=== PATIENT | female | born 1950 | race African-American/Black ===

== ENCOUNTER 2016-04-05 17:34 | Emergency (ER) | payer OTHER ==
[~2016-04-05] VITALS: Wt 48.0 kg
[~2016-04-05 17:34] MED LIST: AMLO-145 PO; CLOP75TA27 PO; LEVE-5 PO; LISI20TA11 PO; SIMV20TA6 PO
[2016-04-05] MEDS ORDERED: FAMOTIDINE 20 MG INJ IV STA (19:03)
[2016-04-05] MEDS ORDERED: SOD CHLORIDE 0.9% 1,000 ML IV STA (19:03)
[2016-04-05] MEDS ORDERED: ONDANSETRON 4 MG INJ IV STA (19:03)
[2016-04-05 19:47] LABS: BASOPHILS % 0.5 % (0.0-2.0); HEMATOCRIT 35.1 % (37.0-47.0); HEMOGLOBIN 11.7 g/dl (12.0-16.0); LYMPHOCYTES # 1.7 10^3/ul (0.8-2.9); LYMPHOCYTES % 34.2 % (15.0-51.0); MEAN CORPUSCULAR HGB CONC 33.5 g/dl (32.0-37.0); MEAN CORPUSCULAR VOLUME 86.7 fl (82.0-101.0); MEAN PLATELET VOLUME 9.3 fl (7.4-10.4); MONOCYTE # 0.4 10^3/ul (0.3-0.9); MONOCYTES % 7.9 % (0.0-11.0); NEUTROPHIL # 2.8 10^3/ul (1.6-7.5); NEUTROPHILS % 56.4 % (39.0-77.0); PLATELET COUNT 167 10^3/UL (140-440); RED BLOOD COUNT 4.05 10^6/ul (4.20-5.40); RED CELL DISTRIBUTION WIDTH 14.5 % (11.5-14.5); WHITE BLOOD COUNT 4.9 10^3/ul (4.8-10.8)
[2016-04-05 19:50] LABS: CONDITION 1; LH ANALYZER COMMENTS 1; SUSPECT 1; UNCORRECTED WBC 5.4 10^3/ul (4.8-10.8)
--- NOTE | 2016-04-05 19:54 | RADRPT ---
PROCEDURE: XR Chest. CLINICAL INDICATION: Abdominal pain. TECHNIQUE: Single frontal view of the chest was obtained COMPARISON: 02/28/2016. FINDINGS: Cardiomegaly. Atherosclerotic calcifications in the thoracic aorta. Hyperinflation suggests a degr ee of COPD. Likely changes of centrolobular emphysema. Lungs otherwise clear. There is no pleural effusion or pneumothorax. IMPRESSION: 1. Cardiomegaly and atherosclerotic calcifications in the thoracic aorta. 2. Otherwise, no evident acute cardiopulmonary disease. RPTAT: [facility] Physician Caryn Date Time Electronically viewed and signed by Jameson Dao Physician on 04/05/2016 19:53 RS/
[2016-04-05 20:06] LABS: ADD UMIC YES; URINE BILIRUBIN (Dip) 1+ (NEGATIVE); URINE BLOOD (Dip) TRACE (NEGATIVE); URINE COLOR LT. YELLOW (YELLOW); URINE GLUCOSE (Dip) NEGATIVE (NEGATIVE); URINE KETONES (Dip) 15 (NEGATIVE); URINE LEUKOCYTE ESTERASE (Dip) 2+ (NEGATIVE); URINE NITRITE (Dip) NEGATIVE (NEGATIVE); URINE TOTAL PROTEIN (Dip) TRACE (NEGATIVE); URINE UROBILINOGEN (Dip) 2.0 E.U./dL (0.1-1.0)
[2016-04-05 20:13] LABS: ALBUMIN 4.4 g/dl (3.3-4.9)
[2016-04-05 20:14] LABS: POTASSIUM 3.8 mmol/L (3.5-5.1)
[2016-04-05 20:16] LABS: ALBUMIN/GLOBULIN RATIO 1.33; BILIRUBIN,INDIRECT 0.5 mg/dl (0-1.1); BILIRUBIN,TOTAL 0.5 mg/dl (0.2-1.3); CREATININE 0.75 mg/dl (0.44-1.00); TOTAL PROTEIN 7.7 g/dl (6.1-8.1)
[2016-04-05 20:17] LABS: CALCIUM 10.7 mg/dl (8.4-10.2)
[2016-04-05 20:52] LABS: BACTERIA,URINE MODERATE; ICTOTEST NEGATIVE (NEGATIVE); SQUAMOUS EPITHELIAL CELL,UR MODERATE; URINE RBCS 0-2 /HPF (0)
[2016-04-05] MEDS ORDERED: CEFTRIAXONE 1 GM/50 ML (PMX) 50 ML IVPB ONE (21:00)
[2016-04-05] MEDS ORDERED: DEXTROSE 5%-0.45% NACL 1,000 ML IV ONE (21:04)
[2016-04-05] MEDS ORDERED: DEXTROSE 5%-0.45% NACL 1,000 ML IV SCH (21:04)
[2016-04-05] MEDS ORDERED: BACTDS PO (21:35)
[2016-04-05] MEDS ORDERED: ONDA4TAB8 PO (21:35)
--- NOTE | 2016-04-05 21:35 | ERD ---
ER Documentation Chief Complaint Date/Time DATE: 04/05/16 TIME: 21:32 Chief Complaint WEAKNESS, DIZZINESS, NOT EATING, NO MAHER HPI This is a 64-year-old female who presents to the emergency room for evaluation of weakness, and decreased appetite for the past 2 days. According to the patient and the patient's son she has not a food in the past 2 days, has been generally feeling weak. The patient denies any chest pain or palpitations associated with this and came to the ER today for evaluation. Patient's denies any fevers associated with this as well ROS All systems reviewed and are negative except as per history of present illness. Medications Home Meds Reported Medications Levetiracetam* (Keppra*) 500 Mg Tablet, 500 MG PO BID, TAB 02/24/16 Clopidogrel Bisulfate (Clopidogrel) 75 Mg Tablet, 75 MG PO DAILY, #30 TAB 02/24/16 Amlodipine Besylate* (Amlodipine Besylate*) 5 Mg Tablet, 5 MG PO DAILY, #30 02/24/16 Simvastatin (Simvastatin) 20 Mg Tablet, 20 MG PO QHS, #30 02/24/16 Lisinopril* (Lisinopril*) 20 Mg Tablet, 20 MG PO DAILY, #30 TAB 02/24/16 Allergies Allergies: Coded Allergies: codeine (Verified Allergy, Severe, 02/28/16) PMhx/Soc History of Surgery: No Anesthesia Reaction: No Hx Neurological Disorder: Yes (stroke 12/2015) Hx Respiratory Disorders: No Hx Cardiac Disorders: Yes (Hypertension) Hx Psychiatric Problems: No Hx Miscellaneous Medical Probl: Yes (CVAx2, seizure, HTN, dsylipidemia) Hx Alcohol Use: No Hx Substance Use: No Hx Tobacco Use: Yes (Former smoker) Smoking Status: Former smoker Physical Exam Vitals Vital Signs Date Time Temp Pulse Resp B/P Pulse Ox O2 Delivery O2 Flow Rate FiO2 04/05/16 20:43 60 16 150/119 100 Room Air 04/05/16 17:53 98.1 74 18 154/87 100 Physical Exam INITIAL VITAL SIGNS: Reviewed by me GENERAL: The patient is well developed and appropriate for usual state of health in no apparent distress HEENT: Dry mucous membranes, pupils equal, round, and reactive to light. EOMI. There is no scleral icterus. NECK: C-spine is soft and supple, there is no meningismus. There is no cervical lymphadenopathy. LUNGS: Clear to auscultation bilaterally. There are no rales, wheezes or rhonchi. HEART: Regular rate and rhythm, no murmurs, clicks, rubs or gallops. ABDOMEN: Soft, non-tender, non-distended. There are bowel sounds in all four quadrants. No rebound or guarding. EXTREMITIES: There is no peripheral cyanosis or edema. No focal swelling or erythema. NEUROLOGICAL: The patient moves all four extremities with 5/5 strength. Cranial nerves II - XII are intact. Normal gait. Alert and oriented SKIN: There is no apparent rash or petechiae. HEME/LYMPHATIC: There is no evidence of excessive bruising or lymphedema. PSYCHIATRIC: The patient does not appear anxious or depressed. Result Diagram: 04/05/16192904/05/161929 Results 24 hrs Laboratory Tests Test 04/05/16 19:30 04/05/16 19:45 Alanine Aminotransferase (ALT/SGPT) 30IU/L Albumin 4.4g/dl Albumin/Globulin Ratio 1.33 Alkaline Phosphatase 66IU/L Anion Gap 16 Aspartate Amino Transf (AST/SGOT) 27IU/L Basophils # 0.010^3/ul Basophils % 0.5% Blood Morphology Comment Blood Urea Nitrogen 11mg/dl Calcium Level 10.7mg/dl Carbon Dioxide Level 28mmol/L Chloride Level 107mmol/L Creatinine 0.75mg/dl Direct Bilirubin 0.00mg/dl Eosinophils # 0.010^3/ul Eosinophils % 1.0% Globulin 3.30g/dl Glucose Level 77mg/dl Hematocrit 35.1% Hemoglobin 11.7g/dl Indirect Bilirubin 0.5mg/dl Lipase 116U/L Lymphocytes # 1.710^3/ul Lymphocytes % 34.2% Mean Corpuscular Hemoglobin 29.0pg Mean Corpuscular Hemoglobin Concent 33.5g/dl Mean Corpuscular Volume 86.7fl Mean Platelet Volume 9.3fl Monocytes # 0.410^3/ul Monocytes % 7.9% Neutrophils # 2.810^3/ul Neutrophils % 56.4% Nucleated Red Blood Cells # 0.010^3/ul Nucleated Red Blood Cells % 0.0/100WBC Platelet Count 41359^3/UL Potassium Level 3.8mmol/L Red Blood Count 4.0510^6/ul Red Cell Distribution Width 14.5% Sodium Level 147mmol/L Total Bilirubin 0.5mg/dl Total Protein 7.7g/dl White Blood Count 4.910^3/ul Urine Bacteria MODERATE Urine Bilirubin 1+ Urine Calcium Oxalate Crystals MODERATE Urine Clarity CLOUDY Urine Color LT. YELLOW Urine Glucose NEGATIVE% Urine Hemoglobin TRACE Urine Ictotest NEGATIVE Urine Ketones 15 Urine Leukocyte Esterase 2+ Urine Microscopic RBC 0-2/HPF Urine Microscopic WBC 5-10/HPF Urine Nitrite NEGATIVE Urine Specific [place] >=1.030 Urine Squamous Epithelial Cells MODERATE Urine Total Protein TRACE Urine Urobilinogen 2.0 E.U./dL Urine pH 6.0 Current Medications Medications (Trade) Dose Ordered Sig/Angie Route PRN Reason Start Time Stop Time Status Last Admin Dose Admin Sodium Chloride (NS) 1,000 ml @ 1,000 mls/hr Q1H STAT IV 04/05/16 19:03 04/05/16 20:02 DC 04/05/16 19:28 Ondansetron HCl (Zofran Inj) 4 mg ONCE STAT IV 04/05/16 19:03 04/05/16 19:04 DC Famotidine 20 mg 20 mg ONCE STAT IV 04/05/16 19:03 04/05/16 19:04 DC 04/05/16 19:28 Ceftriaxone Sodium 50 ml @ 100 mls/hr ONCE ONCE IVPB 04/05/16 21:00 04/05/16 21:29 DC 04/05/16 20:54 Dextrose/Sodium Chloride 1,000 ml @ 500 mls/hr Q2H ONCE IV 04/05/16 21:04 04/05/16 23:03 04/05/16 21:24 Dextrose/Sodium Chloride (D5-1/2ns) 1,000 ml @ 0 mls/hr Q0M IV 04/05/16 21:04 04/05/16 21:06 DC Procedures/MDM This is a 65-year-old female who presents to the emergency room for evaluation of decreased appetite, generalized weakness. When I evaluated this patient she did have dry mucous membranes on my examination. Lab work was obtained including a urinalysis which does show an acute urinary tract infection and mild dehydration. This patient was given 1 L of normal saline, and 1 L of D5 half-normal saline. The patient was also given 1 g Rocephin for her acute urinary tract infection. She is tolerating p.o. challenge at this time, she is hemodynamically stable and appears to be in no acute distress at this time. She will be discharged home with a prescription for Bactrim, and Zofran for nausea. Departure Diagnosis: Primary Impression: Acute cystitis Additional Impressions: Mild dehydration Normocytic anemia Condition: Stable ASHLEE YUEN DO Apr 05, 2016 21:35
[2016-04-05 23:40] VITALS: BP 145/109; PULSE 82; RESP 16; TEMP 98.1
== END 2016-04-05 22:00 | disposition home or self-care (01) ==
LOC: E/R 17:34
DX: N30.00 Acute cystitis without hematuria (principal); E86.0 Dehydration; D64.9 Anemia, unspecified; I10 Essential (primary) hypertension; R40.2142 Coma scale, eyes open, spontaneous, at arrival to emergency department; R40.2252 Coma scale, best verbal response, oriented, at arrival to emergency department; R40.2362 Coma scale, best motor response, obeys commands, at arrival to emergency department; Z87.891 Personal history of nicotine dependence
CPT/HCPCS: 36415; 71010; 80053; 81001; 83690; 85025; 96374; 96375; 99284; J0696; J2405; J7030; 81003

== ENCOUNTER 2016-05-03 21:14 | Emergency (ER) | payer SELFPAY ==
[~2016-05-03] VITALS: Ht 157.5 cm; Wt 54.5 kg
[~2016-05-03 21:14] MED LIST changes: +BACTDS PO; +ONDA4TAB8 PO
[2016-05-03 21:21] VITALS: Ht 157.5 cm; Wt 54.5 kg
[2016-05-03] MEDS ORDERED: LORAZEPAM 2 MG INJ ONE (21:26)
[2016-05-03] MEDS ORDERED: LORAZEPAM 2 MG INJ IV ONE ×2 (22:00)
[2016-05-03] MEDS ORDERED: SOD CHLORIDE 0.9% 500 ML IV ONE (23:00)
[2016-05-03] MEDS ORDERED: LEVETIRACETAM IV 1,000 MG in DEXTROSE 5% 100 ML IVPB ONE (23:00)
[2016-05-03 23:28] LABS: ALBUMIN 4.2 g/dl (3.3-4.9)
[2016-05-03 23:29] LABS: POTASSIUM 4.5 mmol/L (3.5-5.1)
[2016-05-03 23:31] LABS: ALBUMIN/GLOBULIN RATIO 1.61; BILIRUBIN,INDIRECT 0.4 mg/dl (0-1.1); BILIRUBIN,TOTAL 0.4 mg/dl (0.2-1.3); CREATININE 0.69 mg/dl (0.44-1.00); TOTAL PROTEIN 6.8 g/dl (6.1-8.1)
[2016-05-03 23:32] LABS: MAGNESIUM 2.1 mg/dl (1.7-2.5)
[2016-05-03 23:35] LABS: BASOPHILS % 0.4 % (0.0-2.0); EOSINOPHILS % 0.5 % (0.0-7.0); HEMATOCRIT 31.7 % (37.0-47.0); HEMOGLOBIN 10.7 g/dl (12.0-16.0); LYMPHOCYTES % 21.8 % (15.0-51.0); MEAN CORPUSCULAR HEMOGLOBIN 29.9 pg (29.0-33.0); MEAN CORPUSCULAR HGB CONC 33.7 g/dl (32.0-37.0); MEAN CORPUSCULAR VOLUME 88.7 fl (82.0-101.0); MEAN PLATELET VOLUME 8.7 fl (7.4-10.4); MONOCYTE # 0.4 10^3/ul (0.3-0.9); MONOCYTES % 9.3 % (0.0-11.0); NEUTROPHIL # 3.2 10^3/ul (1.6-7.5); PLATELET COUNT 297 10^3/UL (140-440); RED BLOOD COUNT 3.57 10^6/ul (4.20-5.40); UNCORRECTED WBC 4.7 10^3/ul (4.8-10.8); WHITE BLOOD COUNT 4.7 10^3/ul (4.8-10.8)
[2016-05-03 23:42] LABS: CONDITION 1; LH ANALYZER COMMENTS 1
--- NOTE | 2016-05-04 02:52 | ERD ---
ER Documentation Chief Complaint Date/Time DATE: 05/04/16 TIME: 02:50 Chief Complaint c/o bilat leg cramps, h/o same fqtly. appears spastic, h/o sz's HPI This 62 year female comes in with complaints of bilateral leg has been she said she feels short any focal partial seizures. She denies being complaint with her Keppra. No fevers no chills. No tongue biting no incontinence. ROS All systems reviewed and are negative except as per history of present illness. Medications Home Meds Active Scripts Ondansetron Hcl* (Zofran*) 4 Mg Tablet, 4 MG PO Q8H Y for NAUSEA AND/OR VOMITING , #12 TAB Prov:ASHLEE YUEN DO 04/05/16 Sulfamethoxazole-Trimethoprim* (Bactrim* DS) 800-160 Mg Tab, 1 TAB PO BID for 10 Days, TAB Prov:ASHLEE YUEN DO 04/05/16 Reported Medications Levetiracetam* (Keppra*) 500 Mg Tablet, 500 MG PO BID, TAB 02/24/16 Clopidogrel Bisulfate (Clopidogrel) 75 Mg Tablet, 75 MG PO DAILY, #30 TAB 02/24/16 Amlodipine Besylate* (Amlodipine Besylate*) 5 Mg Tablet, 5 MG PO DAILY, #30 02/24/16 Simvastatin (Simvastatin) 20 Mg Tablet, 20 MG PO QHS, #30 02/24/16 Lisinopril* (Lisinopril*) 20 Mg Tablet, 20 MG PO DAILY, #30 TAB 02/24/16 Allergies Allergies: Coded Allergies: codeine (Verified Allergy, Severe, 02/28/16) PMhx/Soc History of Surgery: No Anesthesia Reaction: No Hx Neurological Disorder: Yes (stroke 12/2015) Hx Respiratory Disorders: No Hx Cardiac Disorders: Yes (Hypertension) Hx Psychiatric Problems: No Hx Miscellaneous Medical Probl: Yes (CVAx2, seizure, HTN, dsylipidemia) Hx Alcohol Use: No Hx Substance Use: No Hx Tobacco Use: Yes (Former smoker) Smoking Status: Current every day smoker Physical Exam Vitals Vital Signs Date Time Temp Pulse Resp B/P Pulse Ox O2 Delivery O2 Flow Rate FiO2 05/04/16 02:46 60 18 144/68 100 Room Air 05/04/16 01:00 64 18 139/69 100 Room Air 05/03/16 23:11 89 22 121/63 95 Room Air 05/03/16 21:21 98.4 83 20 142/74 97 Physical Exam Const: [] Head: Atraumatic Eyes: Normal Conjunctiva ENT: Normal External Ears, Nose and Mouth. Neck: Full range of motion..~ No meningismus. Resp: Clear to auscultation bilaterally Cardio: Regular rate and rhythm, no murmurs Abd: Soft, non tender, non distended. Normal bowel sounds Skin: No petechiae or rashes Back: No midline or flank tenderness Ext: No cyanosis, or edema Neur: Awake and alert Psych: Normal Mood and Affect Result Diagram: 05/03/16223405/03/162234 Results 24 hrs Laboratory Tests Test 05/03/16 22:35 Alanine Aminotransferase (ALT/SGPT) 29IU/L Albumin 4.2g/dl Albumin/Globulin Ratio 1.61 Alkaline Phosphatase 56IU/L Anion Gap 19 Aspartate Amino Transf (AST/SGOT) 24IU/L Basophils # 0.010^3/ul Basophils % 0.4% Blood Morphology Comment Blood Urea Nitrogen 10mg/dl Calcium Level 11.0mg/dl Carbon Dioxide Level 27mmol/L Chloride Level 105mmol/L Creatinine 0.69mg/dl Direct Bilirubin 0.00mg/dl Eosinophils # 0.010^3/ul Eosinophils % 0.5% Globulin 2.60g/dl Glucose Level 93mg/dl Hematocrit 31.7% Hemoglobin 10.7g/dl Indirect Bilirubin 0.4mg/dl Lymphocytes # 1.010^3/ul Lymphocytes % 21.8% Magnesium Level 2.1mg/dl Mean Corpuscular Hemoglobin 29.9pg Mean Corpuscular Hemoglobin Concent 33.7g/dl Mean Corpuscular Volume 88.7fl Mean Platelet Volume 8.7fl Monocytes # 0.410^3/ul Monocytes % 9.3% Neutrophils # 3.210^3/ul Neutrophils % 68.0% Nucleated Red Blood Cells # 0.010^3/ul Nucleated Red Blood Cells % 0.0/100WBC Platelet Count 18148^3/UL Potassium Level 4.5mmol/L Red Blood Count 3.5710^6/ul Red Cell Distribution Width 15.0% Sodium Level 146mmol/L Total Bilirubin 0.4mg/dl Total Protein 6.8g/dl White Blood Count 4.710^3/ul Current Medications Medications (Trade) Dose Ordered Sig/Angie Route PRN Reason Start Time Stop Time Status Last Admin Dose Admin Lorazepam (Ativan) 1 mg ONCE ONCE IV 05/03/16 22:00 05/03/16 22:01 DC 05/03/16 21:50 Lorazepam 1 mg 1 mg ONCE ONCE IV 05/03/16 22:00 05/03/16 22:02 DC 05/03/16 22:20 Levetiracetam 1000 mg/Dextrose 110 ml @ 440 mls/hr ONCE ONCE IVPB 05/03/16 23:00 05/03/16 23:14 DC 05/03/16 23:00 Sodium Chloride (NS) 500 ml @ 500 mls/hr Q1H ONCE IV 05/03/16 23:00 05/03/16 23:59 DC 05/03/16 22:53 Procedures/MDM Medical decision-making: This very pleasant patient comes in essentially for possible seizures. At this point she said no further seizure-like activity. She' s been discharged home. Patient is loaded with Keppra here. Told to follow-up with her primary care physician and to be compliant with her Keppra medication. No evidence of seizures. Departure Diagnosis: Primary Impression: Muscle spasm Condition: Stable Patient Instructions: Seizure, Recurrent [Adult] DAISY GOMEZ May 04, 2016 02:52
[2016-05-04 03:02] VITALS: BP 141/73; PULSE 81; RESP 20
[2016-05-04] MEDS ORDERED: DONE5TAB46 PO (14:20)
== END 2016-05-04 03:02 | disposition home or self-care (01) ==
LOC: E/R 21:14
DX: R25.2 Cramp and spasm (principal); I10 Essential (primary) hypertension; F17.210 Nicotine dependence, cigarettes, uncomplicated; R40.2142 Coma scale, eyes open, spontaneous, at arrival to emergency department; R40.2252 Coma scale, best verbal response, oriented, at arrival to emergency department; R40.2362 Coma scale, best motor response, obeys commands, at arrival to emergency department
CPT/HCPCS: 80053; 83735; 85025; 96374; 96375; 96376; 99284; J1953; J2060; J7040

== ENCOUNTER 2016-05-04 11:06 | Inpatient (IN) | payer MEDICAID ==
[~2016-05-04] VITALS: Ht 157.5 cm; Wt 50.0 kg
[2016-05-04] MEDS ORDERED: ASPIRIN 325 MG TAB PO STA (11:47)
[2016-05-04] MEDS ORDERED: SOD CHLORIDE 0.9% 500 ML IV STA (11:47)
[2016-05-04 12:33] LABS: BASOPHILS % 0.6 % (0.0-2.0); EOSINOPHILS % 0.5 % (0.0-7.0); HEMATOCRIT 37.9 % (37.0-47.0); HEMOGLOBIN 12.5 g/dl (12.0-16.0); LYMPHOCYTES # 1.2 10^3/ul (0.8-2.9); LYMPHOCYTES % 24.8 % (15.0-51.0); MEAN CORPUSCULAR HEMOGLOBIN 29.5 pg (29.0-33.0); MEAN CORPUSCULAR HGB CONC 33.1 g/dl (32.0-37.0); MEAN PLATELET VOLUME 8.8 fl (7.4-10.4); MONOCYTE # 0.5 10^3/ul (0.3-0.9); MONOCYTES % 10.3 % (0.0-11.0); NEUTROPHIL # 3.1 10^3/ul (1.6-7.5); NEUTROPHILS % 63.8 % (39.0-77.0); PLATELET COUNT 311 10^3/UL (140-440); RED BLOOD COUNT 4.25 10^6/ul (4.20-5.40); RED CELL DISTRIBUTION WIDTH 15.5 % (11.5-14.5); UNCORRECTED WBC 4.9 10^3/ul (4.8-10.8); WHITE BLOOD COUNT 4.9 10^3/ul (4.8-10.8)
--- NOTE | 2016-05-04 12:36 | RADRPT ---
PROCEDURE: CT head without Contrast CLINICAL INDICATION: Possible stroke TECHNIQUE: Transaxial images were made through the head on a multi-slice scanner without intraveno us contrast. Coronal and sagittal images were subsequently reformatted. One or more of the following dose reduction techniques were used: - Automated exposure control. - Adjustment of the mA and/or kV according to patient size. - Use of iterative reconstruction technique. Radiation dose: CTDIvol = 44.58 mGy; DLP = 630.20 mGy-cm. COMPARISON: 02/24/2016 FINDINGS: The calvarium appears intact. The mastoid air cells and paranasal sinuses are well-aerated.. The lateral and third ventricles are mildly prominent but proportionate to the slightly prominent fi ssures and sulci compatible with mild diffuse cortical loss. The fourth ventricle is normal in size and there is no significant midline shift. Since the previous study, there has been an increasing a dougie of low attenuation in the distribution of the right middle cerebral artery involving right tempo ral, frontal and parietal lobes. There is no significant mass effect. Patchy hypodensities in the deep periventricular white matter tracts compatible with chronic small v essel ischemic change. No intracranial bleed, mass, or extra-axial fluid collection is identified. IMPRESSION: 1. Since the previous CT of 02/24/2016, there has been an interval increase to the area of low atte nuation in the distribution of the right middle cerebral artery involving the right frontal, parieta l and to a lesser extent temporal lobes compatible with acute ischemic infarction superimposed on ch ronic changes of encephalomalacia. 2. Mild underlying diffuse cortical atrophy with chronic small vessel ischemic changes seen in the deep periventricular white matter tracts. 3. No intracranial bleed, mass, or extra-axial fluid collection is evident. Findings of acute ischemic infarct in distribution right middle cerebral artery were telephoned by Jameson Avendano MD to Dr. Barclay on 05/04/2016 at 1231 hours. Physician Lennie Date Time Electronically viewed and signed by Physician Lennie on 05/04/2016 12:36 /
[2016-05-04 12:39] LABS: CONDITION 1; LH ANALYZER COMMENTS 1
[2016-05-04 12:43] LABS: ALBUMIN 4.9 g/dl (3.3-4.9); CHLORIDE 105 mmol/L (97-110); INR 1.05; POTASSIUM 3.8 mmol/L (3.5-5.1); PROTIME 13.7 Sec (12.2-14.2); PT RATIO 1.1; SODIUM 147 mmol/L (135-144)
[2016-05-04 12:44] LABS: PARTIAL THROMBOPLASTIN TIME 28.8 Sec (25.0-35.0)
[2016-05-04 12:45] LABS: CREATININE 0.73 mg/dl (0.44-1.00)
[2016-05-04 12:46] LABS: ALANINE AMINOTRANSFERASE 27 IU/L (13-69); ALBUMIN/GLOBULIN RATIO 1.36; ALKALINE PHOSPHATASE 71 IU/L (42-121); ANION GAP 19 (8-16); ASPARTATE AMINO TRANSFERASE 34 IU/L (15-46); BILIRUBIN,INDIRECT 0.7 mg/dl (0-1.1); BILIRUBIN,TOTAL 0.7 mg/dl (0.2-1.3); BLOOD UREA NITROGEN 7 mg/dl (7-20); CARBON DIOXIDE 27 mmol/L (21-31); GLUCOSE 81 mg/dl (70-220); TOTAL PROTEIN 8.5 g/dl (6.1-8.1)
[2016-05-04 12:47] LABS: CALCIUM 11.3 mg/dl (8.4-10.2)
[2016-05-04 12:58] LABS: TROPONIN-I < 0.012 ng/ml (0.00-0.12)
--- NOTE | 2016-05-04 13:09 | RADRPT ---
PROCEDURE: XR Chest. CLINICAL INDICATION: Possible stroke. TECHNIQUE: Single frontal view of the chest was obtained COMPARISON: Chest x-ray 04/05/2016 07:35 p.m.. FINDINGS: There are atherosclerotic calcifications in the aortic arch. There are degenerative osteophytes in the thoracic spine. The soft tissues are generous. The heart, pulmonary vasculature, lung murrell an d pleural spaces are normal. There has been no change when compared to the prior study. IMPRESSION: 1. Atherosclerosis of the aortic arch. 2. Stable chest x-ray with no evidence of active cardiopulmonary disease. RPTAT:AAJJ Physician Cherri Date Time Electronically viewed and signed by Andriy Bach Physician on 05/04/2016 13:08 JUANITA/
[2016-05-04] MEDS ORDERED: DONE5TAB46 PO (14:20)
--- NOTE | 2016-05-04 14:39 | ERA ---
ER Documentation Chief Complaint Date/Time DATE: 05/04/16 TIME: 14:33 Chief Complaint BROUGHT IN VIA EMS DUE TO WEAKNESS AND CONSISTENT TREMORS HPI This is 65-year-old female with a history of stroke with mild left upper and lower extremity residual weakness. The patient states she was seen here last night because she thought she was having seizures. She says she was having twitching and shaking of her left arm. She says that she was sent home without any labs or CT brain. Patient says today she is worse. She says that she is having some weakness to her left arm and left leg that started stroke with mild left upper and lower extremity residual weakness. The patient states she was seen here last night because she thought she was having seizures. She says she was having uncontrolled jerking of her left arm. She says after she was discharged she went home and her left arm and left leg became very heavy all of a sudden. She says today the left jerking is worse in her arm and leg are not better. She has no speech change or visual change. She says her left arm and leg are much worse than usual as far as strength goes. ROS All systems reviewed and are negative except as per history of present illness. Medications Home Meds Active Scripts Ondansetron Hcl* (Zofran*) 4 Mg Tablet, 4 MG PO Q8H Y for NAUSEA AND/OR VOMITING , #12 TAB Prov:ASHLEE YUEN DO 04/05/16 Reported Medications Donepezil* (Aricept*) 5 Mg Tablet, 5 MG PO DAILY, TAB 05/04/16 Levetiracetam* (Keppra*) 500 Mg Tablet, 500 MG PO BID, TAB 02/24/16 Clopidogrel Bisulfate (Clopidogrel) 75 Mg Tablet, 75 MG PO DAILY, #30 TAB 02/24/16 Amlodipine Besylate* (Amlodipine Besylate*) 5 Mg Tablet, 5 MG PO DAILY, #30 02/24/16 Simvastatin (Simvastatin) 20 Mg Tablet, 20 MG PO QHS, #30 02/24/16 Lisinopril* (Lisinopril*) 20 Mg Tablet, 20 MG PO DAILY, #30 TAB 02/24/16 Discontinued Scripts Sulfamethoxazole-Trimethoprim* (Bactrim* DS) 800-160 Mg Tab, 1 TAB PO BID for 10 Days, TAB Prov:ASHLEE YUEN DO 04/05/16 Allergies Allergies: Coded Allergies: codeine (Verified Allergy, Severe, 02/28/16) PMhx/Soc History of Surgery: No Anesthesia Reaction: No Hx Neurological Disorder: Yes (STROKE X2, SEIZURE ) Hx Respiratory Disorders: No Hx Cardiac Disorders: Yes (HTN, HDL) Hx Psychiatric Problems: No Hx Miscellaneous Medical Probl: No Hx Alcohol Use: No Hx Substance Use: No Hx Tobacco Use: Yes (QUIT 23 YEARS AGO) Smoking Status: Former smoker FmHx Family History: No coronary disease Physical Exam Vitals Vital Signs Date Time Temp Pulse Resp B/P Pulse Ox O2 Delivery O2 Flow Rate FiO2 05/04/16 11:10 98.5 80 20 146/88 99 Physical Exam Const: Well-developed, well-nourished Head: Atraumatic, normocephalic Eyes: Normal Conjunctiva, PERRLA, EOMI, normal sclera, no nystagmus ENT: Normal External Ears, Nose and Mouth, moist mucus membranes. Neck: Full range of motion. No meningismus, no lymphadenopathy. Resp: Clear to auscultation bilaterally, no wheezing, rhonchi, rales Cardio: Regular rate and rhythm, no murmurs, S1 S2 present Abd: Soft, non tender x 4, non distended. Normal bowel sounds, no guarding or rebound, no pulsitile abdominal masses or bruits Skin: No petechiae or rashes, no ecchymosis , no maculopapular rash Back: No midline or flank tenderness Ext: No cyanosis, or edema, FROM x 4, normal inspection, neurovascularly intact x 4 Neur: Awake and alert, STR 5/5 x 2, left arm and leg strength 3 out of 5 with left upper extremity inconsistent jerking worse with movement attempts, sensation intact x 4, no focal findings, cerebellum intact Psych: Normal Mood and Affect Result Diagram: 05/04/16 1205 05/04/16 1205 Results 24 hrs Laboratory Tests Test 05/04/16 12:05 Activated Partial Thromboplast Time 28.8Sec Alanine Aminotransferase (ALT/SGPT) 27IU/L Albumin 4.9g/dl Albumin/Globulin Ratio 1.36 Alkaline Phosphatase 71IU/L Anion Gap 19 Aspartate Amino Transf (AST/SGOT) 34IU/L Basophils # 0.010^3/ul Basophils % 0.6% Blood Morphology Comment Blood Urea Nitrogen 7mg/dl Calcium Level 11.3mg/dl Carbon Dioxide Level 27mmol/L Chloride Level 105mmol/L Creatinine 0.73mg/dl Direct Bilirubin 0.00mg/dl Eosinophils # 0.010^3/ul Eosinophils % 0.5% Globulin 3.60g/dl Glucose Level 81mg/dl Hematocrit 37.9% Hemoglobin 12.5g/dl INR International Normalized Ratio 1.05 Indirect Bilirubin 0.7mg/dl Lymphocytes # 1.210^3/ul Lymphocytes % 24.8% Mean Corpuscular Hemoglobin 29.5pg Mean Corpuscular Hemoglobin Concent 33.1g/dl Mean Corpuscular Volume 89.0fl Mean Platelet Volume 8.8fl Monocytes # 0.510^3/ul Monocytes % 10.3% Neutrophils # 3.110^3/ul Neutrophils % 63.8% Nucleated Red Blood Cells # 0.010^3/ul Nucleated Red Blood Cells % 0.0/100WBC Platelet Count 71458^3/UL Potassium Level 3.8mmol/L Prothrombin Time 13.7Sec Prothrombin Time Ratio 1.1 Red Blood Count 4.2510^6/ul Red Cell Distribution Width 15.5% Sodium Level 147mmol/L Total Bilirubin 0.7mg/dl Total Protein 8.5g/dl Troponin I < 0.012ng/ml White Blood Count 4.910^3/ul Current Medications Medications (Trade) Dose Ordered Sig/Angie Route PRN Reason Start Time Stop Time Status Last Admin Dose Admin Sodium Chloride (NS) 500 ml @ 500 mls/hr Q1H STAT IV 05/04/16 11:47 05/04/16 12:46 DC 05/04/16 12:03 Aspirin (Aspirin) 325 mg ONCE STAT PO 05/04/16 11:47 05/04/16 11:52 DC 05/04/16 13:34 Procedures/MDM PROCEDURE: XR Chest. CLINICAL INDICATION: Possible stroke. TECHNIQUE: Single frontal view of the chest was obtained COMPARISON: Chest x-ray 04/05/2016 07:35 p.m.. FINDINGS: There are atherosclerotic calcifications in the aortic arch. There are degenerative osteophytes in the thoracic spine. The soft tissues are generous. The heart, pulmonary vasculature, lung murrell and pleural spaces are normal. There has been no change when compared to the prior study. IMPRESSION: 1. Atherosclerosis of the aortic arch. 2. Stable chest x-ray with no evidence of active cardiopulmonary disease. RPTAT:AAJJ Andriy Bach Physician Date Time Electronically viewed and signed by Andriy Bach Physician on 05/04/2016 13:08 JM/ CC: TAZ GIRARD DO PROCEDURE: CT head without Contrast CLINICAL INDICATION: Possible stroke TECHNIQUE: Transaxial images were made through the head on a multi-slice scanner without intravenous contrast. Coronal and sagittal images were subsequently reformatted. One or more of the following dose reduction techniques were used: - Automated exposure control. - Adjustment of the mA and/or kV according to patient size. - Use of iterative reconstruction technique. Radiation dose: CTDIvol = 44.58 mGy; DLP = 630.20 mGy-cm. COMPARISON: 02/24/2016 FINDINGS: The calvarium appears intact. The mastoid air cells and paranasal sinuses are well-aerated.. The lateral and third ventricles are mildly prominent but proportionate to the slightly prominent fissures and sulci compatible with mild diffuse cortical loss. The fourth ventricle is normal in size and there is no significant midline shift. Since the previous study, there has been an increasing area of low attenuation in the distribution of the right middle cerebral artery involving right temporal, frontal and parietal lobes. There is no significant mass effect. Patchy hypodensities in the deep periventricular white matter tracts compatible with chronic small vessel ischemic change. No intracranial bleed, mass, or extra -axial fluid collection is identified. IMPRESSION: 1. Since the previous CT of 02/24/2016, there has been an interval increase to the area of low attenuation in the distribution of the right middle cerebral artery involving the right frontal, parietal and to a lesser extent temporal lobes compatible with acute ischemic infarction superimposed on chronic changes of encephalomalacia. 2. Mild underlying diffuse cortical atrophy with chronic small vessel ischemic changes seen in the deep periventricular white matter tracts. 3. No intracranial bleed, mass, or extra-axial fluid collection is evident. Findings of acute ischemic infarct in distribution right middle cerebral artery were telephoned by Rito Avendano MD to Dr. Girard on 05/04/2016 at 1231 hours. Physician Lennie Date Time Electronically viewed and signed by Jameson Avendano Physician on 05/04/2016 12:36 RH/ CC: TAZ GIRARD DO Patient has subsequently undergone an acute infarct likely after she got discharged from here last night. She is not a TPA candidate due to CT evidence of infarct as well as the time duration since onset of symptoms. She is having some uncontrollable jerking which could be partial seizures. She will need to be admitted to the hospital for MRI and further workup Departure Diagnosis: Primary Impression: CVA (cerebral vascular accident) Qualified Code: I63.511 - Cerebrovascular accident (CVA) due to occlusion of right middle cerebral artery Condition: Fair TAZ GIRARD DO May 04, 2016 14:39
[2016-05-04] MEDS ORDERED: SOD CHLORIDE 0.9% 1,000 ML IV SCH (14:41)
[2016-05-04 14:51] VITALS: TEMP 98.1
[2016-05-04] MEDS ORDERED: ONDANSETRON 4 MG INJ IV PRN ×2 (15:00→17:30)
[2016-05-04] MEDS ORDERED: ACETAMINOPHEN 325 MG TAB PO PRN (15:00)
[2016-05-04] MEDS ORDERED: ONDANSETRON 4 MG TAB PO PRN (17:30)
[2016-05-04] MEDS ORDERED: DOCUSATE SODIUM 100 MG CAP PO PRN (17:30)
[2016-05-04] MEDS ORDERED: NITROGLYCERIN (SL) 0.4 MG TAB SL PRN (17:30)
[2016-05-04] MEDS ORDERED: NACL 0.9% 3 ML SYG IV SCH (17:30)
--- NOTE | 2016-05-04 18:32 | HP ---
DATE OF ADMISSION: 05/04/2016 CONSULTANTS: Neurology. CHIEF COMPLAINT: Left upper extremity tremor, seizure activity. HISTORY OF PRESENT ILLNESS: This is a 65-year-old female who is known to me from her prior hospital ization with past medical history of hypertension, seizure, dyslipidemia, CVA, debility, who was rec ently discharged on 03/11/2016 from [facility] was supposed to follow up with neur ology as outpatient, although she missed her appointment and has not made an appointment. She prese nted to [facility] Emergency 05/04/2016 having left upper extremity weakness. CT of the b rain did not show any acute finding and was discharged home. She presents back to [facility] emergency room on the following day, today on 05/04/2016 with increased severity of her tremor an d seizure activity and left upper and lower extremity weakness. The CT of the brain which was obtai chaka and did not show any acute finding. There has been interval increase in the area of low attenua tion within her right middle lobe, cerebral artery involving the right frontoparietal and to a lesse r extent temporal lobe compatible with acute ischemia/infarction superimposed on chronic changes of the encephalomalacia, moderate underlying diffuse cortical atrophy with chronic small vessel ischemi c changes seen with deep periventricular white matter tract, no intracranial bleed, mass or intracra nial fluid collection. The patient states that she has not been compliant with some of her medicati ons such as the Plavix, aspirin and her seizure medication. The patient's vitals were found to be s table. At this time, the patient continues to have tremor in her left upper extremity. She denies having any fever, chills, weight gain, weight loss, anorexia. No chest pain, palpitations, edema, o rthopnea. No change in visual acuity, diplopia, photophobia. No headache, dizziness, lightheadedne ss. No loss of consciousness. Positive for left upper extremity tremors, otherwise the 12 review o f systems has been found to be negative. PAST MEDICAL AND SURGICAL HISTORY: As above per HPI. MEDICATIONS: 1. Amlodipine 5 mg. 2. Plavix 75 mg 3. Donepezil 5 mg 4. Keppra 500 mg. 5. Lasix 20 mg 6. Zofran 4 mg. 7. Simvastatin 10 mg. ALLERGIES: CODEINE. SOCIAL HISTORY: She lives at home with her family. Positive being former smoker. Positive for his tory of alcohol, no illicit drugs. REVIEW OF SYSTEMS: As above per HPI. Otherwise, the 12 review of systems was found to be negative. PHYSICAL EXAMINATION: VITAL SIGNS: Temperature 98.1, pulse 68, blood pressure 132/99, oxygen 98% in room air. GENERAL APPEARANCE: Patient is very cachectic and underweight. EYES AND ENT: Conjunctivae and lids are normal. Pupils are normal. Extraocular normal. Hearing g rossly normal S1, S2 normal. Oral mucosa mildly dry. NECK: Supple. Trachea is midline. No lymphadenopathy. RESPIRATORY: Effort is normal. Clear to auscultate bilaterally. CARDIOVASCULAR: Normal S1, S2. Regular rhythm and rate. No murmur, no bruits, no edema. Peripher al pulses, radial pulses palpable. Cap refill is normal. CHEST: Normal expansion of thorax during inspiration. GASTROINTESTINAL: Abdomen is soft, nontender, not distended. Bowel sounds present. No guarding, n o rebound. GENITOURINARY: Deferred. MUSCULOSKELETAL: Upper and lower extremities within normal limits. Full range of motion, strength 5/5. MUSCULOSKELETAL: Upper extremities within normal limits. Strength is 3/5 both left upper and lower extremity, although this is chronic. Patient does have a history of left upper and lower extremity weakness. NEUROLOGIC: Cranial II through XII seem grossly intact. PSYCHIATRIC: She is awake, alert, oriented. LABORATORY WORK AND IMAGING: WBC 4.9, hemoglobin 12.5, hematocrit 37.9, platelets 311. Sodium 147, potassium 3.8, chloride 105, bicarbonate 27, BUN 7, creatinine 0.73, glucose 81, calcium 11.3. LFT s all within normal limits. ASSESSMENT AND PLAN: 1. Left upper and lower extremity weakness. 2. Acute on chronic cerebrovascular accident. Will obtain MRI of the brain. We will restart patie nt's aspirin, Plavix and statin. Neurology has been consulted. We will follow their recommendation . 3. Seizure activity is likely secondary to noncompliance with medication. Patient was started on K eppra. 4. Dyslipidemia. Continue statin. 5. Essential hypertension, well controlled on medical management. 6. History of noncompliance with medication. Education was provided regarding the importance of be ing compliant with medication and not being compliant with medication may lead to worsening of her c ondition and cerebrovascular accident and myocardial infarction. 7. Debility. PT, OT evaluate and treat. 8. Dementia. Continue Aricept. 9. For deep venous thrombosis prophylaxis, on Lovenox. 10. For gastrointestinal prophylaxis, on Pepcid. 11. We will continue to monitor patient closely. Further recommendations, management and treatment as per clinical course. Total time spent for this patient on evaluation and workup 45 minutes. Dictated By: DIONTE KIRK/NTS Conf#: [id number] DID#: [id number]
[2016-05-04] MEDS: LEVETIRACETAM IV 500 MG in SOD CHLORIDE 0.9% 100 ML IVPB SCH (20:24)
[2016-05-04] MEDS: FAMOTIDINE 20 MG TAB PO SCH (20:24)
[2016-05-04] MEDS ORDERED: ATORVASTATIN 10 MG TAB PO SCH (21:00)
[2016-05-04] MEDS ORDERED: NON-FORMULARY/PATIENT OWN MED (Simvastatin 20 MG) PO SCH (21:00)
[2016-05-04 22:45] VITALS: PULSE 60
[2016-05-04 23:00] VITALS: BP 119/90; PULSE 66; RESP 20; Ht 157.5 cm; Wt 50.0 kg
[2016-05-05] VITALS (12 sets, daily range): BP systolic 115–145; BP diastolic 60–90; PULSE 56–110; RESP 18–20
[2016-05-05 07:26] LABS: BASOPHILS % 0.5 % (0.0-2.0); HEMATOCRIT 31.2 % (37.0-47.0); HEMOGLOBIN 10.5 g/dl (12.0-16.0); LYMPHOCYTES # 1.3 10^3/ul (0.8-2.9); LYMPHOCYTES % 31.1 % (15.0-51.0); MEAN CORPUSCULAR HEMOGLOBIN 30.2 pg (29.0-33.0); MEAN CORPUSCULAR HGB CONC 33.6 g/dl (32.0-37.0); MEAN CORPUSCULAR VOLUME 89.8 fl (82.0-101.0); MEAN PLATELET VOLUME 8.6 fl (7.4-10.4); MONOCYTE # 0.4 10^3/ul (0.3-0.9); NEUTROPHIL # 2.5 10^3/ul (1.6-7.5); NEUTROPHILS % 58.4 % (39.0-77.0); PLATELET COUNT 242 10^3/UL (140-440); RED BLOOD COUNT 3.47 10^6/ul (4.20-5.40); RED CELL DISTRIBUTION WIDTH 15.3 % (11.5-14.5); UNCORRECTED WBC 4.3 10^3/ul (4.8-10.8); WHITE BLOOD COUNT 4.3 10^3/ul (4.8-10.8)
[2016-05-05 07:41] LABS: CONDITION 1; LH ANALYZER COMMENTS 1
[2016-05-05 07:50] LABS: POTASSIUM 3.6 mmol/L (3.5-5.1)
[2016-05-05 07:53] LABS: CREATININE 0.76 mg/dl (0.44-1.00)
[2016-05-05 07:54] LABS: CALCIUM 10.2 mg/dl (8.4-10.2); MAGNESIUM 2.1 mg/dl (1.7-2.5)
[2016-05-05 08:48] LABS: CHOL/HDL RATIO 3.6 RATIO
[2016-05-05] MEDS: LEVETIRACETAM IV 500 MG in SOD CHLORIDE 0.9% 100 ML IVPB SCH ×2 (09:00→11:35)
[2016-05-05] MEDS: ACETAMINOPHEN 325 MG TAB PO PRN (09:34)
[2016-05-05] MEDS: DONEPEZIL 5 MG TAB PO SCH (09:35)
[2016-05-05] MEDS: ASPIRIN 81 MG TAB PO SCH (09:35)
[2016-05-05] MEDS: CLOPIDOGREL 75 MG TAB PO SCH (09:36)
[2016-05-05] MEDS: LISINOPRIL 20 MG TAB PO SCH (09:39)
[2016-05-05] MEDS: FAMOTIDINE 20 MG TAB PO SCH ×2 (09:39→20:57)
[2016-05-05] MEDS: AMLODIPINE 5 MG TAB PO SCH (09:39)
[2016-05-05] MEDS: ENOXAPARIN 40 MG/0.4 ML SYG SC SCH (09:46)
--- NOTE | 2016-05-05 11:52 | CONS ---
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 -suspect hemiballismus, unclear if she ever had seizure work up -Routine EEG ordered, if potential for seizures then will initiate Keppra for now discontinued -MRI Brain w/o contrast, MRA Head/Neck without contrast recurrent infarction in the same vascular territory is suggestive of a potential underlying issue with Right MCA -continue ASA 81 mg and Plavix 75 mg -check HBA1C -FLP- LDL: 125 will increase Lipitor to 40 mg qhs -repeat ECHO with a bubble study -tele monitoring for afib -DVT ppx -PT/OT/Speech -will follow Problems: Consultation Date/Type/Reason Admit Date/Time May 04, 2016 at 22:32 Date of Consultation: May 05, 2016 Type of Consultation: Neurology Reason for Consultation Right MCA stroke, r/o seizure Referring Provider: DIONTE GONSALEZ MD Hx of Present Illness 65 year old female with hx of HTN, HLD, cryptogenic large Right MCA encephalomalacia from CVA in 2016, prior history of smoking presented on 05/04/16 with increasing left UE weakness. She initially presented to ER with weakness , an initial Head CT showed no acute changes and she was dc home. She returned the following day with increased tremor in her LUE with possible seizure activity. Per previous documentation from neurologist, movement disorder and hemiballismus was suspected as she previously had left arm choreiform movements , however she was continued on Keppra 500 mg q12h. At some point she was taken off by her PCP she reported previous stomach upset with Keppra and decreased appetite. Repeat Head CT shows Right MCA right frontal, parietal and temporal infarction acute on chronic strokes with encephalomalacia. left arm weakness Past Medical History CVA HTN HLD Social History Smoking Status: Former smoker Exam/Review of Systems Vital Signs Vitals Vital Signs Date Time Temp Pulse Resp B/P Pulse Ox O2 Delivery O2 Flow Rate FiO2 05/05/16 11:34 98.3 84 18 131/80 96 05/05/16 04:00 Room Air 05/04/16 14:51 2.0 Exam awake and alert oriented x3 paucity in speech following all command no neglect CN: GUCCI, blinks to threat appropriately, left NLF flattening palate upgoing uvula midline scm/trap intact tongue midline Motor: shrugs shoulders equally, right arm and leg 5/5 left arm anti-gravity 3/5 with drift, left leg lifts briefly anti-gravity wavering to bed Tremor in left arm consistent with choreiform movements Sensory decreased to left arm and leg Coordination Left arm tremor and ataxia in proportion to weakness Results Result Diagram: 05/05/1635 05/05/16 0635 Results 24 hrs Laboratory Tests Test 05/04/16 12:05 05/05/16 06:35 Activated Partial Thromboplast Time 28.8 Alanine Aminotransferase (ALT/SGPT) 27 Albumin 4.9 Albumin/Globulin Ratio 1.36 Alkaline Phosphatase 71 Anion Gap 19 H 15 Aspartate Amino Transf (AST/SGOT) 34 Basophils # 0.0 0.0 Basophils % 0.6 0.5 Blood Morphology Comment Blood Urea Nitrogen 7 8 Calcium Level 11.3 H 10.2 Carbon Dioxide Level 27 25 Chloride Level 105 108 Creatinine 0.73 0.76 Direct Bilirubin 0.00 Eosinophils # 0.0 0.0 Eosinophils % 0.5 1.0 Globulin 3.60 H Glucose Level 81 59 #L Hematocrit 37.9 31.2 L Hemoglobin 12.5 10.5 L INR International Normalized Ratio 1.05 Indirect Bilirubin 0.7 Lymphocytes # 1.2 1.3 Lymphocytes % 24.8 31.1 Mean Corpuscular Hemoglobin 29.5 30.2 Mean Corpuscular Hemoglobin Concent 33.1 33.6 Mean Corpuscular Volume 89.0 89.8 Mean Platelet Volume 8.8 8.6 Monocytes # 0.5 0.4 Monocytes % 10.3 9.0 Neutrophils # 3.1 2.5 Neutrophils % 63.8 58.4 Nucleated Red Blood Cells # 0.0 0.0 Nucleated Red Blood Cells % 0.0 0.0 Platelet Count 311 242 # Potassium Level 3.8 3.6 Prothrombin Time 13.7 Prothrombin Time Ratio 1.1 Red Blood Count 4.25 3.47 L Red Cell Distribution Width 15.5 H 15.3 H Sodium Level 147 H 144 Total Bilirubin 0.7 Total Protein 8.5 H Troponin I < 0.012 White Blood Count 4.9 4.3 L Cholesterol Level 195 Cholesterol/HDL Ratio 3.6 HDL Cholesterol 53 LDL Cholesterol, Calculated 125 Magnesium Level 2.1 Triglycerides Level 85 Medications Medications Current Medications Lorazepam (Ativan) 0.5 mg Q6H PRN IV ANXIETY; Start 05/04/16 at 17:30 Ondansetron HCl (Zofran Inj) 4 mg Q6H PRN IV NAUSEA AND/OR VOMITING; Start 05/04 at 17:30 Aspirin (Aspirin) 81 mg DAILY PO Last administered on 05/05/16 09:35; Admin Dose 81 MG; Start 05/05/16 at 09:00 Nitroglycerin (Nitroglycerin (Sl Tab) 0.4 Mg) 1 tab Q5M PRN SL CHEST PAIN; Start 05/04/16 at 17:30 Acetaminophen (Tylenol Tab) 650 mg Q6H PRN PO PAIN LEVEL 1-3 OR FEVER Last administered on 05/05/16 09:34; Admin Dose 650 MG; Start 05/04/16 at 17:30 Docusate Sodium (Colace) 100 mg Q12H PRN PO CONSTIPATION; Start 05/04/16 at 17: 30 Famotidine (Pepcid) 20 mg Q12 PO Last administered on 05/05/16 09:39; Admin Dose 20 MG; Start 05/04/16 at 21:00 Enoxaparin Sodium (Lovenox) 40 mg DAILY SC Last administered on 05/05/16 09:46 ; Admin Dose 40 MG; Start 05/05/16 at 09:00 Amlodipine Besylate (Norvasc) 5 mg DAILY PO Last administered on 05/05/16 09:39 ; Admin Dose 5 MG; Start 05/05/16 at 09:00 Clopidogrel Bisulfate (plaVIX) 75 mg DAILY PO Last administered on 05/05/16 09: 36; Admin Dose 75 MG; Start 05/05/16 at 09:00 Donepezil HCl (Aricept) 5 mg DAILY PO Last administered on 05/05/16 09:35; Admin Dose 5 MG; Start 05/05/16 at 09:00 Lisinopril (Zestril) 20 mg DAILY PO Last administered on 05/05/16 09:39; Admin Dose 20 MG; Start 05/05/16 at 09:00 Ondansetron HCl 4 mg 4 mg Q8H PRN PO NAUSEA AND/OR VOMITING; Start 05/04/16 at 17:30 Levetiracetam/ Sodium Chloride (Keppra Iv/NS) 105 ml @ 420 mls/hr Q12 IVPB Last administered on 05/05/16 11:35; Admin Dose 420 MLS/HR; Start 05/04/16 at 21: 00 Atorvastatin Calcium (Lipitor) 10 mg DAILY@21 PO Last administered on 05/04/16 20:24; Admin Dose 10 MG; Start 05/04/16 at 21:00 RASHAD COLE MD May 05, 2016 11:49
--- NOTE | 2016-05-05 15:08 | PN ---
Date/Time of Note Date/Time of Note DATE: 05/05/16 TIME: 15:05 Assessment/Plan VTE Prophylaxis VTE Prophylaxis Intervention: LMWH Lines/Catheters Urinary Cath still in place: No Assessment/Plan Chief Complaint/Hosp Course ASSESSMENT AND PLAN: 1. Acute on chronic cerebrovascular accident. Will obtain MRI of the brain. Continue aspirin, Plavix and statin. Neurology has been consulted. We will follow their recommendation. Obtain 2D echocardiogram with bubble study 2. Seizure activity is likely secondary to noncompliance with medication. Continue Keppra. Neurology has been consulted, follow EEG 4. Dyslipidemia. Continue statin. 5. Essential hypertension, well controlled on medical management. 6. History of noncompliance with medication. Education was provided regarding the importance of being compliant with medication and not being compliant with medication may lead to worsening of her condition and cerebrovascular accident and myocardial infarction. 7. Debility. PT, OT evaluate and treat. 8. Dementia. Continue Aricept. 9. For deep venous thrombosis prophylaxis, on Lovenox. 10. For gastrointestinal prophylaxis, on Pepcid. We will continue to monitor patient closely. Further recommendations, management and treatment as per clinical course. Problems: Subjective 24 Hr Interval Summary Free Text/Dictation Patient denies any headache or dizziness Improvement in left upper extremity weakness No nausea vomiting diarrhea Tolerating oral intake Exam/Review of Systems Vital Signs Vitals Vital Signs Date Time Temp Pulse Resp B/P Pulse Ox O2 Delivery O2 Flow Rate FiO2 05/05/16 12:25 89 05/05/16 11:34 98.3 18 131/80 96 05/05/16 04:00 Room Air 05/04/16 14:51 2.0 Exam General: The patient is well-developed, Not in acute distress. HEENT: Atraumatic, normocephalic. The pupils are equal and round . Neck: Supple with full range of motion. Chest: Normal expansion of the thorax during inspiration Lungs: Clear to auscultation bilaterally Heart: Normal S1-S2, Regular rhythm and rate. Abdomen: Soft , nontender, nondistended , bowel sounds are present. Extremities: 4/5 strength left upper and lower extremity, no edema no cyanosis Neurologic: Normal mental status,The patient is awake, alert and oriented . Results Result Diagram: 05/05/16 0635 05/05/16 0635 Results 24 hrs Laboratory Tests Test 05/05/16 06:35 Anion Gap 15 Basophils # 0.0 Basophils % 0.5 Blood Morphology Comment Blood Urea Nitrogen 8 Calcium Level 10.2 Carbon Dioxide Level 25 Chloride Level 108 Cholesterol Level 195 Cholesterol/HDL Ratio 3.6 Creatinine 0.76 Eosinophils # 0.0 Eosinophils % 1.0 Glucose Level 59 #L HDL Cholesterol 53 Hematocrit 31.2 L Hemoglobin 10.5 L LDL Cholesterol, Calculated 125 Lymphocytes # 1.3 Lymphocytes % 31.1 Magnesium Level 2.1 Mean Corpuscular Hemoglobin 30.2 Mean Corpuscular Hemoglobin Concent 33.6 Mean Corpuscular Volume 89.8 Mean Platelet Volume 8.6 Monocytes # 0.4 Monocytes % 9.0 Neutrophils # 2.5 Neutrophils % 58.4 Nucleated Red Blood Cells # 0.0 Nucleated Red Blood Cells % 0.0 Platelet Count 242 # Potassium Level 3.6 Red Blood Count 3.47 L Red Cell Distribution Width 15.3 H Sodium Level 144 Triglycerides Level 85 White Blood Count 4.3 L Medications Medications Current Medications Lorazepam (Ativan) 0.5 mg Q6H PRN IV ANXIETY; Start 05/04/16 at 17:30 Ondansetron HCl (Zofran Inj) 4 mg Q6H PRN IV NAUSEA AND/OR VOMITING; Start 05/04 at 17:30 Aspirin (Aspirin) 81 mg DAILY PO Last administered on 05/05/16 09:35; Admin Dose 81 MG; Start 05/05/16 at 09:00 Nitroglycerin (Nitroglycerin (Sl Tab) 0.4 Mg) 1 tab Q5M PRN SL CHEST PAIN; Start 05/04/16 at 17:30 Acetaminophen (Tylenol Tab) 650 mg Q6H PRN PO PAIN LEVEL 1-3 OR FEVER Last administered on 05/05/16 09:34; Admin Dose 650 MG; Start 05/04/16 at 17:30 Docusate Sodium (Colace) 100 mg Q12H PRN PO CONSTIPATION; Start 05/04/16 at 17: 30 Famotidine (Pepcid) 20 mg Q12 PO Last administered on 05/05/16 09:39; Admin Dose 20 MG; Start 05/04/16 at 21:00 Enoxaparin Sodium (Lovenox) 40 mg DAILY SC Last administered on 05/05/16 09:46 ; Admin Dose 40 MG; Start 05/05/16 at 09:00 Amlodipine Besylate (Norvasc) 5 mg DAILY PO Last administered on 05/05/16 09:39 ; Admin Dose 5 MG; Start 05/05/16 at 09:00 Clopidogrel Bisulfate (plaVIX) 75 mg DAILY PO Last administered on 05/05/16 09: 36; Admin Dose 75 MG; Start 05/05/16 at 09:00 Donepezil HCl (Aricept) 5 mg DAILY PO Last administered on 05/05/16 09:35; Admin Dose 5 MG; Start 05/05/16 at 09:00 Lisinopril (Zestril) 20 mg DAILY PO Last administered on 05/05/16 09:39; Admin Dose 20 MG; Start 05/05/16 at 09:00 Ondansetron HCl (Zofran Tab) 4 mg Q8H PRN PO NAUSEA AND/OR VOMITING; Start 05/04 at 17:30 Atorvastatin Calcium (Lipitor) 40 mg DAILY@21 PO ; Start 05/05/16 at 21:00 DIONTE GONSALEZ MD May 05, 2016 15:08
[2016-05-05] MEDS: ATORVASTATIN 40 MG TAB PO SCH (20:57)
[2016-05-05] MEDS: LEVETIRACETAM 500 MG TAB PO SCH (20:57)
[2016-05-06] VITALS (13 sets, daily range): BP systolic 119–139; BP diastolic 67–85; PULSE 50–72; RESP 18–20
--- NOTE | 2016-05-06 00:57 | RADRPT ---
PROCEDURE: MRI Brain without contrast. CLINICAL INDICATION: Neurologic deficit. Acute upon chronic middle cerebral artery distribution in farct. TECHNIQUE: MRI of the brain was performed with the following sequences obtained: Sagittal, coronal and axial T1-weighted, axial T2-weighted, axial FLAIR, axial diffusion weighted (with ADC map), and coronal GRE. COMPARISON: CT head 05/04/2016 FINDINGS: Subtle punctate area of restricted diffusion with associated hyperintense FLAIR signal is seen withi n the right periatrial white matter of the posterior temporal lobe consistent with a subacute ischem ic lacunar type infarct of 4 mm. No additional areas of acute ischemic infarct are identified. A l arge area of encephalomalacia and gliosis involving the right frontal and parietal lobe is consisten t with an old right middle cerebral artery distribution infarct. Extensive hyperintense FLAIR signa l involving the right greater than left subcortical and periventricular white matter is likely relat ed to chronic small vessel ischemia. Areas of scattered chronic lacunar infarcts in the centrum alexus i of bowel are seen bilaterally. There are small chronic appearing lacunar infarcts within the lent iform and thalamic nuclei bilaterally greater on the right. There are some areas of low signal inte nsity on the gradient echo sequence within the cortex of the right parietal lobe consistent with hemosiderin staining. There is some hemosiderin in the body of the right lateral ventricle. No acu te hemorrhage, mass effect or mass lesion is present. The extraaxial spaces are clear of collection s. Prominence of the ventricular system and sulci is consistent with generalized atrophy advance fo r the patient's provided age of 65 years. Hyperintense T2 signal within the rené is nonspecific likely chronic small vessel ischemic disease. There is no acute posterior fossa infarct or mass effect the fourth ventricle is midline. The cere bellum is unremarkable. The craniocervical junction lesion is intact. The area of the sella is nor mal. The bony calvarium and skull base are intact. The visualized paranasal sinuses and mastoid air cell s are clear. Physiologic flow voids within the internal carotid and vertebral arteries are maintain ed. RPTAT:HJJR IMPRESSION: 1. Subtle punctate area of restricted diffusion and FLAIR signal within the right periatrial white m atter consistent with a subacute lacunar type ischemic infarct superimposed upon a large area of enc ephalomalacia and gliosis from an old right middle cerebral artery distribution infarct. No evidence of hemorrhage, mass lesion or mass effect. 2. Multiple areas of chronic lacunar infarct in the basal ganglia and centrum semiovale with subtle cortical hemosiderin deposition of the right parietal lobe and along the surface of the right later al ventricle. 3. Generalized advanced atrophy for the patient's age with extensive chronic small vessel ischemic cerebral and pontine white matter disease. Jcarlos Morales Physician Date Time Electronically viewed and signed by Jcarlos Morales Physician on 05/06/2016 00:56 JR/
--- NOTE | 2016-05-06 00:59 | RADRPT ---
PROCEDURE: MRA Neck without contrast. CLINICAL INDICATION: Symptoms of stroke. Right middle cerebral artery infarct TECHNIQUE: An MRA of the major cervical arteries was performed on the 1.5 keanu scanner utilizing axial 2D time of flight technique. Source and MIP images were reviewed. COMPARISON: Ultrasound 02/24/2016 FINDINGS: The visualized great vessels arising off of the aortic arch appear patent and normal in caliber. Th e common carotid arteries are patent and normal in caliber bilaterally. The carotid bifurcations ar e patent and the internal carotid arteries are patent and normal in caliber bilaterally. The verteb ral arteries are patent and normal in caliber bilaterally. No evidence for dissection is seen. RPTAT:HJJR IMPRESSION: Unremarkable noncontrast MRA of the neck, findings in accordance with the ultrasound dated 6. Physician Chase Date Time Electronically viewed and signed by Physician Chase on 05/06/2016 00:59 /
--- NOTE | 2016-05-06 01:03 | RADRPT ---
PROCEDURE: MRA brain without contrast CLINICAL INDICATION: Ischemic stroke TECHNIQUE: 3-D [id number] intracranial MRA without contrast was performed on a GE [employer] Excite 3.0T scanner. Rotational MIP images were reformatted. The source images were also reviewed. COMPARISON: MRI brain 05/05/2016 and 02/25/2016 FINDINGS: Concentric areas of signal dropout are identified as the internal carotid arteries into the skull ba se bilaterally consistent with 70% degree stenosis. There is moderate atheromatous disease involvin g the trocar arteries without occlusion or significant stenosis. There is asymmetric attenuation of the more distal left middle cerebral artery branches corresponding to the chronic left middle cereb ral artery distribution infarct. There is normal signal within the M1 segment bilaterally. The rig ht nostril artery and both anterior cerebral artery branches are normal. The posterior circulation is unremarkable. There is no evidence of aneurysm or vascular malformation. RPTAT:HJJR IMPRESSION: 1. Asymmetric attenuation of the distal left middle cerebral artery branches correspond to the left middle cerebral artery infarct on the MRI of brain, the M1 segment of the middle cerebral artery how ever is normal. 2. Significant stenoses of the internal carotid arteries at the skull base. Physician Chase Date Time Electronically viewed and signed by Physician Chase on 05/06/2016 01:03 /
[2016-05-06] MEDS: FAMOTIDINE 20 MG TAB PO SCH ×2 (09:03→20:41)
[2016-05-06] MEDS: LEVETIRACETAM 500 MG TAB PO SCH ×2 (09:04→20:41)
[2016-05-06] MEDS: CLOPIDOGREL 75 MG TAB PO SCH (09:04)
[2016-05-06] MEDS: ASPIRIN 81 MG TAB PO SCH (09:04)
[2016-05-06] MEDS: DONEPEZIL 5 MG TAB PO SCH (09:04)
[2016-05-06] MEDS: AMLODIPINE 5 MG TAB PO SCH (09:05)
[2016-05-06] MEDS: LISINOPRIL 20 MG TAB PO SCH (09:05)
[2016-05-06] MEDS: ENOXAPARIN 40 MG/0.4 ML SYG SC SCH (09:07)
[2016-05-06 09:51] LABS: BASOPHILS % 0.4 % (0.0-2.0); EOSINOPHILS % 0.9 % (0.0-7.0); HEMATOCRIT 32.9 % (37.0-47.0); LYMPHOCYTES # 1.1 10^3/ul (0.8-2.9); MEAN CORPUSCULAR HEMOGLOBIN 29.9 pg (29.0-33.0); MEAN CORPUSCULAR HGB CONC 33.5 g/dl (32.0-37.0); MEAN CORPUSCULAR VOLUME 89.3 fl (82.0-101.0); MEAN PLATELET VOLUME 8.3 fl (7.4-10.4); MONOCYTE # 0.4 10^3/ul (0.3-0.9); MONOCYTES % 9.9 % (0.0-11.0); NEUTROPHIL # 2.2 10^3/ul (1.6-7.5); NEUTROPHILS % 58.8 % (39.0-77.0); PLATELET COUNT 253 10^3/UL (140-440); RED BLOOD COUNT 3.68 10^6/ul (4.20-5.40); RED CELL DISTRIBUTION WIDTH 15.2 % (11.5-14.5); UNCORRECTED WBC 3.8 10^3/ul (4.8-10.8); WHITE BLOOD COUNT 3.8 10^3/ul (4.8-10.8)
[2016-05-06 09:55] LABS: POTASSIUM 3.9 mmol/L (3.5-5.1)
[2016-05-06 09:58] LABS: CREATININE 0.78 mg/dl (0.44-1.00)
[2016-05-06 09:59] LABS: CALCIUM 10.6 mg/dl (8.4-10.2); CONDITION 1; LH ANALYZER COMMENTS 1
--- NOTE | 2016-05-06 12:11 | CONS ---
Date/Time of Note Date/Time of Note DATE: 05/06/16 TIME: 11:53 Consult Date/Type/Reason Admit Date/Time May 04, 2016 at 22:32 Initial Consult Date 05/05/16 Type of Consultation: Neurology Reason for Consultation eval for seizures, new Right MCA strokes Ordering Provider: DIONTE GONSALEZ MD Subjective left arm weakness and leg weakness significantly improved back to baseline strength per patient no seizures, has persistent choreiform movements left arm Objective Vital Signs Date Time Temp Pulse Resp B/P Pulse Ox O2 Delivery O2 Flow Rate FiO2 05/06/16 11:47 98.1 57 18 136/77 100 05/05/16 04:00 Room Air 05/04/16 14:51 2.0 Intake and Output 05/05/16 05/05/16 05/06/16 14:59 22:59 06:59 Intake Total 105 ml 700 ml 200 ml Balance 105 ml 700 ml 200 ml awake and alert oriented x3 paucity in speech following all command no neglect CN: GUCCI, blinks to threat appropriately, left NLF flattening palate upgoing uvula midline scm/trap intact tongue midline Motor: shrugs shoulders equally, right arm and leg 5/5 left arm and leg now 5/5 strength significantly improved from previous exam Tremor in left arm consistent with choreiform movements Sensory decreased to left arm and leg Coordination Left arm tremor and ataxia with choreiform movements Results/Medications Result Diagram: 05/06/1620 05/06/16 0920 Results 24 hrs Laboratory Tests Test 05/06/16 09:20 Anion Gap 14 Basophils # 0.0 Basophils % 0.4 Blood Morphology Comment Blood Urea Nitrogen 8 Calcium Level 10.6 H Carbon Dioxide Level 29 Chloride Level 106 Creatinine 0.78 Eosinophils # 0.0 Eosinophils % 0.9 Glucose Level 97 Hematocrit 32.9 L Hemoglobin 11.0 L Lymphocytes # 1.1 Lymphocytes % 30.0 Mean Corpuscular Hemoglobin 29.9 Mean Corpuscular Hemoglobin Concent 33.5 Mean Corpuscular Volume 89.3 Mean Platelet Volume 8.3 Monocytes # 0.4 Monocytes % 9.9 Neutrophils # 2.2 Neutrophils % 58.8 Nucleated Red Blood Cells # 0.0 Nucleated Red Blood Cells % 0.0 Platelet Count 253 Potassium Level 3.9 Red Blood Count 3.68 L Red Cell Distribution Width 15.2 H Sodium Level 145 H White Blood Count 3.8 L Medications Current Medications Lorazepam (Ativan) 0.5 mg Q6H PRN IV ANXIETY; Start 05/04/16 at 17:30 Ondansetron HCl (Zofran Inj) 4 mg Q6H PRN IV NAUSEA AND/OR VOMITING; Start 05/04 at 17:30 Aspirin (Aspirin) 81 mg DAILY PO Last administered on 05/06/16 09:04; Admin Dose 81 MG; Start 05/05/16 at 09:00 Nitroglycerin (Nitroglycerin (Sl Tab) 0.4 Mg) 1 tab Q5M PRN SL CHEST PAIN; Start 05/04/16 at 17:30 Acetaminophen (Tylenol Tab) 650 mg Q6H PRN PO PAIN LEVEL 1-3 OR FEVER Last administered on 05/05/16 09:34; Admin Dose 650 MG; Start 05/04/16 at 17:30 Docusate Sodium (Colace) 100 mg Q12H PRN PO CONSTIPATION; Start 05/04/16 at 17: 30 Famotidine (Pepcid) 20 mg Q12 PO Last administered on 05/06/16 09:03; Admin Dose 20 MG; Start 05/04/16 at 21:00 Enoxaparin Sodium (Lovenox) 40 mg DAILY SC Last administered on 05/06/16 09:07 ; Admin Dose 40 MG; Start 05/05/16 at 09:00 Amlodipine Besylate (Norvasc) 5 mg DAILY PO Last administered on 05/06/16 09:05 ; Admin Dose 5 MG; Start 05/05/16 at 09:00 Clopidogrel Bisulfate (plaVIX) 75 mg DAILY PO Last administered on 05/06/16 09: 04; Admin Dose 75 MG; Start 05/05/16 at 09:00 Donepezil HCl (Aricept) 5 mg DAILY PO Last administered on 05/06/16 09:04; Admin Dose 5 MG; Start 05/05/16 at 09:00 Lisinopril (Zestril) 20 mg DAILY PO Last administered on 05/06/16 09:05; Admin Dose 20 MG; Start 05/05/16 at 09:00 Ondansetron HCl (Zofran Tab) 4 mg Q8H PRN PO NAUSEA AND/OR VOMITING; Start 05/04 at 17:30 Atorvastatin Calcium (Lipitor) 40 mg DAILY@21 PO Last administered on 05/05/16 20:57; Admin Dose 40 MG; Start 05/05/16 at 21:00 Levetiracetam (Keppra) 500 mg BID PO Last administered on 05/06/16 09:04; Admin Dose 500 MG; Start 05/05/16 at 21:00 Assessment/Plan Chief Complaint/Hosp Course 65 year old female with previous cryptogenic Right MCA distribution stroke now with extension acute on chronic infarcts, 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 MRI Brain shows small area of restricted diffusion right periatrial white matter , subacute lacunar infarct, encephalomalacia Right MCA territory from previous infarct, no hemorrhage. MRA Head decreased attenuation Right MCA distal branches no occlusion. Plan: -Routine EEG follow up pending official read -Keppra discontinued for now, unclear if she ever had seizures, movements in left arm consistent with hemiballismus from previous stroke -continue ASA and Plavix -increased Lipitor to 40 mg qhs -check HBA1C to optimize secondary risk factors for stroke -advised importance of medical compliance with patient -PT/OT/Speech follow up -dc planning Problems: RASHAD COLE MD May 06, 2016 12:03
--- NOTE | 2016-05-06 13:14 | PN ---
Date/Time of Note Date/Time of Note DATE: 05/06/16 TIME: 13:08 Assessment/Plan VTE Prophylaxis VTE Prophylaxis Intervention: LMWH Lines/Catheters Urinary Cath still in place: No Assessment/Plan Assessment/Plan 1. Subacute CVA 2. Acute on chronic cerebrovascular accident. MRI showed subacute CVA, neurolgoy following 3. Seizure activity is likely secondary to noncompliance with medication. Patient was started on Keppra. 4. Dyslipidemia. Continue statin. 5. Essential hypertension, well controlled on medical management. 6. History of noncompliance with medication. Education was provided regarding the importance of being compliant with medication and not being compliant with medication may lead to worsening of her condition and cerebrovascular accident and myocardial infarction. 7. Debility. PT, OT evaluate and treat. 8. Dementia. Continue Aricept. 9. For deep venous thrombosis prophylaxis, on Lovenox. 10. For gastrointestinal prophylaxis, on Pepcid. 11. We will continue to monitor patient closely. Further recommendations, management and treatment as per clinical course. Subjective 24 Hr Interval Summary Free Text/Dictation pt stable, back to normal, MRI showed subacute CVA Exam/Review of Systems Vital Signs Vitals Vital Signs Date Time Temp Pulse Resp B/P Pulse Ox O2 Delivery O2 Flow Rate FiO2 05/06/16 12:07 60 05/06/16 11:47 98.1 18 136/77 100 05/05/16 04:00 Room Air 05/04/16 14:51 2.0 Intake and Output 05/05/16 05/05/16 05/06/16 15:00 23:00 07:00 Intake Total 105 ml 700 ml 200 ml Balance 105 ml 700 ml 200 ml Exam GENERAL APPEARANCE: Patient is very cachectic and underweight. RESPIRATORY: Effort is normal. Clear to auscultate bilaterally. CARDIOVASCULAR: Normal S1, S2. Regular rhythm and rate. No murmur, no bruits , no edema. Peripheral pulses, radial pulses palpable. Cap refill is normal. CHEST: Normal expansion of thorax during inspiration. GASTROINTESTINAL: Abdomen is soft, nontender, not distended. Bowel sounds present. No guarding, no rebound. GENITOURINARY: Deferred. MUSCULOSKELETAL: Upper and lower extremities within normal limits. Full range of motion, strength 5/5. MUSCULOSKELETAL: Upper extremities within normal limits. Strength is 3/5 both left upper and lower extremity, although this is chronic. Patient does have a history of left upper and lower extremity weakness. NEUROLOGIC: Cranial II through XII seem grossly intact. Results Result Diagram: 05/06/1620 05/06/16 0920 Results 24 hrs Laboratory Tests Test 05/06/16 09:20 Anion Gap 14 Basophils # 0.0 Basophils % 0.4 Blood Morphology Comment Blood Urea Nitrogen 8 Calcium Level 10.6 H Carbon Dioxide Level 29 Chloride Level 106 Creatinine 0.78 Eosinophils # 0.0 Eosinophils % 0.9 Glucose Level 97 Hematocrit 32.9 L Hemoglobin 11.0 L Lymphocytes # 1.1 Lymphocytes % 30.0 Mean Corpuscular Hemoglobin 29.9 Mean Corpuscular Hemoglobin Concent 33.5 Mean Corpuscular Volume 89.3 Mean Platelet Volume 8.3 Monocytes # 0.4 Monocytes % 9.9 Neutrophils # 2.2 Neutrophils % 58.8 Nucleated Red Blood Cells # 0.0 Nucleated Red Blood Cells % 0.0 Platelet Count 253 Potassium Level 3.9 Red Blood Count 3.68 L Red Cell Distribution Width 15.2 H Sodium Level 145 H White Blood Count 3.8 L Medications Medications Current Medications Lorazepam (Ativan) 0.5 mg Q6H PRN IV ANXIETY; Start 05/04/16 at 17:30 Ondansetron HCl (Zofran Inj) 4 mg Q6H PRN IV NAUSEA AND/OR VOMITING; Start 05/04 at 17:30 Aspirin (Aspirin) 81 mg DAILY PO Last administered on 05/06/16 09:04; Admin Dose 81 MG; Start 05/05/16 at 09:00 Nitroglycerin (Nitroglycerin (Sl Tab) 0.4 Mg) 1 tab Q5M PRN SL CHEST PAIN; Start 05/04/16 at 17:30 Acetaminophen (Tylenol Tab) 650 mg Q6H PRN PO PAIN LEVEL 1-3 OR FEVER Last administered on 05/05/16 09:34; Admin Dose 650 MG; Start 05/04/16 at 17:30 Docusate Sodium (Colace) 100 mg Q12H PRN PO CONSTIPATION; Start 05/04/16 at 17: 30 Famotidine (Pepcid) 20 mg Q12 PO Last administered on 05/06/16 09:03; Admin Dose 20 MG; Start 05/04/16 at 21:00 Enoxaparin Sodium (Lovenox) 40 mg DAILY SC Last administered on 05/06/16 09:07 ; Admin Dose 40 MG; Start 05/05/16 at 09:00 Amlodipine Besylate (Norvasc) 5 mg DAILY PO Last administered on 05/06/16 09:05 ; Admin Dose 5 MG; Start 05/05/16 at 09:00 Clopidogrel Bisulfate (plaVIX) 75 mg DAILY PO Last administered on 05/06/16 09: 04; Admin Dose 75 MG; Start 05/05/16 at 09:00 Donepezil HCl (Aricept) 5 mg DAILY PO Last administered on 05/06/16 09:04; Admin Dose 5 MG; Start 05/05/16 at 09:00 Lisinopril (Zestril) 20 mg DAILY PO Last administered on 05/06/16 09:05; Admin Dose 20 MG; Start 05/05/16 at 09:00 Ondansetron HCl (Zofran Tab) 4 mg Q8H PRN PO NAUSEA AND/OR VOMITING; Start 05/04 at 17:30 Atorvastatin Calcium (Lipitor) 40 mg DAILY@21 PO Last administered on 05/05/16 20:57; Admin Dose 40 MG; Start 05/05/16 at 21:00 Levetiracetam (Keppra) 500 mg BID PO Last administered on 05/06/16 09:04; Admin Dose 500 MG; Start 05/05/16 at 21:00 MEY DEL RIO MD May 06, 2016 13:14
--- NOTE | 2016-05-06 15:20 | CONS ---
DATE OF ADMISSION: 05/04/2016 DATE OF CONSULTATION: 05/06/2016 REASON FOR CONSULTATION: Recurrent cerebrovascular accident, assess for intracardiac source. REQUESTING PHYSICIAN: Dr. Mey Mead, hospitalist service HISTORY OF PRESENT ILLNESS: Ms. Li is a very pleasant 65-year-old female with a history of prior CVA, seizure disorder, and hypertension who presented with left lower extremity tremor and seizure a ctivity. The patient underwent a brain MRI that reveals subtle punctate area of restricted diffusio n to the right parietal white matter consistent with a subacute lacunar type ischemic infarct superi mposed upon a large area of encephalomalacia and gliosis from an old right middle cerebral artery di stribution infarct, and there are additionally multiple areas of chronic lacunar infarct and general ly advanced atrophy for the patient's age. The patient's labs are notable for an LDL of 125, HDL 53 , ongoing mild hypernatremia. Normal creatinine. Mild anemia with hemoglobin of 11, white blood ce ll count 3.8. At this time, the patient denies chest pain or shortness of breath. PAST MEDICAL HISTORY: As above in HPI. MEDICATIONS CURRENTLY IN HOSPITAL: 1. Lipitor 40 mg at bedtime. 2. Keppra 500 mg b.i.d. 3. Aspirin 81 mg daily. 4. Lovenox 40 mg subcu daily. 5. Norvasc 5 mg daily. 6. Plavix 75 mg daily. 7. Aricept 5 mg daily. 8. Zestril 20 mg daily. 9. Pepcid 20 mg q. 12. 10. Sublingual nitroglycerine p.r.n. 11. Colace p.r.n. 12. Zofran p.r.n. ALLERGIES: CODEINE. SOCIAL HISTORY: No tobacco, ETOH, or illicit drug use. FAMILY HISTORY: No history of sudden cardiac or early CAD. REVIEW OF SYSTEMS: As above in HPI. CONSTITUTIONAL: No fevers, chills. PULMONARY: No current shortness of breath. CARDIOVASCULAR: No current chest pain. GASTROINTESTINAL: No vomiting. GENITOURINARY: No hematuria. MUSCULOSKELETAL: Degenerative joint disease. PSYCHIATRIC: The patient denies depression. NEUROLOGIC: History of recurrent cerebrovascular accident. PHYSICAL EXAMINATION: VITAL SIGNS: Temperature 98.1, blood pressure 136/77, pulse 67, respiratory rate 18, saturating 100 %. GENERAL: The patient is alert, awake, in no acute distress. NECK: JVP approximately 8 cm water. CHEST: Fair air movement throughout. HEART: Bradycardic, regular rhythm, normal S1, S2, I/ systolic murmur. ABDOMEN: Positive bowel sounds, soft. EXTREMITIES: No pitting edema, 1+ pulses bilaterally, posterior tibial. LABORATORY DATA: As above in the HPI with most recently white count 3.8, hemoglobin 11.0, platelet count of 253. Sodium 145, potassium 3.9, creatinine of 1.78, BUN 18, LDL 125, HDL 53. INR 1.0. IMAGING STUDIES: As above in HPI with additionally the patient having a chest x-ray on admit on 08/2016 showing atherosclerotic aortic arch but no evidence of acute cardiopulmonary abnormalities. ECG: No electrocardiogram in the chart for my review at this time. Telemetry monitoring reveals si nus rhythm, sinus jocelyn with frequent PVCs. IMPRESSION: 1. Recurrent cerebrovascular accident, assess for cardiac source. 2. Hypertension under reasonable control. 3. Dyslipidemia. 4. Seizure disorder. 5. Anemia. 6. Hypernatremia. 7. Dyslipidemia. 8. Dementia. RECOMMENDATIONS: 1. At this time, we would maintain the patient on telemetry monitoring to rule out any possible rhy thm causes to the patient's recurrent CVAs 2. Continue the patient's current aspirin and Plavix at this time for prevention of further cerebro vascular events. 3. Continue the patient's current statin therapy. 4. Continue the patient's current Zestril for control of blood pressure. 5. We will additionally continue the patient's Keppra to prevent recurrent seizure activity with p. r.n. Ativan as necessary. 6. We will order a transthoracic echo with bubble study to assess for possible intracardiac sources of emboli to cause the patient's recurrent CVAs. If unrevealing, we will consider transesophageal echo. Thank you for allowing me to take part in the care of this patient. I will continue to follow along very closely with you. Further recommendations will be made as the patient progresses through her inpatient hospital clinical course. Dictated By: MARTIN JESUS/NTS Conf#: [id number] DID#: [id number] CC: MEY MEAD MD;*EndCC*
--- NOTE | 2016-05-06 15:36 | SP ---
DATE OF PROCEDURE: 05/05/2016 HISTORY: The patient is a 65-year-old woman with history of previous right hemispheric stroke with tremors of the right arm. EEG is to rule out seizure activity. CURRENT MEDICATIONS: 1. Lorazepam p.r.n. 2. Aspirin. 3. Famotidine. 4. Amlodipine. 5. Clopidogrel. 6. Donepezil. 7. Lisinopril. PROCEDURE: Utilizing a 16-channel EEG machine, cap scalp electrodes were applied in accordance with International 10/20 system. [id number] and [id number] montages were displayed. Electrical i mpedances were measured and reported. DESCRIPTION: During the resting state, a posterior dominant rhythm of about 8 to 9 Hz were seen bih emispherically. Photic stimulation or hyperventilation was not performed. Blink artifact was noted at times during the tracing. There was no focal lateralizing or epileptiform discharge identified. INTERPRETATION: This is a normal EEG. A normal EEG does not exclude seizure disorder. Please niru elate clinically. Dictated By: CASSIDY GEORGES/RIGO Conf#: [id number] DID#: [id number]
--- NOTE | 2016-05-06 15:39 | RADRPT ---
Echocardiogram Report Patient Name: LOS SIMONS Gender: Female Date: 1950 Study Date: 06-May-2016 Driller Multiple Spindle: Carole Martínez RUST Location: 55 Ref. Physician: DIONTE GONSALEZ Quality: Good Procedures: Transthoracic echocardiogram examination. Indications: Other. 2D/M Mode Doppler Measurement Value Normal Range Measurement Value Normal Range TR Peak Markell 2.1 m/sec TR Peak PG 17.5 mmHg Findings Left Ventricle: Normal left ventricular cavity size, wall thickness and systolic function. The left ventricular ejection fraction is visually estimated at 55 %. Atrial Septum: Agitated saline was injected intravenously for microbubble contrast study. Agitated saline was injected intravenously for microbubble contrast study. No right to left shunt was identified with valsalva maneuver. Mitral Valve: Normal appearance and function of the mitral valve with trace physiologic regurgitation. Tricuspid Valve: Normal appearance of the tricuspid valve. There is trivial tricuspid regurgitation. Conclusions 1.Normal left ventricular cavity size, wall thickness and systolic function. The left ventricular ejection fraction is visually estimated at 55 %. 2.Agitated saline was injected intravenously for microbubble contrast study. Agitated saline was injected intravenously for microbubble contrast study. No right to left shunt was identified with valsalva maneuver. Electronically Signed By: Beto Gutierres 06-May-2016 15:39:31 -0800 Patient Name: LOS SIMONS Study Date: 06-May-2016 [id number]
[2016-05-06] MEDS: ATORVASTATIN 40 MG TAB PO SCH (20:41)
[2016-05-06] MEDS: LORAZEPAM 2 MG INJ IV PRN (23:31)
[2016-05-07] VITALS (13 sets, daily range): BP systolic 108–159; BP diastolic 57–79; PULSE 53–75; RESP 18–20
[2016-05-07 07:41] LABS: BASOPHILS % 0.4 % (0.0-2.0); EOSINOPHILS # 0.1 10^3/ul (0.0-0.5); EOSINOPHILS % 2.7 % (0.0-7.0); HEMATOCRIT 33.2 % (37.0-47.0); HEMOGLOBIN 11.2 g/dl (12.0-16.0); LYMPHOCYTES % 32.1 % (15.0-51.0); MEAN CORPUSCULAR HEMOGLOBIN 30.3 pg (29.0-33.0); MEAN CORPUSCULAR HGB CONC 33.7 g/dl (32.0-37.0); MEAN PLATELET VOLUME 8.4 fl (7.4-10.4); MONOCYTE # 0.4 10^3/ul (0.3-0.9); MONOCYTES % 13.4 % (0.0-11.0); NEUTROPHIL # 1.6 10^3/ul (1.6-7.5); NEUTROPHILS % 51.4 % (39.0-77.0); PLATELET COUNT 235 10^3/UL (140-440); RED BLOOD COUNT 3.68 10^6/ul (4.20-5.40); RED CELL DISTRIBUTION WIDTH 15.4 % (11.5-14.5); UNCORRECTED WBC 3.2 10^3/ul (4.8-10.8); WHITE BLOOD COUNT 3.2 10^3/ul (4.8-10.8)
[2016-05-07 07:43] LABS: CONDITION 1; LH ANALYZER COMMENTS 1
[2016-05-07 07:50] LABS: PARTIAL THROMBOPLASTIN TIME 28.3 Sec (25.0-35.0)
[2016-05-07 08:05] LABS: POTASSIUM 3.8 mmol/L (3.5-5.1)
[2016-05-07 08:08] LABS: CREATININE 0.78 mg/dl (0.44-1.00)
[2016-05-07 08:09] LABS: CALCIUM 10.3 mg/dl (8.4-10.2)
[2016-05-07] MEDS: LEVETIRACETAM 500 MG TAB PO SCH ×2 (09:00→22:57)
[2016-05-07 09:45] LABS: INR 1.01; PROTIME 13.3 Sec (12.2-14.2)
[2016-05-07] MEDS: ENOXAPARIN 40 MG/0.4 ML SYG SC SCH (09:49)
[2016-05-07] MEDS: CLOPIDOGREL 75 MG TAB PO SCH (09:50)
[2016-05-07] MEDS: FAMOTIDINE 20 MG TAB PO SCH ×2 (09:50→22:57)
[2016-05-07] MEDS: DONEPEZIL 5 MG TAB PO SCH (09:50)
[2016-05-07] MEDS: ASPIRIN 81 MG TAB PO SCH (09:50)
[2016-05-07] MEDS: AMLODIPINE 5 MG TAB PO SCH (09:51)
[2016-05-07] MEDS: LISINOPRIL 20 MG TAB PO SCH (09:51)
--- NOTE | 2016-05-07 11:48 | RADRPT ---
Vent Rate: 57 bpm RR Interval: 0 msec CA Interval: 176 msec QRS Duration: 82 msec QT Interval: 418 msec QTC Interval: 406 msec P-R-T [place]: 67 - 60 - 94 degrees Sinus bradycardia with sinus arrhythmia Nonspecific T wave abnormality Abnormal ECG Electronically Signed By: Willian Champagne [id number]
--- NOTE | 2016-05-07 11:48 | RADRPT ---
Vent Rate: 72 bpm RR Interval: 0 msec CO Interval: 176 msec QRS Duration: 74 msec QT Interval: 382 msec QTC Interval: 418 msec P-R-T Anna: 66 - 50 - 102 degrees Normal sinus rhythm Normal ECG Electronically Signed By: Willian Champagne [id number]
--- NOTE | 2016-05-07 12:58 | PN ---
Date/Time of Note Date/Time of Note DATE: 05/07/16 TIME: 12:56 Assessment/Plan VTE Prophylaxis VTE Prophylaxis Intervention: LMWH Lines/Catheters IV [facility] Saline Lock Urinary Cath still in place: No Assessment/Plan Assessment/Plan 1. Subacute CVA 2. Acute on chronic cerebrovascular accident. MRI showed subacute CVA, neurolgoy following 3. Seizure activity is likely secondary to noncompliance with medication. Patient was started on Keppra. EEG negative, neurology has been following 4. Dyslipidemia. Continue statin. 5. Essential hypertension, well controlled on medical management. 6. History of noncompliance with medication. Education was provided regarding the importance of being compliant with medication and not being compliant with medication may lead to worsening of her condition and cerebrovascular accident and myocardial infarction. 7. Debility. PT, OT evaluate and treat. 8. Dementia. Continue Aricept. 9. For deep venous thrombosis prophylaxis, on Lovenox. 10. For gastrointestinal prophylaxis, on Pepcid. 11. We will continue to monitor patient closely. Further recommendations, management and treatment as per clinical course. PT/OT, Case management and industrial workers for D/c planning help Subjective 24 Hr Interval Summary Free Text/Dictation no seizures, no weakness, EEG negative, ECHO has been negative for shunt Exam/Review of Systems Vital Signs Vitals Vital Signs Date Time Temp Pulse Resp B/P Pulse Ox O2 Delivery O2 Flow Rate FiO2 05/07/16 12:53 98.4 89 19 129/77 100 05/05/16 04:00 Room Air 05/04/16 14:51 2.0 Intake and Output 05/06/16 05/06/16 05/07/16 15:00 23:00 07:00 Intake Total 750 ml Output Total 600 ml Balance 150 ml Exam CARDIOVASCULAR: Normal S1, S2. Regular rhythm and rate. No murmur, no bruits , no edema. Peripheral pulses, radial pulses palpable. Cap refill is normal. CHEST: Normal expansion of thorax during inspiration. GASTROINTESTINAL: Abdomen is soft, nontender, not distended. Bowel sounds present. No guarding, no rebound. MUSCULOSKELETAL: Upper extremities within normal limits. Strength is 3/5 both left upper and lower extremity, although this is chronic. Patient does have a history of left upper and lower extremity weakness. NEUROLOGIC: Cranial II through XII seem grossly intact. Results Result Diagram: 05/07/1640 05/07/1640 Results 24 hrs Laboratory Tests Test 05/07/16 06:40 Activated Partial Thromboplast Time 28.3 Anion Gap 15 Basophils # 0.0 Basophils % 0.4 Blood Morphology Comment Blood Urea Nitrogen 9 Calcium Level 10.3 H Carbon Dioxide Level 28 Chloride Level 105 Creatinine 0.78 Eosinophils # 0.1 Eosinophils % 2.7 Glucose Level 81 Hematocrit 33.2 L Hemoglobin 11.2 L INR International Normalized Ratio 1.01 Lymphocytes # 1.0 Lymphocytes % 32.1 Mean Corpuscular Hemoglobin 30.3 Mean Corpuscular Hemoglobin Concent 33.7 Mean Corpuscular Volume 90.0 Mean Platelet Volume 8.4 Monocytes # 0.4 Monocytes % 13.4 H Neutrophils # 1.6 Neutrophils % 51.4 Nucleated Red Blood Cells # 0.0 Nucleated Red Blood Cells % 0.0 Platelet Count 235 Potassium Level 3.8 Prothrombin Time 13.3 Prothrombin Time Ratio 1.0 Red Blood Count 3.68 L Red Cell Distribution Width 15.4 H Sodium Level 144 White Blood Count 3.2 L Medications Medications Current Medications Lorazepam (Ativan) 0.5 mg Q6H PRN IV ANXIETY Last administered on 05/06/16 23: 31; Admin Dose 0.5 MG; Start 05/04/16 at 17:30 Ondansetron HCl (Zofran Inj) 4 mg Q6H PRN IV NAUSEA AND/OR VOMITING; Start 05/04 at 17:30 Aspirin (Aspirin) 81 mg DAILY PO Last administered on 05/07/16 09:50; Admin Dose 81 MG; Start 05/05/16 at 09:00 Nitroglycerin (Nitroglycerin (Sl Tab) 0.4 Mg) 1 tab Q5M PRN SL CHEST PAIN; Start 05/04/16 at 17:30 Acetaminophen (Tylenol Tab) 650 mg Q6H PRN PO PAIN LEVEL 1-3 OR FEVER Last administered on 05/05/16 09:34; Admin Dose 650 MG; Start 05/04/16 at 17:30 Docusate Sodium (Colace) 100 mg Q12H PRN PO CONSTIPATION; Start 05/04/16 at 17: 30 Famotidine (Pepcid) 20 mg Q12 PO Last administered on 05/07/16 09:50; Admin Dose 20 MG; Start 05/04/16 at 21:00 Enoxaparin Sodium (Lovenox) 40 mg DAILY SC Last administered on 05/07/16 09:49 ; Admin Dose 40 MG; Start 05/05/16 at 09:00 Amlodipine Besylate (Norvasc) 5 mg DAILY PO Last administered on 05/07/16 09:51 ; Admin Dose 5 MG; Start 05/05/16 at 09:00 Clopidogrel Bisulfate (plaVIX) 75 mg DAILY PO Last administered on 05/07/16 09: 50; Admin Dose 75 MG; Start 05/05/16 at 09:00 Donepezil HCl (Aricept) 5 mg DAILY PO Last administered on 05/07/16 09:50; Admin Dose 5 MG; Start 05/05/16 at 09:00 Lisinopril (Zestril) 20 mg DAILY PO Last administered on 05/07/16 09:51; Admin Dose 20 MG; Start 05/05/16 at 09:00 Ondansetron HCl (Zofran Tab) 4 mg Q8H PRN PO NAUSEA AND/OR VOMITING; Start 05/04 at 17:30 Atorvastatin Calcium (Lipitor) 40 mg DAILY@21 PO Last administered on 05/06/16 20:41; Admin Dose 40 MG; Start 05/05/16 at 21:00 Levetiracetam (Keppra) 500 mg BID PO Last administered on 05/06/16 20:41; Admin Dose 500 MG; Start 05/05/16 at 21:00 MEY DEL RIO MD May 07, 2016 12:58
--- NOTE | 2016-05-07 13:29 | CONS ---
Date/Time of Note Date/Time of Note DATE: 05/07/16 TIME: 13:26 Assessment/Plan Assessment/Plan Chief Complaint/Hosp Course IMPRESSION: 1. Recurrent cerebrovascular accident, assess for cardiac source.-TTE with bubble study negative for PFO/ASD 2. Hypertension under reasonable control. 3. Dyslipidemia. 4. Seizure disorder. 5. Anemia. 6. Hypernatremia. 7. Dyslipidemia. 8. Dementia. Recc: -Tele to assess for any arrythmic etiologies -Continue asa/plavix -Continue lipitor -Continue norvasc/zestril -Ongoing neuro eval Problems: Consultation Date/Type/Reason Admit Date/Time May 04, 2016 at 22:32 Initial Consult Date 05/05/16 Type of Consultation: Cardiology Reason for Consultation CVA Referring Provider: DIONTE GONSALEZ MD Exam/Review of Systems Vital Signs Vitals Vital Signs Date Time Temp Pulse Resp B/P Pulse Ox O2 Delivery O2 Flow Rate FiO2 05/07/16 13:17 75 05/07/16 12:53 98.4 19 129/77 100 05/05/16 04:00 Room Air 05/04/16 14:51 2.0 Intake and Output 05/06/16 05/06/16 05/07/16 15:00 23:00 07:00 Intake Total 750 ml Output Total 600 ml Balance 150 ml Exam Review of Systems: CONSTITUTIONAL: No fevers, chills. PULMONARY: No sob CARDIOVASCULAR: No chest pain/palpitations GASTROINTESTINAL: No nausea/vomiting. GENITOURINARY: No hematuria/dysuria. MUSCULOSKELETAL: No myagias/arthalgias. PSYCHIATRIC: The patient denies depression. NEUROLOGIC: No weakness Constitutional: alert Psych: no complaints ENMT: mucosa pink and moist Neck: jvd (9 cm water), supple Respiratory: clear to auscultation Cardiovascular: regular rate and rhythm Gastrointestinal: non-tender, soft Musculoskeletal: muscle tone (normal) Extremities: edema (none) Neurological: other (No focal deficits) Results Result Diagram: 05/07/16 0640 05/07/16 0640 Results 24 hrs Laboratory Tests Test 05/07/16 06:40 Activated Partial Thromboplast Time 28.3 Anion Gap 15 Basophils # 0.0 Basophils % 0.4 Blood Morphology Comment Blood Urea Nitrogen 9 Calcium Level 10.3 H Carbon Dioxide Level 28 Chloride Level 105 Creatinine 0.78 Eosinophils # 0.1 Eosinophils % 2.7 Glucose Level 81 Hematocrit 33.2 L Hemoglobin 11.2 L INR International Normalized Ratio 1.01 Lymphocytes # 1.0 Lymphocytes % 32.1 Mean Corpuscular Hemoglobin 30.3 Mean Corpuscular Hemoglobin Concent 33.7 Mean Corpuscular Volume 90.0 Mean Platelet Volume 8.4 Monocytes # 0.4 Monocytes % 13.4 H Neutrophils # 1.6 Neutrophils % 51.4 Nucleated Red Blood Cells # 0.0 Nucleated Red Blood Cells % 0.0 Platelet Count 235 Potassium Level 3.8 Prothrombin Time 13.3 Prothrombin Time Ratio 1.0 Red Blood Count 3.68 L Red Cell Distribution Width 15.4 H Sodium Level 144 White Blood Count 3.2 L Medications Medications Current Medications Lorazepam (Ativan) 0.5 mg Q6H PRN IV ANXIETY Last administered on 05/06/16 23: 31; Admin Dose 0.5 MG; Start 05/04/16 at 17:30 Ondansetron HCl (Zofran Inj) 4 mg Q6H PRN IV NAUSEA AND/OR VOMITING; Start 05/04 at 17:30 Aspirin (Aspirin) 81 mg DAILY PO Last administered on 05/07/16 09:50; Admin Dose 81 MG; Start 05/05/16 at 09:00 Nitroglycerin (Nitroglycerin (Sl Tab) 0.4 Mg) 1 tab Q5M PRN SL CHEST PAIN; Start 05/04/16 at 17:30 Acetaminophen (Tylenol Tab) 650 mg Q6H PRN PO PAIN LEVEL 1-3 OR FEVER Last administered on 05/05/16 09:34; Admin Dose 650 MG; Start 05/04/16 at 17:30 Docusate Sodium (Colace) 100 mg Q12H PRN PO CONSTIPATION; Start 05/04/16 at 17: 30 Famotidine (Pepcid) 20 mg Q12 PO Last administered on 05/07/16 09:50; Admin Dose 20 MG; Start 05/04/16 at 21:00 Enoxaparin Sodium (Lovenox) 40 mg DAILY SC Last administered on 05/07/16 09:49 ; Admin Dose 40 MG; Start 05/05/16 at 09:00 Amlodipine Besylate (Norvasc) 5 mg DAILY PO Last administered on 05/07/16 09:51 ; Admin Dose 5 MG; Start 05/05/16 at 09:00 Clopidogrel Bisulfate (plaVIX) 75 mg DAILY PO Last administered on 05/07/16 09: 50; Admin Dose 75 MG; Start 05/05/16 at 09:00 Donepezil HCl (Aricept) 5 mg DAILY PO Last administered on 05/07/16 09:50; Admin Dose 5 MG; Start 05/05/16 at 09:00 Lisinopril (Zestril) 20 mg DAILY PO Last administered on 05/07/16 09:51; Admin Dose 20 MG; Start 05/05/16 at 09:00 Ondansetron HCl (Zofran Tab) 4 mg Q8H PRN PO NAUSEA AND/OR VOMITING; Start 05/04 at 17:30 Atorvastatin Calcium (Lipitor) 40 mg DAILY@21 PO Last administered on 05/06/16 20:41; Admin Dose 40 MG; Start 05/05/16 at 21:00 Levetiracetam (Keppra) 500 mg BID PO Last administered on 05/06/16 20:41; Admin Dose 500 MG; Start 05/05/16 at 21:00 M[employer]IN [employer] May 07, 2016 13:29
[2016-05-07] MEDS: LORAZEPAM 2 MG INJ IV PRN (14:45)
[2016-05-07] MEDS: ATORVASTATIN 40 MG TAB PO SCH (22:57)
[2016-05-08] VITALS (11 sets, daily range): BP systolic 113–134; BP diastolic 59–86; PULSE 47–73; RESP 18–20
[2016-05-08] MEDS: LORAZEPAM 2 MG INJ IV PRN ×2 (08:31→16:04)
[2016-05-08] MEDS: AMLODIPINE 5 MG TAB PO SCH (08:32)
[2016-05-08] MEDS: DONEPEZIL 5 MG TAB PO SCH (08:32)
[2016-05-08] MEDS: LEVETIRACETAM 500 MG TAB PO SCH ×3 (08:32→22:12)
[2016-05-08] MEDS: ASPIRIN 81 MG TAB PO SCH (08:32)
[2016-05-08] MEDS: LISINOPRIL 20 MG TAB PO SCH (08:32)
[2016-05-08] MEDS: ACETAMINOPHEN 325 MG TAB PO PRN (08:32)
[2016-05-08] MEDS: FAMOTIDINE 20 MG TAB PO SCH ×2 (08:32→22:11)
[2016-05-08] MEDS: CLOPIDOGREL 75 MG TAB PO SCH (08:32)
[2016-05-08] MEDS: ENOXAPARIN 40 MG/0.4 ML SYG SC SCH (08:33)
--- NOTE | 2016-05-08 12:02 | PDOCDIS ---
Discharge Instructions CONDITION Patient Condition: Good HOME CARE INSTRUCTIONS: Special Diet: LOW FAT/CHOLES 2GM NA ACTIVITY: Activity Restrictions: Slowly Increase Activity Rest between Activity Avoid heavy lifting Avoid Heavy Housework FOLLOW UP/APPOINTMENTS Appointments follow up with her own PMD in 1-2 week. Follow up [facility]-3 weeks MEY DEL RIO MD May 08, 2016 12:02
[2016-05-08] MEDS ORDERED: LEVE-5 PO (12:03)
--- NOTE | 2016-05-08 13:25 | CONS ---
Date/Time of Note Date/Time of Note DATE: 05/08/16 TIME: 13:23 Assessment/Plan Assessment/Plan Chief Complaint/Hosp Course IMPRESSION: 1. Recurrent cerebrovascular accident, assess for cardiac source.-TTE with bubble study negative for PFO/ASD 2. Hypertension under reasonable control. 3. Dyslipidemia. 4. Seizure disorder. 5. Anemia. 6. Hypernatremia. 7. Dyslipidemia. 8. Dementia. Recc: -Tele to assess for any arrythmic etiologies -Continue asa/plavix -Continue lipitor -Continue norvasc/zestril -Ongoing neuro eval Problems: Consultation Date/Type/Reason Admit Date/Time May 04, 2016 at 22:32 Initial Consult Date 05/05/16 Type of Consultation: Cardiology Reason for Consultation cva Referring Provider: DIONTE GONSALEZ MD Exam/Review of Systems Vital Signs Vitals Vital Signs Date Time Temp Pulse Resp B/P Pulse Ox O2 Delivery O2 Flow Rate FiO2 05/08/16 12:15 98.6 73 18 121/65 99 05/05/16 04:00 Room Air 05/04/16 14:51 2.0 Intake and Output 05/07/16 05/07/16 05/08/16 15:00 23:00 07:00 Intake Total 450 ml 400 ml Balance 450 ml 400 ml Exam Review of Systems: CONSTITUTIONAL: No fevers, chills. PULMONARY: No sob CARDIOVASCULAR: No chest pain/palpitations GASTROINTESTINAL: No nausea/vomiting. GENITOURINARY: No hematuria/dysuria. MUSCULOSKELETAL: No myagias/arthalgias. PSYCHIATRIC: The patient denies depression. NEUROLOGIC: confused/lethargic Constitutional: alert, oriented Psych: no complaints Head: normocephalic ENMT: mucosa pink and moist Neck: jvd (9 cm water), supple Respiratory: diminished breath sounds (at bases/B) Cardiovascular: regular rate and rhythm Gastrointestinal: non-tender, soft Musculoskeletal: muscle tone (normal) Extremities: edema (none) Neurological: other (No focal deficits) Results Result Diagram: 05/07/16 0640 05/07/16 0640 Medications Medications Current Medications Lorazepam (Ativan) 0.5 mg Q6H PRN IV ANXIETY Last administered on 05/08/16t 08: 31; Admin Dose 0.5 MG; Start 05/04/16 at 17:30 Ondansetron HCl (Zofran Inj) 4 mg Q6H PRN IV NAUSEA AND/OR VOMITING Last administered on 05/08/16 08:31; Admin Dose 4 MG; Start 05/04/16 at 17:30 Aspirin (Aspirin) 81 mg DAILY PO Last administered on 05/08/16 08:32; Admin Dose 81 MG; Start 05/05/16 at 09:00 Nitroglycerin (Nitroglycerin (Sl Tab) 0.4 Mg) 1 tab Q5M PRN SL CHEST PAIN; Start 05/04/16 at 17:30 Acetaminophen (Tylenol Tab) 650 mg Q6H PRN PO PAIN LEVEL 1-3 OR FEVER Last administered on 05/08/16 08:32; Admin Dose 650 MG; Start 05/04/16 at 17:30 Docusate Sodium (Colace) 100 mg Q12H PRN PO CONSTIPATION; Start 05/04/16 at 17: 30 Famotidine (Pepcid) 20 mg Q12 PO Last administered on 05/08/16 08:32; Admin Dose 20 MG; Start 05/04/16 at 21:00 Enoxaparin Sodium (Lovenox) 40 mg DAILY SC Last administered on 05/08/16 08:33 ; Admin Dose 40 MG; Start 05/05/16 at 09:00 Amlodipine Besylate (Norvasc) 5 mg DAILY PO Last administered on 05/08/16 08: 32; Admin Dose 5 MG; Start 05/05/16 at 09:00 Clopidogrel Bisulfate (plaVIX) 75 mg DAILY PO Last administered on 05/08/16 08 :32; Admin Dose 75 MG; Start 05/05/16 at 09:00 Donepezil HCl (Aricept) 5 mg DAILY PO Last administered on 05/08/16 08:32; Admin Dose 5 MG; Start 05/05/16 at 09:00 Lisinopril (Zestril) 20 mg DAILY PO Last administered on 05/08/16 08:32; Admin Dose 20 MG; Start 05/05/16 at 09:00 Ondansetron HCl (Zofran Tab) 4 mg Q8H PRN PO NAUSEA AND/OR VOMITING; Start 05/04 at 17:30 Atorvastatin Calcium (Lipitor) 40 mg DAILY@21 PO Last administered on 05/07/16 22:57; Admin Dose 40 MG; Start 05/05/16 at 21:00 Levetiracetam (Keppra) 500 mg BID PO Last administered on 05/07/16 22:57; Admin Dose 500 MG; Start 05/05/16 at 21:00 M[employer] May 08, 2016 13:25
[2016-05-08] MEDS: ATORVASTATIN 40 MG TAB PO SCH (22:11)
[2016-05-09] VITALS (7 sets, daily range): BP systolic 112–147; BP diastolic 73–84; PULSE 64–108; RESP 16–20
[2016-05-09] MEDS: LEVETIRACETAM 500 MG TAB PO SCH (09:57)
[2016-05-09] MEDS: DONEPEZIL 5 MG TAB PO SCH (09:58)
[2016-05-09] MEDS: ASPIRIN 81 MG TAB PO SCH (09:58)
[2016-05-09] MEDS: AMLODIPINE 5 MG TAB PO SCH (09:58)
[2016-05-09] MEDS: CLOPIDOGREL 75 MG TAB PO SCH (09:58)
[2016-05-09] MEDS: LISINOPRIL 20 MG TAB PO SCH (09:58)
[2016-05-09] MEDS: FAMOTIDINE 20 MG TAB PO SCH (09:58)
[2016-05-09] MEDS: ENOXAPARIN 40 MG/0.4 ML SYG SC SCH (10:02)
--- NOTE | 2016-05-09 11:23 | PN ---
Date/Time of Note Date/Time of Note DATE: 05/09/16 TIME: 11:22 Assessment/Plan VTE Prophylaxis VTE Prophylaxis Intervention: SCD's Lines/Catheters IV [facility] Urinary Cath still in place: No Assessment/Plan Assessment/Plan 1. Subacute CVA 2. Acute on chronic cerebrovascular accident. MRI showed subacute CVA, neurolgoy following 3. Seizure activity is likely secondary to noncompliance with medication. Patient was started on Keppra. EEG negative, neurology has been following 4. Dyslipidemia. Continue statin. 5. Essential hypertension, well controlled on medical management. 6. History of noncompliance with medication. Education was provided regarding the importance of being compliant with medication and not being compliant with medication may lead to worsening of her condition and cerebrovascular accident and myocardial infarction. 7. Debility. PT, OT evaluate and treat. 8. Dementia. Continue Aricept. 9. For deep venous thrombosis prophylaxis, on Lovenox. 10. For gastrointestinal prophylaxis, on Pepcid. 11. We will continue to monitor patient closely. Further recommendations, management and treatment as per clinical course. 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 Regular rhythm and rate. No murmur, no bruits , no edema. Peripheral pulses, radial pulses palpable. Cap refill is normal. CHEST: Normal expansion of thorax during inspiration. GASTROINTESTINAL: Abdomen is soft, nontender, not distended. Bowel sounds present. No guarding, no rebound. MUSCULOSKELETAL: Upper extremities within normal limits. Strength is 3/5 both left upper and lower extremity, although this is chronic. Patient does have a history of left upper and lower extremity weakness. NEUROLOGIC: Cranial II through XII seem grossly intact. Results Result Diagram: 05/07/1663905/07/16639 Medications Medications Current Medications Lorazepam (Ativan) 0.5 mg Q6H PRN IV ANXIETY Last administered on 05/08/16 16: 04; Admin Dose 0.5 MG; Start 05/04/16 at 17:30 Ondansetron HCl (Zofran Inj) 4 mg Q6H PRN IV NAUSEA AND/OR VOMITING Last administered on 05/08/16 08:31; Admin Dose 4 MG; Start 05/04/16 at 17:30 Aspirin (Aspirin) 81 mg DAILY PO Last administered on 05/09/16 09:58; Admin Dose 81 MG; Start 05/05/16 at 09:00 Nitroglycerin (Nitroglycerin (Sl Tab) 0.4 Mg) 1 tab Q5M PRN SL CHEST PAIN; Start 05/04/16 at 17:30 Acetaminophen (Tylenol Tab) 650 mg Q6H PRN PO PAIN LEVEL 1-3 OR FEVER Last administered on 05/08/16 08:32; Admin Dose 650 MG; Start 05/04/16 at 17:30 Docusate Sodium (Colace) 100 mg Q12H PRN PO CONSTIPATION; Start 05/04/16 at 17: 30 Famotidine (Pepcid) 20 mg Q12 PO Last administered on 05/09/16 09:58; Admin Dose 20 MG; Start 05/04/16 at 21:00 Enoxaparin Sodium (Lovenox) 40 mg DAILY SC Last administered on 05/09/16 10:02 ; Admin Dose 40 MG; Start 05/05/16 at 09:00 Amlodipine Besylate (Norvasc) 5 mg DAILY PO Last administered on 05/09/16 09: 58; Admin Dose 5 MG; Start 05/05/16 at 09:00 Clopidogrel Bisulfate (plaVIX) 75 mg DAILY PO Last administered on 05/09/16 09 :58; Admin Dose 75 MG; Start 05/05/16 at 09:00 Donepezil HCl (Aricept) 5 mg DAILY PO Last administered on 05/09/16 09:58; Admin Dose 5 MG; Start 05/05/16 at 09:00 Lisinopril (Zestril) 20 mg DAILY PO Last administered on 05/09/16 09:58; Admin Dose 20 MG; Start 05/05/16 at 09:00 Ondansetron HCl (Zofran Tab) 4 mg Q8H PRN PO NAUSEA AND/OR VOMITING; Start 05/04 at 17:30 Atorvastatin Calcium (Lipitor) 40 mg DAILY@21 PO Last administered on 22:11; Admin Dose 40 MG; Start 05/05/16 at 21:00 Levetiracetam (Keppra) 500 mg BID PO Last administered on 05/09/16 09:57; Admin Dose 500 MG; Start 05/05/16 at 21:00 MEY DEL RIO MD May 09, 2016 11:23
--- NOTE | 2016-05-10 22:41 | DS ---
DATE OF ADMISSION: 05/04/2016 DATE OF DISCHARGE: 05/09/2016 FINAL DISCHARGE DIAGNOSES: 1. Acute on chronic cerebrovascular accident. MRI showed subacute cerebrovascular accident. 2. Seizure-like activity, likely breakthrough seizures secondary to medication noncompliance. 3. History of hypertension. 4. History of dyslipidemia. 5. History of seizure disorder. 6. Dementia. 7. Chronic debility. CONSULTATIONS DONE DURING THIS HOSPITALIZATION: 1. Neurology consult, Dr. Marielena Negrete 2. Cardiology consult, Dr. Moe Wright [facility] COURSE: This is a 65-year-old female with a past medical history of hypertension, hyperlipidemia, history of seizure disorder who has been noncompliant with her seizure medications, history of previous CVA and dementia. The patient presented with seizure-like activity and right upper and right lower extremity weakness. She got admitted for acute CVA. She had a workup done including MRI, EEG and neurology evaluation. Her MRI showed a subacute CVA or she likely has acute on chronic CVA. The patient has had noncompliance with her seizure medications, and she was started on IV Keppra medication for her seizure-like activity. She was evaluated by Neurology, had a cardiology evaluation and had a 2D echo with bubble study done which was negative for any shunt. She remained hemodynamically stable. The patient had a physical therapy evaluation, and she got discharged home with prescription of Keppra. DISPOSITION: To home. DISCHARGE CONDITION: Stable, improved compared to admission. DISCHARGE ACTIVITIES: As tolerated. Slowly resume to the normal baseline activity. DISCHARGE DIET: Low-fat, low-sodium diet. DISCHARGE MEDICATIONS: As per medical reconciliation. The patient is given a prescription of Keppra 500 mg p.o. b.i.d. DISCHARGE FOLLOWUP INSTRUCTIONS: 1. The patient is to follow up with her own primary care doctor through her HMO insurance 1 to 2 weeks after discharge. 2. The patient is to follow up with Neurology and Cardiology as outpatient as needed. She has been explained about the discharge plan, followup instructions. She has a 24-hour caregiver at home. Dictated By: MEY DEL RIO MD, KP/RIGO Conf#: [id number] DID#: [id number] [facility] HOSPITALJackelin
== END 2016-05-09 12:52 | disposition home or self-care (01) | DRG 65 ==
LOC: E/R 11:06 → MS4 22:29
PROVIDERS: ADMIT Family Medicine; ATTEND Family Medicine
DX: I63.9 Cerebral infarction, unspecified (principal); E87.0 Hyperosmolality and hypernatremia; F03.90 Unspecified dementia, unspecified severity, without behavioral disturbance, psychotic disturbance, mood disturbance, and anxiety; G93.89 Other specified disorders of brain; I69.952 Hemiplegia and hemiparesis following unspecified cerebrovascular disease affecting left dominant side; R54 Age-related physical debility; G40.909 Epilepsy, unspecified, not intractable, without status epilepticus; E78.5 Hyperlipidemia, unspecified; I69.398 Other sequelae of cerebral infarction; I10 Essential (primary) hypertension; R25.1 Tremor, unspecified; Z91.19 Patient's noncompliance with other medical treatment and regimen
CPT/HCPCS: 36415; 70450; 70544; 70549; 70551; 71010; 80048; 80053; 80061; 83735; 84443; 84484; 85025; 85610; 85730; 92526; 92610; 93005; 93308; 95819; 96365; 96366; 97110; 97116; 97162; 97530; J1650; J1953; J2060; J2405; J7030; J7040

== ENCOUNTER 2016-05-15 07:43 | Emergency (ER) | payer SELFPAY ==
[~2016-05-15] VITALS: Wt 46.3 kg
[~2016-05-15 07:43] MED LIST changes: -BACTDS PO; +DONE5TAB46 PO
[2016-05-15] MEDS ORDERED: LORAZEPAM 1 MG TAB PO ONE (08:00)
[2016-05-15] MEDS ORDERED: ACETAMINOPHEN 500 MG TAB PO STA (08:01)
[2016-05-15 11:34] LABS: BASOPHILS % 0.3 % (0.0-2.0); EOSINOPHILS % 0.5 % (0.0-7.0); HEMATOCRIT 34.4 % (37.0-47.0); HEMOGLOBIN 11.5 g/dl (12.0-16.0); LYMPHOCYTES # 1.1 10^3/ul (0.8-2.9); LYMPHOCYTES % 21.6 % (15.0-51.0); MEAN CORPUSCULAR HEMOGLOBIN 30.4 pg (29.0-33.0); MEAN CORPUSCULAR HGB CONC 33.6 g/dl (32.0-37.0); MEAN CORPUSCULAR VOLUME 90.6 fl (82.0-101.0); MEAN PLATELET VOLUME 9.1 fl (7.4-10.4); MONOCYTE # 0.4 10^3/ul (0.3-0.9); MONOCYTES % 7.4 % (0.0-11.0); NEUTROPHIL # 3.5 10^3/ul (1.6-7.5); NEUTROPHILS % 70.2 % (39.0-77.0); PLATELET COUNT 247 10^3/UL (140-440); RED CELL DISTRIBUTION WIDTH 15.6 % (11.5-14.5); UNCORRECTED WBC 4.9 10^3/ul (4.8-10.8); WHITE BLOOD COUNT 4.9 10^3/ul (4.8-10.8)
[2016-05-15 11:35] LABS: ALBUMIN 4.2 g/dl (3.3-4.9); CHLORIDE 105 mmol/L (97-110)
[2016-05-15 11:36] LABS: POTASSIUM 3.4 mmol/L (3.5-5.1); SODIUM 145 mmol/L (135-144)
[2016-05-15 11:38] LABS: ALKALINE PHOSPHATASE 57 IU/L (42-121); ANION GAP 16 (8-16); ASPARTATE AMINO TRANSFERASE 27 IU/L (15-46); BILIRUBIN,INDIRECT 0.5 mg/dl (0-1.1); BILIRUBIN,TOTAL 0.5 mg/dl (0.2-1.3); CARBON DIOXIDE 27 mmol/L (21-31); CREATININE 0.78 mg/dl (0.44-1.00); TOTAL PROTEIN 7.2 g/dl (6.1-8.1)
[2016-05-15 11:38] LABS: CONDITION 1; LH ANALYZER COMMENTS 1
[2016-05-15 11:39] LABS: ALANINE AMINOTRANSFERASE 31 IU/L (13-69); BLOOD UREA NITROGEN 14 mg/dl (7-20); CALCIUM 10.7 mg/dl (8.4-10.2); GLUCOSE 82 mg/dl (70-220)
[2016-05-15 11:40] LABS: ETHANOL < 10.0 mg/dl
--- NOTE | 2016-05-15 11:52 | PSY ---
Date/Time of Note Date/Time of Note DATE: 05/15/16 TIME: 11:46 Psychiatric Subjective Eval Consent Pt consented to telemedicine: Yes Subjective Evaluation Patient location: emergency Chief Complaint: SHAKING IN HANDS AFTER SMOKING MARIJUANA AT 0600. NO N/V NO NEURO DEF History of present illness 65 yo disabled female with multiple medical problems including CVA, dementia, seizure d/o, BIB ambulance due to a seizure. Pt also expressed some paranoia and c/o she is afraid her sons are going to kill her. Apparently, her sons are her caregivers. pt says she has not been taking her meds and she has not been sleeping for 3 days. Pt is oriented to place but not to time. She states she is very depressed and has poor appetite and anxiety. She denies si/hi she denies ah/vh but is paranoid. She isd marginally cooperative with the eval tangential at times. She is able to repeat 2/3 on immediate recall, 0/3 in 5 minutes. Past psychiatric history denies Hospitalization: no Family History denies Medical history Problems Medical Problems: (1) Acute cystitis Status: Acute (2) Acute weakness Status: Acute (3) CVA (cerebral vascular accident) Status: Acute (4) Hypotension Status: Acute (5) Mild dehydration Status: Acute (6) Muscle spasm Status: Acute (7) Normocytic anemia Status: Acute (8) Stroke Status: Acute Allergies: Coded Allergies: codeine (Verified Allergy, Severe, 05/15/16) Substance Abuse Substance abuse history: Yes Prior substance abuse treatmen: No Social History Marital status: Level of education: hs DPA/Conservatorship: No Occupation/Skilled Nursing: disabled Psychiatric Objective Eval Mental Status Examination: Psychomotor Activity: Normal Behavior: Guarded Speech: Clear AFFECT: Guarded Mood: Irritable Though Process: Circumstantial Thought Content: Delusions Suicidal: No Homicidal: No On 72 hour hold: No Orientation: x2 Cognition: Alert Insight: Impared Judgement: Impared Laboratory Results Laboratory Tests Test 05/15/16 10:54 05/15/16 10:59 Alanine Aminotransferase (ALT/SGPT) 31IU/L Albumin 4.2g/dl Albumin/Globulin Ratio 1.40 Alkaline Phosphatase 57IU/L Anion Gap 16 Aspartate Amino Transf (AST/SGOT) 27IU/L Blood Urea Nitrogen 14mg/dl Calcium Level 10.7mg/dl Carbon Dioxide Level 27mmol/L Chloride Level 105mmol/L Creatinine 0.78mg/dl Direct Bilirubin 0.00mg/dl Ethyl Alcohol Level < 10.0mg/dl Globulin 3.00g/dl Glucose Level 82mg/dl Indirect Bilirubin 0.5mg/dl Potassium Level 3.4mmol/L Sodium Level 145mmol/L Total Bilirubin 0.5mg/dl Total Protein 7.2g/dl Basophils # 0.010^3/ul Basophils % 0.3% Blood Morphology Comment Eosinophils # 0.010^3/ul Eosinophils % 0.5% Hematocrit 34.4% Hemoglobin 11.5g/dl Lymphocytes # 1.110^3/ul Lymphocytes % 21.6% Mean Corpuscular Hemoglobin 30.4pg Mean Corpuscular Hemoglobin Concent 33.6g/dl Mean Corpuscular Volume 90.6fl Mean Platelet Volume 9.1fl Monocytes # 0.410^3/ul Monocytes % 7.4% Neutrophils # 3.510^3/ul Neutrophils % 70.2% Nucleated Red Blood Cells # 0.010^3/ul Nucleated Red Blood Cells % 0.0/100WBC Platelet Count 02195^3/UL Red Blood Count 3.8010^6/ul Red Cell Distribution Width 15.6% White Blood Count 4.910^3/ul Assessment and Plan Assessment/Diagnosis Ryder I: VASCULAR DEMENTIA WITH PSYCHOSIS Ryder II: DEFERED Ryder III: PER RECORD Ryder IV: MODERATE Ryder V: GAF 35 Recommendation/Plan Medication Management PLEASE CONSIDER STARTING ON REMERON 7.5 MG POQHS FOR DEPRESSION, INSOMNIA. PLEASE CONSIDER STARTING ON ZYPREXA 1.25 MG POQHS FOR PARANOIA, INSOMNIA Psychotherapy DEFER TO OUTPT Pt. Caregiver/Family Education SW - PLEASE INVESTIGATE IF PT'S FAMILY IS ARRANGING MEDS FOR THE PATIENT Follow-up/Disposition PLEASE REFER TO OUTPT MENTAL HEALTH [id number] Recommendation: JEAN PAUL TRIVEDI MD May 15, 2016 11:52
--- NOTE | 2016-05-15 14:06 | ERD ---
ER Documentation Chief Complaint Date/Time DATE: 05/15/16 TIME: 0746 Chief Complaint SHAKING IN HANDS AFTER SMOKING MARIJUANA AT 0600. NO N/V NO NEURO DEF HPI 65-year-old female brought to the emergency department by ambulance complaining of "shakiness." Patient was just recently released from our hospital for evaluation of a questionable stroke which left her with left-sided weakness. She states when she has been taking her Keppra and has been compliant with her medications. However, last night she could not sleep, and decided to use marijuana. That made her tremulous and shaky and she called the ambulance to bring her to the emergency department for evaluation. Has no other complaints at this time including no focal weakness numbness headache or any other neurologic symptoms. Further details from review of records from her hospitalization indicate that she had significant social issues during her hospitalization at social work program coordinator was involved in. Patient does state that it has been difficult taking care of herself at home. ROS All systems reviewed and are negative except as per history of present illness. Medications Home Meds Active Scripts Levetiracetam* (Keppra*) 500 Mg Tablet, 500 MG PO BID, #120 TAB Prov:MEY DEL RIO MD 05/08/16 Ondansetron Hcl* (Zofran*) 4 Mg Tablet, 4 MG PO Q8H Y for NAUSEA AND/OR VOMITING , #12 TAB Prov:ASHLEE YUEN DO 04/05/16 Reported Medications Donepezil* (Aricept*) 5 Mg Tablet, 5 MG PO DAILY, TAB 05/04/16 Clopidogrel Bisulfate (Clopidogrel) 75 Mg Tablet, 75 MG PO DAILY, #30 TAB 02/24/16 Amlodipine Besylate* (Amlodipine Besylate*) 5 Mg Tablet, 5 MG PO DAILY, #30 02/24/16 Simvastatin (Simvastatin) 20 Mg Tablet, 20 MG PO QHS, #30 02/24/16 Lisinopril* (Lisinopril*) 20 Mg Tablet, 20 MG PO DAILY, #30 TAB 02/24/16 Allergies Allergies: Coded Allergies: codeine (Verified Allergy, Severe, 05/15/16) PMhx/Soc History of Surgery: No Anesthesia Reaction: No Hx Neurological Disorder: No Hx Respiratory Disorders: No Hx Cardiac Disorders: No Hx Psychiatric Problems: No Hx Miscellaneous Medical Probl: Yes (Substance abuse) Hx Alcohol Use: No Hx Substance Use: Yes Hx Tobacco Use: No Smoking Status: Never smoker FmHx Patient apparently lives at home with a sign and/or family member or friend who is a surveillance system monitor. Apparently there is some difficulty ensuring that she does not fact have appropriate care at home. Physical Exam Vitals Vital Signs Date Time Temp Pulse Resp B/P Pulse Ox O2 Delivery O2 Flow Rate FiO2 05/15/16 10:30 98.3 82 20 108/67 98 Room Air 05/15/16 09:30 98.3 86 20 103/71 98 Room Air 05/15/16 08:33 98.3 73 20 99/81 100 Room Air 05/15/16 07:49 98.2 68 20 108/73 98 Physical Exam GENERAL: Patient is a frail elderly female in no acute distress HEENT: Pupils equal, round, and reactive to light. EOMI. There is no scleral icterus. NECK: C-spine is soft and supple, there is no meningismus. There is no cervical lymphadenopathy. LUNGS: Clear to auscultation bilaterally. There are no rales, wheezes or rhonchi. HEART: Regular rate and rhythm, no murmurs, clicks, rubs or gallops. ABDOMEN: Soft, non-tender, non-distended. There are bowel sounds in all four quadrants. No rebound or guarding. EXTREMITIES: There is no peripheral cyanosis or edema. No focal swelling or erythema. NEURO: Patient is awake alert oriented. Her pupils are midrange equal round and reactive to light, face symmetric, tongue is midline, swallow is normal and gag is normal. Her strength is diminished in the left upper and lower extremities. She has a resting tremor, but no seizures. SKIN: There is no apparent rash or petechiae. HEME/LYMPHATIC: There is no evidence of excessive bruising or lymphedema. PSYCHIATRIC: The patient does not appear anxious or depressed. Result Diagram: 05/15/16 1059 05/15/16 1054 Results 24 hrs Laboratory Tests Test 05/15/16 10:54 05/15/16 10:59 Alanine Aminotransferase (ALT/SGPT) 31IU/L Albumin 4.2g/dl Albumin/Globulin Ratio 1.40 Alkaline Phosphatase 57IU/L Anion Gap 16 Aspartate Amino Transf (AST/SGOT) 27IU/L Blood Urea Nitrogen 14mg/dl Calcium Level 10.7mg/dl Carbon Dioxide Level 27mmol/L Chloride Level 105mmol/L Creatinine 0.78mg/dl Direct Bilirubin 0.00mg/dl Ethyl Alcohol Level < 10.0mg/dl Globulin 3.00g/dl Glucose Level 82mg/dl Indirect Bilirubin 0.5mg/dl Potassium Level 3.4mmol/L Sodium Level 145mmol/L Total Bilirubin 0.5mg/dl Total Protein 7.2g/dl Basophils # 0.010^3/ul Basophils % 0.3% Blood Morphology Comment Eosinophils # 0.010^3/ul Eosinophils % 0.5% Hematocrit 34.4% Hemoglobin 11.5g/dl Lymphocytes # 1.110^3/ul Lymphocytes % 21.6% Mean Corpuscular Hemoglobin 30.4pg Mean Corpuscular Hemoglobin Concent 33.6g/dl Mean Corpuscular Volume 90.6fl Mean Platelet Volume 9.1fl Monocytes # 0.410^3/ul Monocytes % 7.4% Neutrophils # 3.510^3/ul Neutrophils % 70.2% Nucleated Red Blood Cells # 0.010^3/ul Nucleated Red Blood Cells % 0.0/100WBC Platelet Count 74929^3/UL Red Blood Count 3.8010^6/ul Red Cell Distribution Width 15.6% White Blood Count 4.910^3/ul Current Medications Medications (Trade) Dose Ordered Sig/Angie Route PRN Reason Start Time Stop Time Status Last Admin Dose Admin Lorazepam (Ativan) 2 mg ONCE ONCE PO 05/15/16 08:00 05/15/16 08:01 DC 05/15/16 08:23 Acetaminophen (Tylenol Tab) 1,000 mg ONCE STAT PO 05/15/16 08:01 05/15/16 08:02 DC 05/15/16 08:20 Procedures/MDM Patient was taken to a room, seen and evaluated. Comfort measures were initiated. Diagnostic tests were ordered and reviewed. 3 LEAD RHYTHM STRIP: Normal sinus rhythm without ectopy CONSULTATION: patient financial services specialist was notified and attempted to facilitate outpatient placement REEVALUATION: Patient remained neurologically stable MEDICAL DECISION MAKIN-year-old female presents to the emergency department with tremulousness and shakiness after using marijuana. This is in the setting of significant social issues. Patient at this point demonstrates no evidence for a clear safe discharge. Patient is clearly unable to care for herself and does not seem to have appropriate adult supervision at home and is able to help care for her. From a medical standpoint, she appears to be medically compromised with her ongoing neurologic issues, but without evidence of acute stroke. Departure Diagnosis: Primary Impression: Nervousness Condition: Stable Additional Instructions: Please continue medications as prescribed. KELLY CUNHA May 15, 2016 14:06
[2016-05-15 16:36] VITALS: BP 131/61; PULSE 72; RESP 18; TEMP 98.3
--- NOTE | 2016-05-15 16:36 | EN ---
Date/Time of Note Date/Time of Note DATE: 05/15/16 TIME: 16:35 ER Progress Note This this patient is a 65-year-old female who was signed out to me who was awaiting transfer to [facility]. This patient has been accepted in transfer to [facility] at this time. ASHLEE YUEN DO May 15, 2016 16:36
== END 2016-05-15 17:00 | disposition home or self-care (01) ==
LOC: E/R 07:43
DX: R45.0 Nervousness (principal); R40.2142 Coma scale, eyes open, spontaneous, at arrival to emergency department; R40.2362 Coma scale, best motor response, obeys commands, at arrival to emergency department; R40.2252 Coma scale, best verbal response, oriented, at arrival to emergency department
CPT/HCPCS: 80053; 80306; 85025; 99283

== ENCOUNTER 2016-11-08 07:39 | Emergency (ER) | END 2016-11-08 12:23 | disposition home or self-care (01) | DX: R55 Syncope and collapse (principal); I10 Essential (primary) hypertension | CPT/HCPCS: 70450; 71010; 80048; 82962; 84484; 85025; 93005; J7030; Z7502 ==

== ENCOUNTER 2016-11-10 19:38 | Inpatient (IN) | payer OTHER ==
[~2016-11-10] VITALS: Ht 157.5 cm; Wt 52.2 kg
[2016-11-10 19:45] VITALS: Ht 157.5 cm; Wt 52.2 kg
[2016-11-10] MEDS ORDERED: SOD CHLORIDE 0.9% 1,000 ML IV STA (20:03)
[2016-11-10 20:26] LABS: BASOPHILS % 0.2 % (0.0-2.0); EOSINOPHILS % 0.1 % (0.0-7.0); HEMATOCRIT 34.6 % (37.0-47.0); HEMOGLOBIN 11.2 g/dl (12.0-16.0); LYMPHOCYTES # 0.9 10^3/ul (0.8-2.9); MEAN CORPUSCULAR HEMOGLOBIN 29.4 pg (29.0-33.0); MEAN CORPUSCULAR HGB CONC 32.4 g/dl (32.0-37.0); MEAN CORPUSCULAR VOLUME 90.8 fl (82.0-101.0); MEAN PLATELET VOLUME 10.7 fl (7.4-10.4); MONOCYTE # 0.9 10^3/ul (0.3-0.9); MONOCYTES % 7.2 % (0.0-11.0); PLATELET COUNT 218 10^3/UL (140-415); RED BLOOD COUNT 3.81 10^6/ul (4.20-5.40); RED CELL DISTRIBUTION WIDTH 12.5 % (11.5-14.5); WHITE BLOOD COUNT 12.7 10^3/ul (4.8-10.8)
[2016-11-10 20:41] LABS: INR 1.06; PARTIAL THROMBOPLASTIN TIME 23.9 Sec (25.0-35.0); PROTIME 13.8 Sec (12.2-14.2); PT RATIO 1.1
[2016-11-10 20:48] LABS: ALBUMIN 4.9 g/dl (3.3-4.9); ALBUMIN/GLOBULIN RATIO 1.58; BILIRUBIN,INDIRECT 0.3 mg/dl (0-1.1); BILIRUBIN,TOTAL 0.3 mg/dl (0.2-1.3); CALCIUM 11.7 mg/dl (8.4-10.2); CREATININE 1.17 mg/dl (0.44-1.00); POTASSIUM 3.3 mmol/L (3.5-5.1)
[2016-11-10] MEDS ORDERED: SOD CHLORIDE 0.9% 1,000 ML IV ONE (21:00)
[2016-11-10 21:04] LABS: TROPONIN-I 0.031 ng/ml (0.00-0.12)
[2016-11-10 21:53] LABS: URINE BLOOD (Dip) POC Trace-lysed (NEGATIVE)
[2016-11-10 22:45] LABS: ADD UMIC YES; UR ASCORBIC ACID NEGATIVE (NEGATIVE); UR BACTERIA FEW /HPF (NONE SEEN); UR BILIRUBIN (Dip) NEGATIVE (NEGATIVE); UR BLOOD (Dip) 1+ mg/dL (NEGATIVE); UR CLARITY SLIGHTLY CLOUDY (CLEAR); UR COLOR STRAW (YELLOW); UR GLUCOSE (Dip) NEGATIVE (NEGATIVE); UR KETONES (Dip) NEGATIVE (NEGATIVE); UR LEUKOCYTE ESTERASE (Dip) 1+ Leu/ul (NEGATIVE); UR MUCUS FEW /HPF (NONE SEEN); UR NITRITE (Dip) NEGATIVE (NEGATIVE); UR RBC 5 /HPF (0-5); UR SPECIFIC GRAVITY (Dip) 1.006 (1.003-1.030); UR TOTAL PROTEIN (Dip) 2+ mg/dl (NEGATIVE); UR UROBILINOGEN (Dip) NEGATIVE (NEGATIVE)
[2016-11-10] MEDS ORDERED: ONDANSETRON 4 MG INJ IV PRN (23:00)
[2016-11-10] MEDS ORDERED: ACETAMINOPHEN 325 MG TAB PO PRN (23:00)
--- NOTE | 2016-11-10 23:36 | ERA ---
ER Documentation Chief Complaint Date/Time DATE: 11/10/16 TIME: 23:32 Chief Complaint BIB RA 39 C/O WEAK AND DIZZY X 1 DAY. WAS SEEN IN ER COUPLE DAYS AGO HPI This 66-year-old female presents feeling weak and dizzy for a day. She was seen in the ER couple days ago for near syncopal episodes. She has had suprapubic abdominal pain on and off. She has had nausea and some vomiting as well. Denies any chest pain or cough. Denies any fevers but has had chills. Has no vaginal symptoms. ROS All systems reviewed and are negative except as per history of present illness. Medications Home Meds Active Scripts Levetiracetam* (Keppra*) 500 Mg Tablet, 500 MG PO BID, #120 TAB Prov:MEY DEL RIO MD 05/08/16 Ondansetron Hcl* (Zofran*) 4 Mg Tablet, 4 MG PO Q8H Y for NAUSEA AND/OR VOMITING , #12 TAB Prov:ASHLEE YUEN DO 04/05/16 Reported Medications Donepezil* (Aricept*) 5 Mg Tablet, 5 MG PO DAILY, TAB 05/04/16 Clopidogrel Bisulfate (Clopidogrel) 75 Mg Tablet, 75 MG PO DAILY, #30 TAB 02/24/16 Amlodipine Besylate* (Amlodipine Besylate*) 5 Mg Tablet, 5 MG PO DAILY, #30 02/24/16 Simvastatin (Simvastatin) 20 Mg Tablet, 20 MG PO QHS, #30 02/24/16 Lisinopril* (Lisinopril*) 20 Mg Tablet, 20 MG PO DAILY, #30 TAB 02/24/16 Allergies Allergies: Coded Allergies: codeine (Verified Allergy, Severe, 11/10/16) PMhx/Soc History of Surgery: No Anesthesia Reaction: No Hx Neurological Disorder: Yes (STROKE X3) Hx Respiratory Disorders: No Hx Cardiac Disorders: Yes (HTN) Hx Psychiatric Problems: No Hx Miscellaneous Medical Probl: Yes (Substance abuse, Seizure, CVA) Hx Alcohol Use: No Hx Substance Use: Yes Hx Tobacco Use: No Smoking Status: Former smoker Physical Exam Vitals Vital Signs Date Time Temp Pulse Resp B/P Pulse Ox O2 Delivery O2 Flow Rate FiO2 11/10/16 19:45 97.7 75 18 116/66 100 Physical Exam Const: [] Mild distress Head: Atraumatic Eyes: Normal Conjunctiva ENT: Normal External Ears, Nose and Mouth. Neck: Full range of motion..~ No meningismus. Resp: Clear to auscultation bilaterally Cardio: Regular rate and rhythm, no murmurs Abd: Soft, mild suprapubic tenderness without any guarding or rebound peer, non distended. Normal bowel sounds Skin: No petechiae or rashes Back: No midline or flank tenderness Ext: No cyanosis, or edema Neur: Awake and alert and oriented 3, no focal deficits Psych: Normal Mood and Affect Result Diagram: 11/10/16200911/10/162009 Results 24 hrs Laboratory Tests Test 11/10/16 20:10 11/10/16 21:59 11/10/16 22:00 White Blood Count 12.710^3/ul Red Blood Count 3.8110^6/ul Hemoglobin 11.2g/dl Hematocrit 34.6% Mean Corpuscular Volume 90.8fl Mean Corpuscular Hemoglobin 29.4pg Mean Corpuscular Hemoglobin Concent 32.4g/dl Red Cell Distribution Width 12.5% Platelet Count 16210^3/UL Mean Platelet Volume 10.7fl Neutrophils % 85.0% Lymphocytes % 7.0% Monocytes % 7.2% Eosinophils % 0.1% Basophils % 0.2% Nucleated Red Blood Cells % 0.0/100WBC Neutrophils # (Manual) 10.810^3/ul Lymphocytes # 0.910^3/ul Monocytes # 0.910^3/ul Eosinophils # 0.010^3/ul Basophils # 0.010^3/ul Nucleated Red Blood Cells # 0.010^3/ul Prothrombin Time 13.8Sec Prothrombin Time Ratio 1.1 INR International Normalized Ratio 1.06 Activated Partial Thromboplast Time 23.9Sec Sodium Level 142mmol/L Potassium Level 3.3mmol/L Chloride Level 104mmol/L Carbon Dioxide Level 25mmol/L Anion Gap 16 Blood Urea Nitrogen 14mg/dl Creatinine 1.17mg/dl Glucose Level 121mg/dl Lactic Acid Level 4.0mmol/L Calcium Level 11.7mg/dl Total Bilirubin 0.3mg/dl Direct Bilirubin 0.00mg/dl Indirect Bilirubin 0.3mg/dl Aspartate Amino Transf (AST/SGOT) 22IU/L Alanine Aminotransferase (ALT/SGPT) 18IU/L Alkaline Phosphatase 76IU/L Troponin I 0.031ng/ml Total Protein 8.0g/dl Albumin 4.9g/dl Globulin 3.10g/dl Albumin/Globulin Ratio 1.58 Lipase 157U/L Bedside Urine pH (LAB) 6.5 Bedside Urine Protein (LAB) 2+ Bedside Urine Glucose (UA) Negative Bedside Urine Ketones (LAB) Negative Bedside Urine Blood Trace-lysed Bedside Urine Nitrite (LAB) Negative Bedside Urine Leukocyte Esterase (L 1+ Urine Color STRAW Urine Clarity SLIGHTLY CLOUDY Urine pH 6.0 Urine Specific [place] 1.006 Urine Ketones NEGATIVEmg/dL Urine Nitrite NEGATIVEmg/dL Urine Bilirubin NEGATIVEmg/dL Urine Urobilinogen NEGATIVEmg/dL Urine Leukocyte Esterase 1+Nataly/ul Urine Microscopic RBC 5/HPF Urine Microscopic WBC 8/HPF Urine Bacteria FEW/HPF Urine Mucus FEW/HPF Urine Hemoglobin 1+mg/dL Urine Glucose NEGATIVEmg/dL Urine Total Protein 2+mg/dl Current Medications Medications (Trade) Dose Ordered Sig/Angie Route PRN Reason Start Time Stop Time Status Last Admin Dose Admin Sodium Chloride 1,000 ml @ 1,000 mls/hr Q1H STAT IV 11/10/16 20:03 11/10/16 21:02 DC 11/10/16 20:47 Sodium Chloride (NS) 1,000 ml @ 1,000 mls/hr Q1H ONCE IV 11/10/16 21:00 11/10/16 21:59 DC 11/10/16 21:00 Ondansetron HCl (Zofran Inj) 4 mg BRIDGE ORDER PRN IV NAUSEA AND/OR VOMITING 11/10/16 23:00 11/11/16 22:59 Acetaminophen (Tylenol Tab) 650 mg ER BRIDGE PRN PO MILD PAIN/FEVER 11/10/16 23:00 11/11/16 22:59 Procedures/MDM UTI with dehydration and mild renal insufficiency. With lactate of 4, patient is shown that she is severely dehydrated. This likely secondary UTI causing nausea and decreased appetite as well as some vomiting. She was hydrated with 2 L of normal saline and given a gram of cefepime. She is also given Zofran which resolved her nausea and Tylenol. With accommodation Tylenol fluid she had no more abdominal pain. She needs to be admitted for further hydration and IV antibiotics. Vital signs are otherwise stable so she is currently admitted to [facility]. I spoke with Dr. Miner who will be admitting. Departure Diagnosis: Primary Impression: UTI (urinary tract infection) Additional Impressions: Generalized weakness Dehydration Vomiting Condition: Stable JOHN MCMILLAN DO Nov 10, 2016 23:36
[2016-11-10 23:37] VITALS: PULSE 69; TEMP 98.1
[2016-11-11] MEDS ORDERED: CEFEPIME 1GM/50 ML (PMX) 50 ML IVPB ONE
[2016-11-11 01:27] VITALS: BP 141/83; RESP 18
[2016-11-11] MEDS ORDERED: hydrALAzine 20 MG INJ IV PRN (02:00)
[2016-11-11] MEDS ORDERED: ONDANSETRON 4 MG INJ IV PRN (02:00)
[2016-11-11] MEDS ORDERED: SOD CHLORIDE 0.9% 1,000 ML IV SCH (02:00)
[2016-11-11] MEDS: SOD CHLORIDE 0.9% 1,000 ML IV SCH ×3 (05:30→15:11)
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
[2016-11-11 08:03] VITALS: BP 136/74; RESP 16
[2016-11-11] MEDS: CEFTRIAXONE 1 GM/50 ML (PMX) 50 ML IVPB SCH ×2 (09:14→20:47)
[2016-11-11] MEDS: HEPARIN 5,000 UNIT/0.5 ML VIAL SC SCH ×2 (09:38→20:55)
[2016-11-11 10:31] LABS: BASOPHILS % 0.4 % (0.0-2.0); EOSINOPHILS % 0.5 % (0.0-7.0); HEMATOCRIT 30.4 % (37.0-47.0); HEMOGLOBIN 9.8 g/dl (12.0-16.0); LYMPHOCYTES # 1.6 10^3/ul (0.8-2.9); LYMPHOCYTES % 28.7 % (15.0-51.0); MEAN CORPUSCULAR HEMOGLOBIN 30.2 pg (29.0-33.0); MEAN CORPUSCULAR HGB CONC 32.2 g/dl (32.0-37.0); MEAN CORPUSCULAR VOLUME 93.5 fl (82.0-101.0); MEAN PLATELET VOLUME 10.9 fl (7.4-10.4); MONOCYTE # 0.6 10^3/ul (0.3-0.9); MONOCYTES % 9.9 % (0.0-11.0); NEUTROPHILS % 60.3 % (39.0-77.0); PLATELET COUNT 155 10^3/UL (140-415); RED BLOOD COUNT 3.25 10^6/ul (4.20-5.40); RED CELL DISTRIBUTION WIDTH 12.8 % (11.5-14.5); WHITE BLOOD COUNT 5.5 10^3/ul (4.8-10.8)
[2016-11-11 10:56] LABS: CALCIUM 10.1 mg/dl (8.4-10.2); CREATININE 0.81 mg/dl (0.44-1.00); MAGNESIUM 1.9 mg/dl (1.7-2.5); PHOSPHORUS 2.6 mg/dl (2.5-4.9); POTASSIUM 3.4 mmol/L (3.5-5.1)
[2016-11-11] MEDS ORDERED: POTASSIUM CHLORIDE (SR) 20 MEQ TAB PO STA (11:29)
[2016-11-11] MEDS: LEVETIRACETAM 500 MG TAB PO SCH ×2 (11:52→20:46)
[2016-11-11] MEDS: LISINOPRIL 20 MG TAB PO SCH (11:52)
[2016-11-11] MEDS: DONEPEZIL 5 MG TAB PO SCH (11:52)
[2016-11-11] MEDS: AMLODIPINE 5 MG TAB PO SCH (11:53)
[2016-11-11] MEDS: CLOPIDOGREL 75 MG TAB PO SCH (11:53)
[2016-11-11 13:14] VITALS: BP 134/87; RESP 16
[2016-11-11 20:16] VITALS: BP 138/72; RESP 18
[2016-11-11] MEDS ORDERED: ATORVASTATIN 10 MG TAB PO SCH (21:00)
[2016-11-11] MEDS ORDERED: NON-FORMULARY/PATIENT OWN MED (Simvastatin 20 MG) PO SCH (21:00)
[2016-11-12] MEDS: SOD CHLORIDE 0.9% 1,000 ML IV SCH (01:30)
[2016-11-12 02:33] VITALS: BP 143/80; RESP 18
[2016-11-12] MEDS: ACETAMINOPHEN 325 MG TAB PO PRN ×2 (04:19→14:11)
[2016-11-12 08:15] VITALS: BP 160/88; RESP 16
[2016-11-12] MEDS: CEFTRIAXONE 1 GM/50 ML (PMX) 50 ML IVPB SCH (09:13)
[2016-11-12] MEDS: AMLODIPINE 5 MG TAB PO SCH (09:13)
[2016-11-12] MEDS: CLOPIDOGREL 75 MG TAB PO SCH (09:13)
[2016-11-12] MEDS: LISINOPRIL 20 MG TAB PO SCH (09:13)
[2016-11-12] MEDS: DONEPEZIL 5 MG TAB PO SCH (09:13)
[2016-11-12] MEDS: LEVETIRACETAM 500 MG TAB PO SCH (09:13)
[2016-11-12] MEDS: HEPARIN 5,000 UNIT/0.5 ML VIAL SC SCH (09:48)
[2016-11-12 12:31] LABS: BASOPHILS % 0.6 % (0.0-2.0); EOSINOPHILS % 0.2 % (0.0-7.0); HEMATOCRIT 34.2 % (37.0-47.0); HEMOGLOBIN 11.3 g/dl (12.0-16.0); LYMPHOCYTES # 1.4 10^3/ul (0.8-2.9); LYMPHOCYTES % 27.1 % (15.0-51.0); MEAN CORPUSCULAR HEMOGLOBIN 29.7 pg (29.0-33.0); MEAN CORPUSCULAR VOLUME 89.8 fl (82.0-101.0); MEAN PLATELET VOLUME 11.2 fl (7.4-10.4); MONOCYTE # 0.4 10^3/ul (0.3-0.9); MONOCYTES % 8.8 % (0.0-11.0); NEUTROPHILS % 63.1 % (39.0-77.0); PLATELET COUNT 216 10^3/UL (140-415); RED BLOOD COUNT 3.81 10^6/ul (4.20-5.40); RED CELL DISTRIBUTION WIDTH 12.8 % (11.5-14.5)
[2016-11-12 12:46] LABS: CALCIUM 10.9 mg/dl (8.4-10.2); CREATININE 0.81 mg/dl (0.44-1.00); MAGNESIUM 1.9 mg/dl (1.7-2.5); POTASSIUM 3.3 mmol/L (3.5-5.1)
[2016-11-12 13:18] VITALS: BP 144/75; RESP 16
[2016-11-12] MEDS ORDERED: POTASSIUM CHLORIDE (SR) 20 MEQ TAB PO STA (14:30)
--- NOTE | 2016-11-12 14:43 | PDOCDIS ---
Discharge Instructions CONDITION Patient Condition: Stable HOME CARE INSTRUCTIONS: Diet Instructions: Low Fat /Cholesterol ACTIVITY: Activity Restrictions: Slowly Increase Activity FOLLOW UP/APPOINTMENTS Follow-up Plan Follow-up with primary care physician within 1 week RODRI NGUYEN Nov 12, 2016 14:43
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
[2016-11-12] MEDS ORDERED: CEPH500C PO (14:44)
[2016-11-12 14:47] LABS: ADD UMIC YES; UR ASCORBIC ACID NEGATIVE (NEGATIVE); UR BILIRUBIN (Dip) NEGATIVE (NEGATIVE); UR BLOOD (Dip) 1+ mg/dL (NEGATIVE); UR CLARITY CLEAR (CLEAR); UR COLOR YELLOW (YELLOW); UR GLUCOSE (Dip) NEGATIVE (NEGATIVE); UR KETONES (Dip) 1+ mg/dL (NEGATIVE); UR LEUKOCYTE ESTERASE (Dip) 2+ Leu/ul (NEGATIVE); UR NITRITE (Dip) NEGATIVE (NEGATIVE); UR RBC 2 /HPF (0-5); UR SPECIFIC GRAVITY (Dip) 1.016 (1.003-1.030); UR SQUAMOUS EPITHELIAL CELL FEW /HPF (FEW); UR TOTAL PROTEIN (Dip) NEGATIVE (NEGATIVE); UR UROBILINOGEN (Dip) NEGATIVE (NEGATIVE)
[2016-11-12] MEDS ORDERED: QUETIAPINE 25 MG TAB PO ONE (16:00)
[2016-11-12] MEDS ORDERED: CEPHALEXIN 500 MG CAP PO SCH (21:00)
== END 2016-11-12 16:50 | DRG 872 ==
LOC: E/R 19:38 → MS2 22:52
PROVIDERS: ADMIT Internal Medicine; ATTEND Internal Medicine
DX: A41.9 Sepsis, unspecified organism (principal); N17.9 Acute kidney failure, unspecified; F03.90 Unspecified dementia, unspecified severity, without behavioral disturbance, psychotic disturbance, mood disturbance, and anxiety; N39.0 Urinary tract infection, site not specified; T76.11XA Adult physical abuse, suspected, initial encounter; E83.52 Hypercalcemia; E78.5 Hyperlipidemia, unspecified; E87.6 Hypokalemia; E86.0 Dehydration; R53.1 Weakness; I10 Essential (primary) hypertension; G40.909 Epilepsy, unspecified, not intractable, without status epilepticus; R53.81 Other malaise; Z86.73 Personal history of transient ischemic attack (TIA), and cerebral infarction without residual deficits; Z88.6 Allergy status to analgesic agent
CPT/HCPCS: 36415; 80048; 80053; 81001; 81003; 82330; 83605; 83690; 83735; 83970; 84100; 84484; 85025; 85610; 85730; 87081; 87086; 93005; 96374; J0692; J0696; J1644; J2405; J7030; P9612

== ENCOUNTER 2016-11-16 07:32 | Inpatient (IN) | payer OTHER ==
[~2016-11-16] VITALS: Ht 162.6 cm; Wt 43.2 kg
[~2016-11-16 07:32] MED LIST changes: +CEPH500C PO
[2016-11-16 07:53] VITALS: Ht 162.6 cm; Wt 43.2 kg
[2016-11-16] MEDS ORDERED: LORAZEPAM 2 MG INJ IV ONE ×2 (08:00→14:00)
--- NOTE | 2016-11-16 08:00 | ERD ---
ER Documentation Chief Complaint Date/Time DATE: 11/16/16 TIME: 07:58 Chief Complaint BIBA FROM SNF D/T CONVULSIONS. DID NOT RECEIVE SCHEDULE KEPPRA THIS AM. HPI 65-year-old female with a past medical history of hypertension, hyperlipidemia, CVA, dementia, and history of seizure disorder on Keppra sent from her jail facility due to seizure-like activity. However the patient has been awake. She currently states that she is dizzy but has no other complaints. However she is not answering questions appropriately. She just stares at me at times. But she is awake and alert. History is otherwise limited. Her medical records were reviewed and it seems she was just admitted on November 10 for UTI and discharged on the . ROS All systems reviewed and are negative except as per history of present illness. Medications Home Meds Active Scripts Cephalexin* (Cephalexin*) 500 Mg Capsule, 500 MG PO Q12 for 7 Days, CAP Prov:RODRI NGUYEN 11/12/16 Levetiracetam* (Keppra*) 500 Mg Tablet, 500 MG PO BID, #120 TAB Prov:MEY DEL RIO MD 05/08/16 Ondansetron Hcl* (Zofran*) 4 Mg Tablet, 4 MG PO Q8H Y for NAUSEA AND/OR VOMITING , #12 TAB Prov:ASHLEE YUEN DO 04/05/16 Reported Medications Donepezil* (Aricept*) 5 Mg Tablet, 5 MG PO DAILY, TAB 05/04/16 Clopidogrel Bisulfate (Clopidogrel) 75 Mg Tablet, 75 MG PO DAILY, #30 TAB 02/24/16 Amlodipine Besylate* (Amlodipine Besylate*) 5 Mg Tablet, 5 MG PO DAILY, #30 02/24/16 Simvastatin (Simvastatin) 20 Mg Tablet, 20 MG PO QHS, #30 02/24/16 Lisinopril* (Lisinopril*) 20 Mg Tablet, 20 MG PO DAILY, #30 TAB 02/24/16 Allergies Allergies: Coded Allergies: codeine (Verified Allergy, Severe, 11/10/16) PMhx/Soc History of Surgery: No Anesthesia Reaction: No Hx Neurological Disorder: No Hx Respiratory Disorders: No Hx Cardiac Disorders: Yes (stroke x3, HTN Left sided weakness, CVA, Seizure) Hx Psychiatric Problems: Yes (Anxiety, confused) Hx Miscellaneous Medical Probl: Yes (htn, substance abuse) Hx Alcohol Use: No Hx Substance Use: Yes Hx Tobacco Use: No FmHx Unable to obtain Physical Exam Vitals Vital Signs Date Time Temp Pulse Resp B/P Pulse Ox O2 Delivery O2 Flow Rate FiO2 11/16/16 12:06 98.6 80 22 142/79 93 11/16/16 10:05 98.6 88 22 153/103 93 11/16/16 07:53 98.6 91 22 161/118 93 Physical Exam Const: Nontoxic, intermittent jerking of her entire body, mostly of the left upper extremity Head: Atraumatic Eyes: Normal Conjunctiva, PERRLA ENT: Normal External Ears, Nose and Mouth. Neck: Full range of motion..~ No meningismus. Resp: Clear to auscultation bilaterally Cardio: Tachycardic, regular rhythm, no murmurs Abd: Soft, non tender, non distended. Normal bowel sounds Skin: No petechiae or rashes Back: No midline or flank tenderness Ext: No cyanosis, or edema Neur: Awake and alert but not answering questions. She only stated 1 word to me, but not answering any other questions. Left side spasming, not following commands, spontaneously moving the right upper extremity purposefully. Psych: Normal Mood and Affect Result Diagram: 11/16/16 0815 11/16/16 0815 Results 24 hrs Laboratory Tests Test 11/16/16 08:15 11/16/16 10:30 White Blood Count 10.110^3/ul Red Blood Count 3.6210^6/ul Hemoglobin 10.8g/dl Hematocrit 33.3% Mean Corpuscular Volume 92.0fl Mean Corpuscular Hemoglobin 29.8pg Mean Corpuscular Hemoglobin Concent 32.4g/dl Red Cell Distribution Width 13.1% Platelet Count 04451^3/UL Mean Platelet Volume 10.6fl Neutrophils % 90.0% Lymphocytes % 6.0% Monocytes % 3.6% Eosinophils % 0.0% Basophils % 0.1% Nucleated Red Blood Cells % 0.0/100WBC Neutrophils # (Manual) 910^3/ul Lymphocytes # 0.610^3/ul Monocytes # 0.410^3/ul Eosinophils # 0.010^3/ul Basophils # 0.010^3/ul Nucleated Red Blood Cells # 0.010^3/ul Sodium Level 145mmol/L Potassium Level 4.0mmol/L Chloride Level 100mmol/L Carbon Dioxide Level 28mmol/L Anion Gap 21 Blood Urea Nitrogen 17mg/dl Creatinine 0.70mg/dl Glucose Level 111mg/dl Calcium Level 11.0mg/dl Total Bilirubin 0.3mg/dl Direct Bilirubin 0.00mg/dl Indirect Bilirubin 0.3mg/dl Aspartate Amino Transf (AST/SGOT) 34IU/L Alanine Aminotransferase (ALT/SGPT) 31IU/L Alkaline Phosphatase 66IU/L Troponin I < 0.012ng/ml Total Protein 7.3g/dl Albumin 4.4g/dl Globulin 2.90g/dl Albumin/Globulin Ratio 1.51 Urine Color YELLOW Urine Clarity CLOUDY Urine pH 5.0 Urine Specific [place] 1.020 Urine Ketones 1+mg/dL Urine Nitrite NEGATIVEmg/dL Urine Bilirubin NEGATIVEmg/dL Urine Urobilinogen NEGATIVEmg/dL Urine Leukocyte Esterase 3+Nataly/ul Urine Microscopic RBC 7/HPF Urine Microscopic WBC 20/HPF Urine Squamous Epithelial Cells FEW/HPF Urine Amorphous Crystals FEW/HPF Urine Bacteria FEW/HPF Urine Mucus FEW/HPF Urine Hemoglobin 2+mg/dL Urine Glucose NEGATIVEmg/dL Urine Total Protein 1+mg/dl Current Medications Medications (Trade) Dose Ordered Sig/Angie Route PRN Reason Start Time Stop Time Status Last Admin Dose Admin Lorazepam 1 mg 1 mg ONCE ONCE IV 11/16/16 08:00 11/16/16 08:01 DC 11/16/16 08:05 Sodium Chloride (NS) 1,000 ml @ 1,000 mls/hr Q1H STAT IV 11/16/16 08:04 11/16/16 09:03 DC 11/16/16 08:44 Alprazolam (Xanax) 0.5 mg ONCE ONCE PO 11/16/16 10:00 11/16/16 10:02 DC Levetiracetam 500 mg 500 mg ONCE ONCE PO 11/16/16 10:00 11/16/16 10:02 DC Levetiracetam 100 ml @ 400 mls/hr ONCE ONCE IVPB 11/16/16 10:30 11/16/16 10:44 DC 11/16/16 10:51 Levetiracetam 100 ml @ 400 mls/hr ONCE ONCE IVPB 11/16/16 11:00 11/16/16 11:14 DC 11/16/16 11:18 Ceftriaxone Sodium (Rocephin) 50 ml @ 100 mls/hr ONCE ONCE IVPB 11/16/16 13:00 11/16/16 13:29 UNV Procedures/MDM EMERGENT LABS AND DIAGNOSTIC STUDIES: Lab Results above were reviewed and interpreted by me. CBC: no anemia or evidence of infection CMP: No evidence of electrolyte abnormality, renal failure, hypoglycemia, liver failure, or biliary obstruction Troponin within normal limits UA: Some findings consistent with infection, however last urine culture 11/12 was normal 12-lead EKG was interpreted by Evita Pierce MD: Normal Sinus Rhythm Normal axis Normal intervals No acute ST or T wave changes suggestive of acute ischemia or STEMI. Radiology Results as interpreted by Radiology below were reviewed by Yaakov Pierce MD: Chest XRay: IMPRESSION: No evidence of active cardiopulmonary disease. .Néstor Antonio MD, MD Date Time Electronically viewed and signed by .Néstor Antonio MD, MD on 11/16/2016 08:56 CT Head: FINDINGS: Again demonstrated is a chronic infarct in the right middle cerebral artery territory, involving the frontal, insular and parietal regions with adjacent gliosis, chronic lacunar infarcts in the right basal ganglia, and chronic ischemic changes in the right thalamus, as well as small chronic lacunar infarcts in the left thalamus and left gracia radiata. No acute intracranial hemorrhage is identified. No extra-axial fluid collection is seen. There is no mass effect. No midline shift is identified. The ventricles and sulci are mildly enlarged compatible with volume loss. There are mild - moderate areas of hypodensity in the periventricular - deep white matter which are nonspecific but suggestive of chronic small vessel ischemic changes. Augustin-white differentiation is otherwise preserved. Again noted is a small dural ossification in the right frontal region. Osseous structures are unremarkable. Mastoid air cells and imaged paranasal sinuses grossly clear. IMPRESSION: 1. No evidence of acute intracranial pathology. 2. Chronic right middle cerebral artery territory infarct, chronic right basal ganglia, left thalamic and gracia radiata lacunar infarcts, and chronic ischemic changes in the right thalamus. 3. Mild to delete the volume loss, with mild - moderate chronic small vessel ischemic changes. .Néstor Antonio MD, MD Date Time Electronically viewed and signed by .Néstor Antonio MD, on 11/16/2016 08:32 Initial Nursing notes reviewed. Previous Medical Records requested via the Electronic Health Record. EMERGENCY DEPARTMENT COURSE / MEDICAL DECISION MAKING: Patient is presenting with seizure-like activity which may be focal seizures. Vitals are only notable for mild tachycardia but she is afebrile and otherwise nontoxic. Her labs did not show any significant abnormalities. I gave her Keppra 1 g IV load. I also gave her Ativan 1 mg IV with improvement of her intermittent jerking. Her CT head did not show any new findings, only old changes from her past stroke. I spoke with , who met the patient on her last admission a few days ago. She thinks that the patient should go to a jail facility as at this time she is at a boarding care and they are not unable to take care of her and patient has medication noncompliance. However upon reevaluation, the patient continues to have the seizure-like activity. I cannot rule out status epilepticus at this time. The patient will be admitted for further workup and management. Accepting Care Team: Current data and ongoing care discussed. Time: Time of admission Primary Provider: Gordo Consulting: none Outstanding Data: urine culture Departure Diagnosis: Primary Impression: Seizure-like activity Condition: Serious CARY PIERCE MD Nov 16, 2016 08:00
[2016-11-16] MEDS ORDERED: SOD CHLORIDE 0.9% 1,000 ML IV STA (08:04)
--- NOTE | 2016-11-16 08:33 | RADRPT ---
PROCEDURE: CT brain without contrast CLINICAL INDICATION: Altered mental status TECHNIQUE: CT of the brain without contrast performed on a multidetector CT scanner, with multiplan ar reformats. One or more of the following dose reduction techniques were used: Automated exposure control, adjustment in mA and / or kV according to patient size, use of iterative reconstructive corby hnique. CTDIvol = 45 mGy; DLP = 720 mGy-cm. COMPARISON: CT brain 11/08/2016, MRI brain 05/05/2016 FINDINGS: Again demonstrated is a chronic infarct in the right middle cerebral artery territory, involving the frontal, insular and parietal regions with adjacent gliosis, chronic lacunar infarcts in the right basal ganglia, and chronic ischemic changes in the right thalamus, as well as small chronic lacunar infarcts in the left thalamus and left gracia radiata. No acute intracranial hemorrhage is identified. No extra-axial fluid collection is seen. There is no mass effect. No midline shift is identified. The ventricles and sulci are mildly enlarged compatible with volume loss. There are mild - moderate areas of hypodensity in the periventricular - deep white matter which are nonspecific but suggestive of chronic small vessel ischemic changes. Augustin-white differentiation is otherwise preserved. Again noted is a small dural ossification in the right frontal region. Osseous structures are unremarkable. Mastoid air cells and imaged paranasal sinuses grossly clear. IMPRESSION: 1. No evidence of acute intracranial pathology. 2. Chronic right middle cerebral artery territory infarct, chronic right basal ganglia, left thalam ic and gracia radiata lacunar infarcts, and chronic ischemic changes in the right thalamus. 3. Mild to delete the volume loss, with mild - moderate chronic small vessel ischemic changes. RPTAT: VV .Néstor Antonio MD, MD Date Time Electronically viewed and signed by .Néstor Antonio MD, MD on 11/16/2016 08:32 .O/
[2016-11-16 08:42] LABS: BASOPHILS % 0.1 % (0.0-2.0); HEMATOCRIT 33.3 % (37.0-47.0); HEMOGLOBIN 10.8 g/dl (12.0-16.0); LYMPHOCYTES # 0.6 10^3/ul (0.8-2.9); MEAN CORPUSCULAR HEMOGLOBIN 29.8 pg (29.0-33.0); MEAN CORPUSCULAR HGB CONC 32.4 g/dl (32.0-37.0); MEAN PLATELET VOLUME 10.6 fl (7.4-10.4); MONOCYTE # 0.4 10^3/ul (0.3-0.9); MONOCYTES % 3.6 % (0.0-11.0); PLATELET COUNT 268 10^3/UL (140-415); RED BLOOD COUNT 3.62 10^6/ul (4.20-5.40); RED CELL DISTRIBUTION WIDTH 13.1 % (11.5-14.5); WHITE BLOOD COUNT 10.1 10^3/ul (4.8-10.8)
[2016-11-16 08:57] LABS: ALANINE AMINOTRANSFERASE 31 IU/L (13-69); ALBUMIN 4.4 g/dl (3.3-4.9); ALBUMIN/GLOBULIN RATIO 1.51; ALKALINE PHOSPHATASE 66 IU/L (42-121); ANION GAP 21 (8-16); ASPARTATE AMINO TRANSFERASE 34 IU/L (15-46); BILIRUBIN,INDIRECT 0.3 mg/dl (0-1.1); BILIRUBIN,TOTAL 0.3 mg/dl (0.2-1.3); BLOOD UREA NITROGEN 17 mg/dl (7-20); CARBON DIOXIDE 28 mmol/L (21-31); CHLORIDE 100 mmol/L (97-110); GLUCOSE 111 mg/dl (70-220); SODIUM 145 mmol/L (135-144); TOTAL PROTEIN 7.3 g/dl (6.1-8.1)
--- NOTE | 2016-11-16 08:57 | RADRPT ---
PROCEDURE: XR Chest. CLINICAL INDICATION: Altered mental status, seizures TECHNIQUE: AP view of the chest was obtained. COMPARISON: 05/04/2016 FINDINGS: There are atherosclerotic calcifications of the thoracic aorta. The cardiomediastinal silhouette i s within normal limits. The lungs are clear. No pleural effusion or pneumothorax is identified. D egenerative changes of the visualized osseous structures are noted. IMPRESSION: No evidence of active cardiopulmonary disease. RPTAT: VV .Néstor Antonio MD, MD Date Time Electronically viewed and signed by .Néstor Antonio MD, MD on 11/16/2016 08:56 .O/
[2016-11-16 09:12] LABS: TROPONIN-I < 0.012 ng/ml (0.00-0.12)
[2016-11-16] MEDS ORDERED: LEVETIRACETAM 500 MG TAB PO ONE (10:00)
[2016-11-16] MEDS ORDERED: ALPRAZOLAM 0.25 MG TAB PO ONE (10:00)
[2016-11-16] MEDS ORDERED: LEVETIRACETAM 500 MG (PMX) 100 ML IVPB ONE ×2 (10:30→11:00)
[2016-11-16 11:31] LABS: ADD UMIC YES; UR AMORPHOUS CRYSTAL FEW /HPF (NONE SEEN); UR ASCORBIC ACID NEGATIVE (NEGATIVE); UR BACTERIA FEW /HPF (NONE SEEN); UR BILIRUBIN (Dip) NEGATIVE (NEGATIVE); UR BLOOD (Dip) 2+ mg/dL (NEGATIVE); UR CLARITY CLOUDY (CLEAR); UR COLOR YELLOW (YELLOW); UR GLUCOSE (Dip) NEGATIVE (NEGATIVE); UR KETONES (Dip) 1+ mg/dL (NEGATIVE); UR LEUKOCYTE ESTERASE (Dip) 3+ Leu/ul (NEGATIVE); UR MUCUS FEW /HPF (NONE SEEN); UR NITRITE (Dip) NEGATIVE (NEGATIVE); UR RBC 7 /HPF (0-5); UR SQUAMOUS EPITHELIAL CELL FEW /HPF (FEW); UR TOTAL PROTEIN (Dip) 1+ mg/dl (NEGATIVE); UR UROBILINOGEN (Dip) NEGATIVE (NEGATIVE)
[2016-11-16] MEDS ORDERED: CEFTRIAXONE 1 GM/50 ML (PMX) 50 ML IVPB ONE (13:00)
--- NOTE | 2016-11-16 13:00 | QN ---
Documentation Comment Briefly this is a 66-year-old female, has been admitted at [facility] multiple times, last admission was secondary to UTI, urine cultures then showed mixed colonies, she was discharged on Keflex after treatment with Rocephin. She also has a history of seizure disorder and multiple presentation here at [facility] with episodes of breakthrough seizure secondary to noncompliance or missed doses of Keppra. Patient presented again today in the emergency department with the tremors, she is documented to have episodes of tremors likely breakthrough seizures, she did not get her Keppra today. She was given a dose of 1000 mg of Keppra in the emergency department after a dose of Ativan, patient remained stable. She will be transferred to a correction facility for medication management primarily and monitoring along with physical therapy. At baseline she is alert oriented 1-2. Her UA is coming back positive again, it is unclear if she has been taking her antibiotics upon discharge 3 days ago. She will be put back on Rocephin IV while at correction facility also. Urine cultures will be pending here at [facility]. Transfer to correction facility with following orders: Diagnosis: UTI, chronic (partial) seizure disorder, status post CVA, chronic vascular dementia Physical therapy to evaluate and treat Diet: Regular diet Activity: As tolerated Medications: Keppra 750 mg p.o. twice daily and if patient getting oversedated can be titrated down to 500 mg p.o. twice daily Norvasc 5 mg po daily Simvastatin 20 mg p.o. day Plavix 75 mg p.o. daily Aricept 5 mg p.o. daily Rocephin 1 g IV every 24 hours until final urine cultures available Ativan 1 mg p.o. every 6 hours as needed anxiety/tremors Urine culture taken today at [facility], to be followed for sensitivities and antibiotic adjustments Referral to neurology as an outpatient through [facility] for follow- up regarding seizure disorder, status post old CVA RODRI NGUYEN Nov 16, 2016 12:53
[2016-11-16] MEDS ORDERED: ONDANSETRON 4 MG INJ IV PRN ×2 (13:30→14:00)
[2016-11-16] MEDS ORDERED: ACETAMINOPHEN 325 MG TAB PO PRN (13:30)
[2016-11-16] MEDS: SOD CHLORIDE 0.9% 1,000 ML IV SCH (13:33)
[2016-11-16] MEDS ORDERED: MAGNESIUM HYDROXIDE 30ML CUP PO PRN (14:00)
[2016-11-16] MEDS: CEFTRIAXONE 1 GM/50 ML (PMX) 50 ML IVPB SCH (14:00)
[2016-11-16] MEDS ORDERED: BISACODYL 10 MG SUPP PR PRN (14:00)
[2016-11-16] MEDS ORDERED: NACL 0.9% 3 ML SYG IV SCH (14:00)
[2016-11-16] MEDS ORDERED: ONDANSETRON 4 MG TAB PO PRN (14:00)
[2016-11-16] MEDS ORDERED: DOCUSATE SODIUM 100 MG CAP PO PRN (14:00)
[2016-11-16 14:06] VITALS: TEMP 98.6
[2016-11-16] MEDS ORDERED: MAGNESIUM SULFATE 2 GM/50 ML 50 ML IVPB ONE (15:00)
--- NOTE | 2016-11-16 15:52 | HP ---
Date/Time of Note Date/Time of Note DATE: 11/16/16 TIME: 15:51 Assessment/Plan VTE Prophylaxis VTE Prophylaxis Intervention: SCD's Assessment/Plan Assessment/Plan 66-year-old female with: 1. Left upper extremity tremors, involuntary movement, gaze deviation to the left, lethargy, all consistent with probable partial complex seizures, patient with also seizure disorder. CT head noncontrast only shows old CVAs Patient given Keppra 1 g IV 1, will re-dose her Keppra at 750 mg IV twice daily. Ativan as needed, seizure precautions. MRI brain pending EEG pending Neurology consult ordered 2. Multiple old CVAs: Continue antiplatelet and statin once patient able to take p.o. Blood pressure control 3. Dementia, likely vascular dementia, alert and oriented 1-2 at baseline. Continue Aricept once patient able to take p.o. 4. Hypertension: Controlled, continue home medications. 5. Hyperlipidemia and previous CVA, continue statin therapy once able to take p.o. 6. Positive UA, possible recurrent UTI, urine culture and blood cultures pending, continue Rocephin while awaiting cultures. Prophylaxis: Seizure precautions, SCDs for DVT prophylaxis, Protonix for GI prophylaxis Disposition: EEG, neurology consult, MRI brain HPI/ROS Admit Date/Time Admit Date/Time Nov 16, 2016 at 13:31 Hx of Present Illness Chief complaint: Left upper extremity tremors and involuntary movements History of presenting illness: This is a 66-year-old female with a previous history of old MCA territories cerebrovascular accident, vascular dementia, hypertension, seizure disorder described as tremors or involuntary movement of the left upper extremity should be on Keppra twice daily and I was transferred from her boarding care with reported tremors of the left upper extremity in particular. Patient is not responsive, she stares but cannot speak which is suspicious for ongoing seizures at this point, is likely a partial complex seizure that were observing. She did receive Ativan earlier in the ER, also she was loaded with Keppra 1 g IV 1. She seems to be having currently seizure activity with again left upper extremity involuntary movements, eyes deviated to the left slightly, unable to answer questions and aphasia. She is admitted to telemetry, she is on seizure precaution, she will be given doses of Ativan to control her seizures and involuntary movement of the upper extremity. Neurology is consulted, EEG will be ordered, MRI will be repeated. CAT scan of the head shows her old right MCA territory CVA. No fevers, patient protecting her airway well. She did have a urinary tract infection on last admission, she was treated with Rocephin and Keflex, urine analysis is again dirty today. Urine culture pending , blood cultures pending, patient is put on Rocephin. ROS Subjective hx not possible: pt non-verbal Neurologic: seizure (Observed) PMH/Family/Social Past Medical History Seizure disorder, described previously as the left upper extremity tremors and seems to be consistent with partial complex seizures. Previous Chronic right middle cerebral artery territory infarct, chronic right basal ganglia, left thalamic and gracia radiata lacunar infarcts, and chronic ischemic changes in the right thalamus. Hypertension Hyperlipidemia Dementia, vascular Recent UTI Past Surgical History Past Surgical Hx: no surgical history Social History Alcohol Use: none Smoking Status: Never smoker Drug Use: none Exam/Review of Systems Vital Signs Vitals Vital Signs Date Time Temp Pulse Resp B/P Pulse Ox O2 Delivery O2 Flow Rate FiO2 11/16/16 12:06 98.6 80 22 142/79 93 Exam Constitutional: frail, other (Patient not following command, also aphasic, likely still having partial complex seizure) Respiratory: clear to auscultation, normal air movement Cardiovascular: nl pulses, regular rate and rhythm Gastrointestinal: non-tender, soft Musculoskeletal: other (No edema, clubbing or cyanosis) Extremities: normal pulses Neurological: other (Patient with a gaze preference to the left, left upper extremity tremors and abnormal movement consistent with partial complex seizures ) Labs Result Diagram: 11/16/1681411/16/1615 Medications Medications Home medication: See medication reconciliation on admission. Current Medications Amlodipine Besylate (Norvasc) 5 mg DAILY PO ; Start 11/17/16 at 09:00 Clopidogrel Bisulfate (plaVIX) 75 mg DAILY PO ; Start 11/17/16 at 09:00 Donepezil HCl (Aricept) 5 mg DAILY PO ; Start 11/17/16 at 09:00 Lisinopril (Zestril) 20 mg DAILY PO ; Start 11/17/16 at 09:00 Ondansetron HCl (Zofran Tab) 4 mg Q8H PRN PO NAUSEA AND/OR VOMITING; Start at 14:00 Atorvastatin Calcium 10 mg 10 mg QHS PO ; Start 11/16/16 at 21:00 Sodium Chloride (NS) 1,000 ml @ 100 mls/hr Q10H IV ; Start 11/16/16 at 13:33 Ondansetron HCl (Zofran Inj) 4 mg Q6H PRN IV NAUSEA AND/OR VOMITING; Start at 14:00 Acetaminophen (Tylenol Tab) 650 mg Q6H PRN PO PAIN LEVEL 1-3 OR FEVER; Start at 14:00 Docusate Sodium (Colace) 100 mg Q12H PRN PO CONSTIPATION; Start 11/16/16 at 14: 00 Magnesium Hydroxide (Milk Of Mag) 30 ml DAILY PRN PO CONSTIPATION; Start at 14:00 Bisacodyl (Dulcolax Supp) 10 mg DAILY PRN AL CONSTIPATION; Start 11/16/16 at 14 :00 Pantoprazole (Protonix Tab) 40 mg DAILY@06 PO ; Start 11/17/16 at 06:00 Lorazepam 1 mg 1 mg Q6H PRN IV SEIZURES; Start 11/16/16 at 14:00 Ceftriaxone Sodium 50 ml @ 100 mls/hr Q24H IVPB ; Start 11/16/16 at 14:00 Levetiracetam 750 mg/Sodium Chloride 107.5 ml @ 430 mls/hr Q12 IVPB ; Start at 21:00 Magnesium Sulfate (Magnesium Sulfate 2 Gm/50 ml) 50 ml @ 25 mls/hr ONCE ONCE IVPB ; Start 11/16/16 at 15:00; Stop 11/16/16 at 16:59 Procedures Procedures PROCEDURE: CT brain without contrast CLINICAL INDICATION: Altered mental status TECHNIQUE: CT of the brain without contrast performed on a multidetector CT scanner, with multiplanar reformats. One or more of the following dose reduction techniques were used: Automated exposure control, adjustment in mA and / or kV according to patient size, use of iterative reconstructive technique. CTDIvol = 45 mGy; DLP = 720 mGy-cm. COMPARISON: CT brain 11/08/2016, MRI brain 05/05/2016 FINDINGS: Again demonstrated is a chronic infarct in the right middle cerebral artery territory, involving the frontal, insular and parietal regions with adjacent gliosis, chronic lacunar infarcts in the right basal ganglia, and chronic ischemic changes in the right thalamus, as well as small chronic lacunar infarcts in the left thalamus and left gracia radiata. No acute intracranial hemorrhage is identified. No extra-axial fluid collection is seen. There is no mass effect. No midline shift is identified. The ventricles and sulci are mildly enlarged compatible with volume loss. There are mild - moderate areas of hypodensity in the periventricular - deep white matter which are nonspecific but suggestive of chronic small vessel ischemic changes. Augustin-white differentiation is otherwise preserved. Again noted is a small dural ossification in the right frontal region. Osseous structures are unremarkable. Mastoid air cells and imaged paranasal sinuses grossly clear. IMPRESSION: 1. No evidence of acute intracranial pathology. 2. Chronic right middle cerebral artery territory infarct, chronic right basal ganglia, left thalamic and gracia radiata lacunar infarcts, and chronic ischemic changes in the right thalamus. 3. Mild to delete the volume loss, with mild - moderate chronic small vessel ischemic changes. RPTAT: VV .Néstor Antonio MD, Date Time Electronically viewed and signed by .Néstor Antonio MD, MD on 11/16/2016 08:32 RODRI NGUYEN Nov 16, 2016 15:51 RPTAT: VV .Néstor Antonio MD, MD Date Time Electronically viewed and signed by .Néstor Antonio MD, MD on 11/16/2016 08:32 RODRI NGUYEN Nov 16, 2016 15:51
[2016-11-16 16:12] VITALS: PULSE 111
[2016-11-16 16:21] VITALS: BP 155/99; RESP 20
[2016-11-16] MEDS: LORAZEPAM 2 MG INJ IV PRN (16:37)
[2016-11-16 20:00] VITALS: BP 175/92; RESP 19
[2016-11-16 20:01] VITALS: PULSE 110
[2016-11-16 22:00] VITALS: BP 161/95; PULSE 88
[2016-11-16] MEDS: ATORVASTATIN 10 MG TAB PO SCH (22:06)
[2016-11-16] MEDS: LEVETIRACETAM IV 750 MG in SOD CHLORIDE 0.9% 100 ML IVPB SCH (22:06)
[2016-11-17] VITALS (14 sets, daily range): BP systolic 131–168; BP diastolic 59–97; PULSE 70–110; RESP 16–22
[2016-11-17] MEDS: SOD CHLORIDE 0.9% 1,000 ML IV SCH ×3 (04:18→17:53)
[2016-11-17] MEDS: LORAZEPAM 2 MG INJ IV PRN ×3 (04:29→20:41)
[2016-11-17] MEDS: PANTOPRAZOLE (EC) 40 MG TAB PO SCH (04:44)
[2016-11-17] MEDS: CLOPIDOGREL 75 MG TAB PO SCH (09:00)
[2016-11-17] MEDS: DONEPEZIL 5 MG TAB PO SCH (09:00)
[2016-11-17] MEDS: AMLODIPINE 5 MG TAB PO SCH (09:00)
[2016-11-17] MEDS: LISINOPRIL 20 MG TAB PO SCH (09:00)
[2016-11-17 09:12] LABS: BASOPHILS % 0.3 % (0.0-2.0); HEMATOCRIT 30.3 % (37.0-47.0); HEMOGLOBIN 9.7 g/dl (12.0-16.0); LYMPHOCYTES # 1.1 10^3/ul (0.8-2.9); LYMPHOCYTES % 14.6 % (15.0-51.0); MEAN CORPUSCULAR HEMOGLOBIN 28.7 pg (29.0-33.0); MEAN CORPUSCULAR VOLUME 89.6 fl (82.0-101.0); MEAN PLATELET VOLUME 10.1 fl (7.4-10.4); MONOCYTE # 0.7 10^3/ul (0.3-0.9); MONOCYTES % 8.3 % (0.0-11.0); NEUTROPHILS % 76.3 % (39.0-77.0); PLATELET COUNT 238 10^3/UL (140-415); RED BLOOD COUNT 3.38 10^6/ul (4.20-5.40); RED CELL DISTRIBUTION WIDTH 13.1 % (11.5-14.5); WHITE BLOOD COUNT 7.8 10^3/ul (4.8-10.8)
[2016-11-17 09:37] LABS: ALBUMIN 3.9 g/dl (3.3-4.9); ALBUMIN/GLOBULIN RATIO 1.34; BILIRUBIN,INDIRECT 0.6 mg/dl (0-1.1); BILIRUBIN,TOTAL 0.6 mg/dl (0.2-1.3); CALCIUM 9.5 mg/dl (8.4-10.2); CHOL/HDL RATIO 3.1 RATIO; CREATININE 0.61 mg/dl (0.44-1.00); MAGNESIUM 1.9 mg/dl (1.7-2.5); POTASSIUM 3.7 mmol/L (3.5-5.1); TOTAL PROTEIN 6.8 g/dl (6.1-8.1)
[2016-11-17] MEDS ORDERED: MAGNESIUM SULFATE 1 GM/D5W 100 ML IVPB ONE (10:30)
[2016-11-17] MEDS ORDERED: POTASSIUM CHLORIDE 20 MEQ in SOD CHLORIDE 0.9% 100 ML IVPB ONE (10:30)
[2016-11-17] MEDS: LEVETIRACETAM IV 750 MG in SOD CHLORIDE 0.9% 100 ML IVPB SCH ×2 (10:59→20:41)
[2016-11-17] MEDS ORDERED: LACOSAMIDE (100 MG/10 ML PO SYR) PO ONE (11:00)
--- NOTE | 2016-11-17 11:00 | PRO ---
DATE OF PROCEDURE: 11/16/2016 INDICATION: This is a 66-year-old woman who had Past History of previous stroke, dementia, and seizure disorder, who was admitted with tremors of the left upper extremity. MEDICATIONS: Donepezil, Keppra. TECHNIQUE: Utilizing a 16 channel EEG machine, cap scalp electrodes were applied in accordance with the International 10/20 system. Scalp to scalp and scalp to ear montages were displayed. Electrical impedances were measured and reported. DESCRIPTION OF PROCEDURE: During a resting state posterior dominant rhythm of about 7-8 hertz were seen bihemispherically. Photic stimulation had a good response. Hyperventilation was not performed. There was no focal lateralizing or epileptiform discharges identified. INTERPRETATION: This is a mildly abnormal EEG due to presence of mild generalized bihemispheric slowing without any epileptiform activity. Please correlate these findings with the patient's clinical picture. Dictated By: Eliza Valladares MD /[email or web address]/davon /Document#: [id number]
--- NOTE | 2016-11-17 11:03 | CONS ---
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 EEG showed slowing Continue on Keppra 750 mg q12h Add Vimpat for suspected partial seizures starting dose 50 mg q12h will increase as tolerated speech/swallow evaluation pending infectious work up Problems: Consultation Date/Type/Reason Admit Date/Time Nov 16, 2016 at 13:31 Date of Consultation: Nov 16, 2016 Type of Consultation: Neurology Reason for Consultation seizure? movement do Referring Provider: RODRI NGUYEN Hx of Present Illness 66 year old female with history of Right MCA CVA, seizure d/p?, hemiballismus movement disorder LUE involuntary movements tx from boarding care with tremors, starting inability to communicate, partial complex seizure? She was given ativan and loaded w Keppra 1 g. EEG showed no seizures mild encephalopathy. Repeat MRI pending to eval for new CVA. Unclear if patient is compliant with her meds. Subjective hx not possible: pt non-verbal Neurologic: seizure (Observed) Past Surgical History Past Surgical Hx: no surgical history Social History Alcohol Use: none Smoking Status: Unknown if ever smoked Drug Use: none Exam/Review of Systems Vital Signs Vitals Vital Signs Date Time Temp Pulse Resp B/P Pulse Ox O2 Delivery O2 Flow Rate FiO2 11/17/16 08:08 70 11/17/16 08:08 99.8 18 159/92 90 11/16/16 22:00 Nasal Cannula Intake and Output 11/16/16 11/16/16 11/17/16 15:00 23:00 07:00 Intake Total 100 ml 1000 ml Balance 100 ml 1000 ml Exam difficult to arouse unable to follow commands left facial twitching, left arm jerking CN: Carlota DUCKWORTH's intact, left facial droop Motor: withdraws in all extremities to noxious stimuli uncooperative w exam Results Result Diagram: 11/17/16 0852 11/17/16 0852 Results 24 hrs Laboratory Tests Test 11/17/16 08:52 White Blood Count 7.8 # Red Blood Count 3.38 L Hemoglobin 9.7 L Hematocrit 30.3 L Mean Corpuscular Volume 89.6 Mean Corpuscular Hemoglobin 28.7 L Mean Corpuscular Hemoglobin Concent 32.0 Red Cell Distribution Width 13.1 Platelet Count 238 Mean Platelet Volume 10.1 Neutrophils % 76.3 Lymphocytes % 14.6 L Monocytes % 8.3 Eosinophils % 0.0 Basophils % 0.3 Nucleated Red Blood Cells % 0.0 Neutrophils # (Manual) 6 Lymphocytes # 1.1 Monocytes # 0.7 Eosinophils # 0.0 Basophils # 0.0 Nucleated Red Blood Cells # 0.0 Sodium Level 138 Potassium Level 3.7 Chloride Level 99 Carbon Dioxide Level 25 Anion Gap 18 H Blood Urea Nitrogen 8 # Creatinine 0.61 Glucose Level 73 Calcium Level 9.5 Magnesium Level 1.9 Total Bilirubin 0.6 Direct Bilirubin 0.00 Indirect Bilirubin 0.6 Aspartate Amino Transf (AST/SGOT) 44 Alanine Aminotransferase (ALT/SGPT) 40 Alkaline Phosphatase 64 Total Protein 6.8 Albumin 3.9 Globulin 2.90 Albumin/Globulin Ratio 1.34 Triglycerides Level 76 Cholesterol Level 181 LDL Cholesterol, Calculated 108 HDL Cholesterol 58 Cholesterol/HDL Ratio 3.1 Medications Medications Current Medications Amlodipine Besylate (Norvasc) 5 mg DAILY PO ; Start 11/17/16 at 09:00 Clopidogrel Bisulfate (plaVIX) 75 mg DAILY PO ; Start 11/17/16 at 09:00 Donepezil HCl (Aricept) 5 mg DAILY PO ; Start 11/17/16 at 09:00 Lisinopril (Zestril) 20 mg DAILY PO ; Start 11/17/16 at 09:00 Ondansetron HCl (Zofran Tab) 4 mg Q8H PRN PO NAUSEA AND/OR VOMITING; Start at 14:00 Atorvastatin Calcium 10 mg 10 mg QHS PO ; Start 11/16/16 at 21:00 Sodium Chloride (NS) 1,000 ml @ 100 mls/hr Q10H IV Last administered on t 09:33; Admin Dose 100 MLS/HR; Start 11/16/16 at 13:33 Ondansetron HCl (Zofran Inj) 4 mg Q6H PRN IV NAUSEA AND/OR VOMITING; Start at 14:00 Acetaminophen (Tylenol Tab) 650 mg Q6H PRN PO PAIN LEVEL 1-3 OR FEVER; Start at 14:00 Docusate Sodium (Colace) 100 mg Q12H PRN PO CONSTIPATION; Start 11/16/16 at 14: 00 Magnesium Hydroxide (Milk Of Mag) 30 ml DAILY PRN PO CONSTIPATION; Start at 14:00 Bisacodyl (Dulcolax Supp) 10 mg DAILY PRN [place] CONSTIPATION; Start 11/16/16 at 14 :00 Pantoprazole (Protonix Tab) 40 mg DAILY@06 PO ; Start 11/17/16 at 06:00 Lorazepam 1 mg 1 mg Q6H PRN IV SEIZURES Last administered on 11/17/16 04:29; Admin Dose 1 MG; Start 11/16/16 at 14:00 Ceftriaxone Sodium 50 ml @ 100 mls/hr Q24H IVPB ; Start 11/16/16 at 14:00 Levetiracetam/ Sodium Chloride (Keppra Iv/NS) 107.5 ml @ 430 mls/hr Q12 IVPB Last administered on 11/16/16 22:06; Admin Dose 430 MLS/HR; Start 11/16/16 at 21:00 Hydralazine HCl 10 mg 10 mg Q8H PRN IV ELEVATED BLOOD PRESSURE; Start 11/16/16 at 17:00 Potassium Chloride 20 meq/ Sodium Chloride 110 ml @ 55 mls/hr ONCE ONCE IVPB ; Start 11/17/16 at 10:30; Stop 11/17/16 at 12:29 Magnesium Sulfate/ Dextrose (Magnesium Sulfate 1 Gm/D5W) 100 ml @ 100 mls/hr ONCE ONCE IVPB ; Start 11/17/16 at 10:30; Stop 11/17/16 at 11:29 RASHAD COLE MD Nov 17, 2016 11:02
--- NOTE | 2016-11-17 11:13 | PN ---
Date/Time of Note Date/Time of Note DATE: 11/17/16 TIME: 10:58 Assessment/Plan VTE Prophylaxis VTE Prophylaxis Intervention: SCD's Lines/Catheters IV Catheter Type (from Nrs): Peripheral IV Assessment/Plan Assessment/Plan 66-year-old female with: 1. Left upper extremity tremors, involuntary movements, patient with also seizure disorder. Still with involuntary jerking movement of LUE while awake and talking.. Per Neuro likely to be movement disorder but cannot exclude partial seizures ..CT head noncontrast only shows old CVAs, EEG no seizure activity, MRI brain pending. Continue current Keppra dosing, Vimpat added and trial of Klonopin... Appreciate Neurology eval and recommendations. 2. Multiple old CVAs: Continue antiplatelet and statin once patient able to take p.o. Blood pressure control. Repeat MRI brain pending 3. Dementia, likely vascular dementia, alert and oriented 1-2 at baseline. Continue Aricept once patient able to take p.o. 4. Hypertension: Controlled, continue home medications. 5. Hyperlipidemia and previous CVA, continue statin therapy once able to take p.o. 6. Positive UA, possible recurrent UTI, urine culture and blood cultures pending, continue Rocephin while awaiting cultures. Prophylaxis: Seizure precautions, SCDs for DVT prophylaxis, Protonix for GI prophylaxis Disposition: MRI brain pending. Subjective 24 Hr Interval Summary Free Text/Dictation Patient with actual movement disorder looks like with jerking of the left upper extremity especially while awake Otherwise more awake and answering questions Per Neurology, no seizure activities on EEG Exam/Review of Systems Vital Signs Vitals Vital Signs Date Time Temp Pulse Resp B/P Pulse Ox O2 Delivery O2 Flow Rate FiO2 11/17/16 08:08 70 11/17/16 08:08 99.8 18 159/92 90 11/16/16 22:00 Nasal Cannula Intake and Output 11/16/16 11/16/16 11/17/16 15:00 23:00 07:00 Intake Total 100 ml 1000 ml Balance 100 ml 1000 ml Exam Constitutional: alert, oriented (1), other (easily arousable and answering question while LUE with uncontrollable movement ) Respiratory: clear to auscultation, normal air movement Cardiovascular: nl pulses, regular rate and rhythm Gastrointestinal: non-tender, soft Musculoskeletal: nl extremities to inspection Extremities: normal pulses, other (no edema, clubbing or cyanosis ) 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, lethargic, other (LUE unvoluntary movements ) Results Result Diagram: 11/17/1652 11/17/16 0852 Results 24 hrs Laboratory Tests Test 11/17/16 08:52 White Blood Count 7.8 # Red Blood Count 3.38 L Hemoglobin 9.7 L Hematocrit 30.3 L Mean Corpuscular Volume 89.6 Mean Corpuscular Hemoglobin 28.7 L Mean Corpuscular Hemoglobin Concent 32.0 Red Cell Distribution Width 13.1 Platelet Count 238 Mean Platelet Volume 10.1 Neutrophils % 76.3 Lymphocytes % 14.6 L Monocytes % 8.3 Eosinophils % 0.0 Basophils % 0.3 Nucleated Red Blood Cells % 0.0 Neutrophils # (Manual) 6 Lymphocytes # 1.1 Monocytes # 0.7 Eosinophils # 0.0 Basophils # 0.0 Nucleated Red Blood Cells # 0.0 Sodium Level 138 Potassium Level 3.7 Chloride Level 99 Carbon Dioxide Level 25 Anion Gap 18 H Blood Urea Nitrogen 8 # Creatinine 0.61 Glucose Level 73 Calcium Level 9.5 Magnesium Level 1.9 Total Bilirubin 0.6 Direct Bilirubin 0.00 Indirect Bilirubin 0.6 Aspartate Amino Transf (AST/SGOT) 44 Alanine Aminotransferase (ALT/SGPT) 40 Alkaline Phosphatase 64 Total Protein 6.8 Albumin 3.9 Globulin 2.90 Albumin/Globulin Ratio 1.34 Triglycerides Level 76 Cholesterol Level 181 LDL Cholesterol, Calculated 108 HDL Cholesterol 58 Cholesterol/HDL Ratio 3.1 Medications Medications Current Medications Amlodipine Besylate (Norvasc) 5 mg DAILY PO ; Start 11/17/16 at 09:00 Clopidogrel Bisulfate (plaVIX) 75 mg DAILY PO ; Start 11/17/16 at 09:00 Donepezil HCl (Aricept) 5 mg DAILY PO ; Start 11/17/16 at 09:00 Lisinopril (Zestril) 20 mg DAILY PO ; Start 11/17/16 at 09:00 Ondansetron HCl (Zofran Tab) 4 mg Q8H PRN PO NAUSEA AND/OR VOMITING; Start at 14:00 Atorvastatin Calcium 10 mg 10 mg QHS PO ; Start 11/16/16 at 21:00 Sodium Chloride (NS) 1,000 ml @ 100 mls/hr Q10H IV Last administered on 09:33; Admin Dose 100 MLS/HR; Start 11/16/16 at 13:33 Ondansetron HCl (Zofran Inj) 4 mg Q6H PRN IV NAUSEA AND/OR VOMITING; Start at 14:00 Acetaminophen (Tylenol Tab) 650 mg Q6H PRN PO PAIN LEVEL 1-3 OR FEVER; Start at 14:00 Docusate Sodium (Colace) 100 mg Q12H PRN PO CONSTIPATION; Start 11/16/16 at 14: 00 Magnesium Hydroxide (Milk Of Mag) 30 ml DAILY PRN PO CONSTIPATION; Start at 14:00 Bisacodyl (Dulcolax Supp) 10 mg DAILY PRN [place] CONSTIPATION; Start 11/16/16 at 14 :00 Pantoprazole (Protonix Tab) 40 mg DAILY@06 PO ; Start 11/17/16 at 06:00 Lorazepam 1 mg 1 mg Q6H PRN IV SEIZURES Last administered on 11/17/16 04:29; Admin Dose 1 MG; Start 11/16/16 at 14:00 Ceftriaxone Sodium 50 ml @ 100 mls/hr Q24H IVPB ; Start 11/16/16 at 14:00 Levetiracetam/ Sodium Chloride (Keppra Iv/NS) 107.5 ml @ 430 mls/hr Q12 IVPB Last administered on 11/16/16 22:06; Admin Dose 430 MLS/HR; Start 11/16/16 at 21:00 Hydralazine HCl 10 mg 10 mg Q8H PRN IV ELEVATED BLOOD PRESSURE; Start 11/16/16 at 17:00 Potassium Chloride 20 meq/ Sodium Chloride 110 ml @ 55 mls/hr ONCE ONCE IVPB ; Start 11/17/16 at 10:30; Stop 11/17/16 at 12:29 Magnesium Sulfate/ Dextrose (Magnesium Sulfate 1 Gm/D5W) 100 ml @ 100 mls/hr ONCE ONCE IVPB ; Start 11/17/16 at 10:30; Stop 11/17/16 at 11:29 RODRI NGUYEN Nov 17, 2016 11:12
[2016-11-17] MEDS: clonAZEPAM 0.5 MG TAB PO SCH ×2 (11:30→20:46)
[2016-11-17] MEDS: CEFTRIAXONE 1 GM/50 ML (PMX) 50 ML IVPB SCH (17:53)
[2016-11-17] MEDS: ATORVASTATIN 10 MG TAB PO SCH (20:47)
[2016-11-18] VITALS (18 sets, daily range): BP systolic 120–215; BP diastolic 71–143; PULSE 62–125; RESP 17–22
[2016-11-18] MEDS: PANTOPRAZOLE (EC) 40 MG TAB PO SCH (01:39)
[2016-11-18] MEDS: LORAZEPAM 2 MG INJ IV PRN ×3 (03:28→21:14)
[2016-11-18] MEDS: SOD CHLORIDE 0.9% 1,000 ML IV SCH ×2 (04:56→15:51)
[2016-11-18 07:24] LABS: BASOPHILS % 0.4 % (0.0-2.0); EOSINOPHILS % 0.4 % (0.0-7.0); HEMATOCRIT 34.1 % (37.0-47.0); HEMOGLOBIN 10.9 g/dl (12.0-16.0); LYMPHOCYTES # 1.7 10^3/ul (0.8-2.9); LYMPHOCYTES % 21.9 % (15.0-51.0); MEAN CORPUSCULAR HEMOGLOBIN 28.9 pg (29.0-33.0); MEAN CORPUSCULAR VOLUME 90.5 fl (82.0-101.0); MEAN PLATELET VOLUME 10.1 fl (7.4-10.4); MONOCYTE # 0.9 10^3/ul (0.3-0.9); NEUTROPHILS % 66.2 % (39.0-77.0); PLATELET COUNT 270 10^3/UL (140-415); RED BLOOD COUNT 3.77 10^6/ul (4.20-5.40); RED CELL DISTRIBUTION WIDTH 12.7 % (11.5-14.5); WHITE BLOOD COUNT 7.9 10^3/ul (4.8-10.8)
[2016-11-18 07:44] LABS: MAGNESIUM 2.2 mg/dl (1.7-2.5); PHOSPHORUS 2.6 mg/dl (2.5-4.9)
[2016-11-18 07:53] LABS: CALCIUM 9.9 mg/dl (8.4-10.2); CREATININE 0.66 mg/dl (0.44-1.00); POTASSIUM 3.9 mmol/L (3.5-5.1)
[2016-11-18] MEDS: LEVETIRACETAM IV 750 MG in SOD CHLORIDE 0.9% 100 ML IVPB SCH (08:46)
[2016-11-18] MEDS: CLOPIDOGREL 75 MG TAB PO SCH (09:00)
[2016-11-18] MEDS: clonAZEPAM 0.5 MG TAB PO SCH ×3 (09:00→21:40)
[2016-11-18] MEDS: DONEPEZIL 5 MG TAB PO SCH (09:00)
[2016-11-18] MEDS: LISINOPRIL 20 MG TAB PO SCH ×2 (09:00→21:51)
[2016-11-18] MEDS: AMLODIPINE 5 MG TAB PO SCH ×2 (09:00→21:51)
--- NOTE | 2016-11-18 12:52 | PN ---
Date/Time of Note Date/Time of Note DATE: 11/18/16 TIME: 12:43 Assessment/Plan VTE Prophylaxis VTE Prophylaxis Intervention: SCD's Lines/Catheters IV Catheter Type (from Nrs): Peripheral IV Assessment/Plan Assessment/Plan 66-year-old female with: 1. Left > right upper extremity tremors, involuntary movements, patient with also seizure disorder. Still with involuntary jerking movement of LUE while awake and talking. Restraints had to be put on overnight per patient and family request. Per Neuro likely to be movement disorder but cannot exclude partial seizures ..CT head noncontrast only shows old CVAs, EEG no seizure activity, MRI brain still pending. Continue current Keppra dosing, Vimpat added and trial of Klonopin. NG tube will be placed today as patient unable to take p.o. so far. Appreciate Neurology eval and recommendations. 2. Multiple old CVAs: Continue antiplatelet and statin once patient able to take p.o. Blood pressure control. Repeat MRI brain pending 3. Dementia, likely vascular dementia, alert and oriented 1-2 at baseline. Continue Aricept once patient able to take p.o. 4. Hypertension: Controlled, continue home medications. 5. Hyperlipidemia and previous CVA, continue statin therapy once able to take p.o. 6. Positive UA, possible recurrent UTI, blood cultures no growth to date, urine culture with gram-negative rods but also few colonies of staph aureus. Sensitivities still pending. Continue Rocephin while awaiting final sensitivities. Prophylaxis: Seizure precautions, SCDs for DVT prophylaxis, Protonix for GI prophylaxis Disposition: MRI brain pending, NG tube being placed for access for oral medication. Restraints in place. Subjective 24 Hr Interval Summary Free Text/Dictation Patient remains lethargic, difficult to arouse this morning, NG tube will be placed for additional oral medication she needs. MRI brain still pending. Neurology following We had to place restraints per patient request overnight due to significant involuntary movement of her left upper extremity causing injury to her chest area and her lower lip. Exam/Review of Systems Vital Signs Vitals Vital Signs Date Time Temp Pulse Resp B/P Pulse Ox O2 Delivery O2 Flow Rate FiO2 11/18/16 12:09 98.7 111 18 171/97 92 11/17/16 08:00 Nasal Cannula 2.0 Intake and Output 11/17/16 11/17/16 11/18/16 15:00 23:00 07:00 Intake Total 1000 ml 457 ml 980 ml Balance 1000 ml 457 ml 980 ml Exam Constitutional: non-verbal, other (Lethargic and still with involuntary movement of the left upper extremity more so than the right) Respiratory: clear to auscultation, normal air movement Cardiovascular: nl pulses, regular rate and rhythm Gastrointestinal: non-tender, soft Musculoskeletal: nl extremities to inspection Extremities: normal pulses, other (No edema, clubbing or cyanosis) 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, lethargic, other (Involuntary movements upper extremity left>>right) Results Result Diagram: 11/18/16 0710 11/18/16 0710 Results 24 hrs Laboratory Tests Test 11/18/16 07:10 White Blood Count 7.9 Red Blood Count 3.77 L Hemoglobin 10.9 L Hematocrit 34.1 L Mean Corpuscular Volume 90.5 Mean Corpuscular Hemoglobin 28.9 L Mean Corpuscular Hemoglobin Concent 32.0 Red Cell Distribution Width 12.7 Platelet Count 270 Mean Platelet Volume 10.1 Neutrophils % 66.2 Lymphocytes % 21.9 Monocytes % 11.0 Eosinophils % 0.4 Basophils % 0.4 Nucleated Red Blood Cells % 0.0 Neutrophils # (Manual) 5 Lymphocytes # 1.7 Monocytes # 0.9 Eosinophils # 0.0 Basophils # 0.0 Nucleated Red Blood Cells # 0.0 Sodium Level 135 Potassium Level 3.9 Chloride Level 102 Carbon Dioxide Level 23 Anion Gap 14 Blood Urea Nitrogen 12 Creatinine 0.66 Glucose Level 59 #L Calcium Level 9.9 Phosphorus Level 2.6 Magnesium Level 2.2 Medications Medications Current Medications Amlodipine Besylate (Norvasc) 5 mg DAILY PO ; Start 11/17/16 at 09:00 Clopidogrel Bisulfate (plaVIX) 75 mg DAILY PO ; Start 11/17/16 at 09:00 Donepezil HCl (Aricept) 5 mg DAILY PO ; Start 11/17/16 at 09:00 Lisinopril (Zestril) 20 mg DAILY PO ; Start 11/17/16 at 09:00 Ondansetron HCl (Zofran Tab) 4 mg Q8H PRN PO NAUSEA AND/OR VOMITING; Start at 14:00 Atorvastatin Calcium 10 mg 10 mg QHS PO ; Start 11/16/16 at 21:00 Sodium Chloride (NS) 1,000 ml @ 100 mls/hr Q10H IV Last administered on 04:56; Admin Dose 100 MLS/HR; Start 11/16/16 at 13:33 Ondansetron HCl (Zofran Inj) 4 mg Q6H PRN IV NAUSEA AND/OR VOMITING; Start at 14:00 Acetaminophen (Tylenol Tab) 650 mg Q6H PRN PO PAIN LEVEL 1-3 OR FEVER; Start at 14:00 Docusate Sodium (Colace) 100 mg Q12H PRN PO CONSTIPATION; Start 11/16/16 at 14: 00 Magnesium Hydroxide (Milk Of Mag) 30 ml DAILY PRN PO CONSTIPATION; Start at 14:00 Bisacodyl (Dulcolax Supp) 10 mg DAILY PRN [place] CONSTIPATION; Start 11/16/16 at 14 :00 Pantoprazole (Protonix Tab) 40 mg DAILY@06 PO ; Start 11/17/16 at 06:00 Lorazepam 1 mg 1 mg Q6H PRN IV SEIZURES Last administered on 11/18/16 03:28; Admin Dose 1 MG; Start 11/16/16 at 14:00 Ceftriaxone Sodium (Rocephin) 50 ml @ 100 mls/hr Q24H IVPB Last administered on 11/17/16 17:53; Admin Dose 100 MLS/HR; Start 11/16/16 at 14:00 Hydralazine HCl (Apresoline) 10 mg Q8H PRN IV ELEVATED BLOOD PRESSURE; Start at 17:00 Clonazepam (Klonopin) 1 mg BID PO ; Start 11/17/16 at 11:30 RODRI NGUYEN Nov 18, 2016 12:52
[2016-11-18] MEDS ORDERED: DEXTROSE 50% 50 ML SYRINGE IV PRN (13:00)
[2016-11-18] MEDS ORDERED: GLUCAGON 1 MG INJ IM PRN (13:00)
[2016-11-18] MEDS ORDERED: GLUCOSE GEL 15 GRAM TUBE BUCCAL PRN (13:00)
[2016-11-18] MEDS ORDERED: GLUCOSE GEL 15 GRAM TUBE PO PRN ×2 (13:00)
[2016-11-18] MEDS: DEXTROSE 50% 50 ML SYRINGE IV PRN ×2 (13:30→18:34)
[2016-11-18] MEDS: CEFTRIAXONE 1 GM/50 ML (PMX) 50 ML IVPB SCH (14:32)
--- NOTE | 2016-11-18 14:43 | CONS ---
Date/Time of Note Date/Time of Note DATE: 11/18/16 TIME: 14:39 Consult Date/Type/Reason Admit Date/Time Nov 16, 2016 at 13:31 Initial Consult Date 11/16/16 Type of Consultation: Neurology Reason for Consultation evaluation for involuntary movements Ordering Provider: RODRI NGUYEN Subjective unable to tolerate PO NGT placed persistent involuntary left face and arm movements no improvement w Keppra Objective Vital Signs Date Time Temp Pulse Resp B/P Pulse Ox O2 Delivery O2 Flow Rate FiO2 11/18/16 12:09 98.7 111 18 171/97 92 11/17/16 08:00 Nasal Cannula 2.0 Intake and Output 11/17/16 11/17/16 11/18/16 14:59 22:59 06:59 Intake Total 1000 ml 457 ml 980 ml Balance 1000 ml 457 ml 980 ml Exam difficult to arouse unable to follow commands left facial twitching, left arm jerking involuntary movements CN: GUCCI, Doll's intact, left facial droop Motor: withdraws in all extremities to noxious stimuli uncooperative w exam Results/Medications Result Diagram: 11/18/16 0710 11/18/16 0710 Results 24 hrs Laboratory Tests Test 11/18/16 07:10 11/18/16 13:14 11/18/16 13:50 White Blood Count 7.9 Red Blood Count 3.77 L Hemoglobin 10.9 L Hematocrit 34.1 L Mean Corpuscular Volume 90.5 Mean Corpuscular Hemoglobin 28.9 L Mean Corpuscular Hemoglobin Concent 32.0 Red Cell Distribution Width 12.7 Platelet Count 270 Mean Platelet Volume 10.1 Neutrophils % 66.2 Lymphocytes % 21.9 Monocytes % 11.0 Eosinophils % 0.4 Basophils % 0.4 Nucleated Red Blood Cells % 0.0 Neutrophils # (Manual) 5 Lymphocytes # 1.7 Monocytes # 0.9 Eosinophils # 0.0 Basophils # 0.0 Nucleated Red Blood Cells # 0.0 Sodium Level 135 Potassium Level 3.9 Chloride Level 102 Carbon Dioxide Level 23 Anion Gap 14 Blood Urea Nitrogen 12 Creatinine 0.66 Glucose Level 59 #L Calcium Level 9.9 Phosphorus Level 2.6 Magnesium Level 2.2 Bedside Glucose 59 L 110 Medications Current Medications Amlodipine Besylate (Norvasc) 5 mg DAILY PO ; Start 11/17/16 at 09:00 Clopidogrel Bisulfate (plaVIX) 75 mg DAILY PO ; Start 11/17/16 at 09:00 Donepezil HCl (Aricept) 5 mg DAILY PO ; Start 11/17/16 at 09:00 Lisinopril (Zestril) 20 mg DAILY PO ; Start 11/17/16 at 09:00 Ondansetron HCl (Zofran Tab) 4 mg Q8H PRN PO NAUSEA AND/OR VOMITING; Start at 14:00 Atorvastatin Calcium 10 mg 10 mg QHS PO ; Start 11/16/16 at 21:00 Sodium Chloride (NS) 1,000 ml @ 100 mls/hr Q10H IV Last administered on 04:56; Admin Dose 100 MLS/HR; Start 11/16/16 at 13:33 Ondansetron HCl (Zofran Inj) 4 mg Q6H PRN IV NAUSEA AND/OR VOMITING; Start at 14:00 Acetaminophen (Tylenol Tab) 650 mg Q6H PRN PO PAIN LEVEL 1-3 OR FEVER; Start at 14:00 Docusate Sodium (Colace) 100 mg Q12H PRN PO CONSTIPATION; Start 11/16/16 at 14: 00 Magnesium Hydroxide (Milk Of Mag) 30 ml DAILY PRN PO CONSTIPATION; Start at 14:00 Bisacodyl (Dulcolax Supp) 10 mg DAILY PRN [place] CONSTIPATION; Start 11/16/16 at 14 :00 Pantoprazole (Protonix Tab) 40 mg DAILY@06 PO ; Start 11/17/16 at 06:00 Lorazepam 1 mg 1 mg Q6H PRN IV SEIZURES Last administered on 11/18/16 03:28; Admin Dose 1 MG; Start 11/16/16 at 14:00 Ceftriaxone Sodium (Rocephin) 50 ml @ 100 mls/hr Q24H IVPB Last administered on 11/18/16 14:32; Admin Dose 100 MLS/HR; Start 11/16/16 at 14:00 Hydralazine HCl (Apresoline) 10 mg Q8H PRN IV ELEVATED BLOOD PRESSURE; Start at 17:00 Clonazepam (Klonopin) 1 mg BID PO ; Start 11/17/16 at 11:30 Diagnostic Test (Pha) (Accu-Chek) 1 ea 02 XX ; Start 11/19/16 at 02:00 Miscellaneous Information 1 ea NOTE XX ; Start 11/18/16 at 13:00 Glucose (Glutose) 15 gm Q15M PRN PO DECREASED GLUCOSE; Start 11/18/16 at 13:00 Glucose (Glutose) 22.5 gm Q15M PRN PO DECREASED GLUCOSE; Start 11/18/16 at 13: 00 Dextrose (D50w Syringe) 25 ml Q15M PRN IV DECREASED GLUCOSE Last administered on 11/18/16t 13:30; Admin Dose 25 ML; Start 11/18/16 at 13:00 Dextrose (D50w Syringe) 50 ml Q15M PRN IV DECREASED GLUCOSE; Start 11/18/16 at 13:00 Glucagon (Glucagen) 1 mg Q15M PRN IM DECREASED GLUCOSE; Start 11/18/16 at 13:00 Glucose (Glutose) 15 gm Q15M PRN BUCCAL DECREASED GLUCOSE; Start 11/18/16 at 13 :00 Assessment/Plan Chief Complaint/Hosp Course 66 year old female with 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 EEG showed slowing Recommend: d/c Charlespp, unclear unlikely these are seizures suspect more of a movement disorder , hemiballismus started Klonopin 1 mg BID sepsis work up NGT, speech/swallow evaluation Problems: RASHAD COLE MD Nov 18, 2016 14:43
[2016-11-18] MEDS: hydrALAzine 20 MG INJ IV PRN (16:41)
[2016-11-18] MEDS: ATORVASTATIN 10 MG TAB PO SCH (20:43)
--- NOTE | 2016-11-18 22:47 | RADRPT ---
PROCEDURE: XR Chest. CLINICAL INDICATION: Check nasogastric tube position. TECHNIQUE: Single frontal view. COMPARISON: 11/16/2016. FINDINGS: There is a nasogastric tube with the tip in the stomach. The lungs are clear. The heart size is normal. There is calcification in the aorta consistent with atherosclerosis. There is no pleural effusion. There is no pneumothorax. IMPRESSION: 1. Nasogastric tube tip in the stomach. 2. Atherosclerosis. 3. Otherwise normal chest radiograph. RPTAT: QQ .Landon Kramer MD, MD Date Time Electronically viewed and signed by .Landon Kramer MD, MD on 11/18/2016 22:47 .R/
[2016-11-19] VITALS (20 sets, daily range): BP systolic 109–176; BP diastolic 56–98; PULSE 75–122; RESP 12–20
[2016-11-19] MEDS: hydrALAzine 20 MG INJ IV PRN (00:11)
[2016-11-19] MEDS: SOD CHLORIDE 0.9% 1,000 ML IV SCH ×3 (01:40→20:51)
[2016-11-19] MEDS ORDERED: ACCU-CHEK XX SCH (02:00)
[2016-11-19] MEDS ORDERED: INSULIN ASPART [NOVOLOG] 3 ML PEN SC SCH (06:00)
[2016-11-19] MEDS: Insulin NOVOLOG SS MILD Algorithm (NPO/TPN/ENTERAL FEEDS) SC SCH ×3 (06:00→17:39)
[2016-11-19] MEDS: PANTOPRAZOLE (EC) 40 MG TAB PO SCH (06:00)
[2016-11-19] MEDS ORDERED: MAGNESIUM HYDROXIDE 30ML CUP NGT PRN (06:30)
[2016-11-19 08:15] LABS: BASOPHILS % 0.4 % (0.0-2.0); EOSINOPHILS % 0.3 % (0.0-7.0); HEMATOCRIT 34.7 % (37.0-47.0); HEMOGLOBIN 11.6 g/dl (12.0-16.0); LYMPHOCYTES # 1.8 10^3/ul (0.8-2.9); LYMPHOCYTES % 16.9 % (15.0-51.0); MEAN CORPUSCULAR HEMOGLOBIN 29.6 pg (29.0-33.0); MEAN CORPUSCULAR HGB CONC 33.4 g/dl (32.0-37.0); MEAN CORPUSCULAR VOLUME 88.5 fl (82.0-101.0); MEAN PLATELET VOLUME 10.1 fl (7.4-10.4); MONOCYTE # 1.3 10^3/ul (0.3-0.9); MONOCYTES % 12.3 % (0.0-11.0); NEUTROPHILS % 69.9 % (39.0-77.0); PLATELET COUNT 359 10^3/UL (140-415); RED BLOOD COUNT 3.92 10^6/ul (4.20-5.40); RED CELL DISTRIBUTION WIDTH 12.7 % (11.5-14.5); WHITE BLOOD COUNT 10.9 10^3/ul (4.8-10.8)
[2016-11-19 08:40] LABS: ALBUMIN 3.7 g/dl (3.3-4.9); ALBUMIN/GLOBULIN RATIO 1.08; BILIRUBIN,INDIRECT 0.7 mg/dl (0-1.1); BILIRUBIN,TOTAL 0.7 mg/dl (0.2-1.3); CALCIUM 10.2 mg/dl (8.4-10.2); CREATININE 0.55 mg/dl (0.44-1.00); TOTAL PROTEIN 7.1 g/dl (6.1-8.1)
[2016-11-19 08:50] LABS: MAGNESIUM 1.9 mg/dl (1.7-2.5); PHOSPHORUS 2.4 mg/dl (2.5-4.9)
[2016-11-19] MEDS: LISINOPRIL 20 MG TAB NGT SCH (11:20)
[2016-11-19] MEDS: CLOPIDOGREL 75 MG TAB NGT SCH (11:21)
[2016-11-19] MEDS: AMLODIPINE 5 MG TAB NGT SCH (11:21)
[2016-11-19] MEDS: clonAZEPAM 0.5 MG TAB NGT SCH ×2 (11:21→20:49)
[2016-11-19] MEDS: DONEPEZIL 5 MG TAB NGT SCH (11:22)
--- NOTE | 2016-11-19 11:57 | CONS ---
Date/Time of Note Date/Time of Note DATE: 11/19/16 TIME: 11:54 Consult Date/Type/Reason Admit Date/Time Nov 16, 2016 at 13:31 Initial Consult Date 11/16/16 Type of Consultation: Neurology Reason for Consultation involuntary jerking left arm hemiballismus Ordering Provider: RODRI NGUYEN Subjective awake and alert NGT for feeds persistent involuntary movement left arm left face improved Objective Vital Signs Date Time Temp Pulse Resp B/P Pulse Ox O2 Delivery O2 Flow Rate FiO2 11/19/16 11:41 98.0 124 18 133/79 100 11/19/16 06:00 Nasal Cannula 3.0 Intake and Output 11/18/16 11/18/16 11/19/16 15:00 23:00 07:00 Intake Total 0 ml Balance 0 ml Exam awake and alert unable to assess orientation unable to follow commands poorly cooperative requesting to sleep left facial twitching improving, left arm jerking involuntary movements appears like hemiballismus CN: GUCIC, Doll's intact, left facial droop less attentive on the left unable to gaze to left on command Motor: less w/d left arm and leg, right arm and leg w/d to noxious Results/Medications Result Diagram: 11/19/16 0730 11/19/16 0730 Results 24 hrs Laboratory Tests Test 11/18/16 13:14 11/18/16 13:50 11/18/16 18:29 11/18/16 18:56 Bedside Glucose 59 L 110 60 L 175 Test 11/19/16 00:08 11/19/16 06:01 11/19/16 07:30 Bedside Glucose 93 114 White Blood Count 10.9 #H Red Blood Count 3.92 L Hemoglobin 11.6 L Hematocrit 34.7 L Mean Corpuscular Volume 88.5 Mean Corpuscular Hemoglobin 29.6 Mean Corpuscular Hemoglobin Concent 33.4 Red Cell Distribution Width 12.7 Platelet Count 359 # Mean Platelet Volume 10.1 Neutrophils % 69.9 Lymphocytes % 16.9 Monocytes % 12.3 H Eosinophils % 0.3 Basophils % 0.4 Nucleated Red Blood Cells % 0.0 Neutrophils # (Manual) 8 H Lymphocytes # 1.8 Monocytes # 1.3 H Eosinophils # 0.0 Basophils # 0.0 Nucleated Red Blood Cells # 0.0 Sodium Level 133 L Potassium Level 4.0 Chloride Level 100 Carbon Dioxide Level 24 Anion Gap 13 Blood Urea Nitrogen 4 L Creatinine 0.55 Glucose Level 107 # Calcium Level 10.2 Phosphorus Level 2.4 L Magnesium Level 1.9 Total Bilirubin 0.7 Direct Bilirubin 0.00 Indirect Bilirubin 0.7 Aspartate Amino Transf (AST/SGOT) 38 Alanine Aminotransferase (ALT/SGPT) 33 Alkaline Phosphatase 70 Total Protein 7.1 Albumin 3.7 Globulin 3.40 H Albumin/Globulin Ratio 1.08 Medications Current Medications Ondansetron HCl 4 mg 4 mg Q8H PRN PO NAUSEA AND/OR VOMITING; Start 11/16/16 at 14:00 Sodium Chloride (NS) 1,000 ml @ 100 mls/hr Q10H IV Last administered on 11:35; Admin Dose 100 MLS/HR; Start 11/16/16 at 13:33 Ondansetron HCl (Zofran Inj) 4 mg Q6H PRN IV NAUSEA AND/OR VOMITING; Start at 14:00 Acetaminophen (Tylenol Tab) 650 mg Q6H PRN PO PAIN LEVEL 1-3 OR FEVER; Start at 14:00 Docusate Sodium (Colace) 100 mg Q12H PRN PO CONSTIPATION; Start 11/16/16 at 14: 00 Bisacodyl (Dulcolax Supp) 10 mg DAILY PRN IN CONSTIPATION; Start 11/16/16 at 14 :00 Pantoprazole (Protonix Tab) 40 mg DAILY@06 PO ; Start 11/17/16 at 06:00 Lorazepam 1 mg 1 mg Q6H PRN IV SEIZURES Last administered on 11/18/16 21:14; Admin Dose 1 MG; Start 11/16/16 at 14:00 Ceftriaxone Sodium (Rocephin) 50 ml @ 100 mls/hr Q24H IVPB Last administered on 11/18/16 14:32; Admin Dose 100 MLS/HR; Start 11/16/16 at 14:00 Hydralazine HCl (Apresoline) 10 mg Q8H PRN IV ELEVATED BLOOD PRESSURE Last administered on 11/19/16 00:11; Admin Dose 10 MG; Start 11/16/16 at 17:00 Miscellaneous Information 1 ea NOTE XX ; Start 11/18/16 at 13:00 Glucose (Glutose) 15 gm Q15M PRN PO DECREASED GLUCOSE; Start 11/18/16 at 13:00 Glucose (Glutose) 22.5 gm Q15M PRN PO DECREASED GLUCOSE; Start 11/18/16 at 13: 00 Dextrose (D50w Syringe) 25 ml Q15M PRN IV DECREASED GLUCOSE Last administered on 11/18/16 18:34; Admin Dose 25 ML; Start 11/18/16 at 13:00 Dextrose (D50w Syringe) 50 ml Q15M PRN IV DECREASED GLUCOSE; Start 11/18/16 at 13:00 Glucagon (Glucagen) 1 mg Q15M PRN IM DECREASED GLUCOSE; Start 11/18/16 at 13:00 Glucose (Glutose) 15 gm Q15M PRN BUCCAL DECREASED GLUCOSE; Start 11/18/16 at 13 :00 Insulin Aspart (Novolog Insulin Pen) (Adult SC Insulin - Mild Algorithm)... Q6 SC ; Start 11/19/16 at 06:00 Amlodipine Besylate (Norvasc) 5 mg DAILY NGT Last administered on 11/19/16 11: 21; Admin Dose 5 MG; Start 11/19/16 at 09:00 Atorvastatin Calcium (Lipitor) 10 mg QHS NGT ; Start 11/19/16 at 21:00 Clonazepam (Klonopin) 1 mg BID NGT Last administered on 11/19/16 11:21; Admin Dose 1 MG; Start 11/19/16 at 09:00 Clopidogrel Bisulfate (plaVIX) 75 mg DAILY NGT Last administered on 11/19/16 11:21; Admin Dose 75 MG; Start 11/19/16 at 09:00 Donepezil HCl (Aricept) 5 mg DAILY NGT Last administered on 11/19/16 11:22; Admin Dose 5 MG; Start 11/19/16 at 09:00 Lisinopril (Zestril) 20 mg DAILY NGT Last administered on 11/19/16 11:20; Admin Dose 20 MG; Start 11/19/16 at 09:00 Magnesium Hydroxide (Milk Of Mag) 30 ml DAILY PRN NGT CONSTIPATION; Start 11/19 at 06:30 Assessment/Plan Chief Complaint/Hosp Course 66 year old female with 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 EEG showed slowing no seizures Recommend: d/c Keppra, unclear unlikely these are seizures suspect more of a movement disorder , hemiballismus started Klonopin 1 mg BID may require additional agent consider tetrabenazine MRI Brain w/o contrast pending r/o new stroke sepsis work up NGT, speech/swallow evaluation Problems: RASHAD COLE MD Nov 19, 2016 11:57
--- NOTE | 2016-11-19 12:00 | PN ---
Date/Time of Note Date/Time of Note DATE: 11/19/16 TIME: 11:48 Assessment/Plan VTE Prophylaxis VTE Prophylaxis Intervention: SCD's Lines/Catheters IV Catheter Type (from Nrs): Saline Lock Assessment/Plan Assessment/Plan 66-year-old female with: 1. Left > Right upper extremity tremors, involuntary movements, patient with also seizure disorder. Still with involuntary jerking movement of LUE while awake and talking. Restraints had to be put on overnight per patient and family request. Per Neuro likely to be movement disorder but cannot exclude partial seizures ..CT head noncontrast only shows old CVAs, EEG no seizure activity, MRI brain still pending. Continue current Keppra dosing, Vimpat added and trial of Klonopin. NG tube placed last night, patient improved neurological status today but still having involuntary movement of upper extremities L>R. Appreciate Neurology eval and recommendations. 2. Multiple old CVAs: Continue antiplatelet and statin once patient able to take p.o. Blood pressure control. Repeat MRI brain still pending 3. Dementia, likely vascular dementia, alert and oriented 1-2 at baseline. Continue Aricept once patient able to take p.o. 4. Hypertension: Controlled, continue home medications. 5. Hyperlipidemia and previous CVA, continue statin therapy once able to take p.o. 6. Positive UA, possible recurrent UTI, blood cultures no growth to date, urine culture with gram-negative rods but also few colonies of staph aureus. Sensitivities still pending. Continue Rocephin while awaiting final sensitivities. Prophylaxis: Seizure precautions, SCDs for DVT prophylaxis, Protonix for GI prophylaxis Disposition: MRI brain pending, NG tube for access for oral medication for now and restraints in place. Subjective 24 Hr Interval Summary Free Text/Dictation Patient still with involuntary movement of the left upper extremity greater than the right upper extremity, however she is much more awake, she did sleep last night, NG tube has to be placed for medication to be given including Klonopin. Appreciate recommendations from neurology. Patient still in restraints. Exam/Review of Systems Vital Signs Vitals Vital Signs Date Time Temp Pulse Resp B/P Pulse Ox O2 Delivery O2 Flow Rate FiO2 11/19/16 11:41 98.0 124 18 133/79 100 11/19/16 06:00 Nasal Cannula 3.0 Intake and Output 11/18/16 11/18/16 11/19/16 15:00 23:00 07:00 Intake Total 0 ml Balance 0 ml Exam Constitutional: alert, frail, oriented (x1 to 2) Respiratory: clear to auscultation, normal air movement Cardiovascular: nl pulses, regular rate and rhythm Gastrointestinal: non-tender, other (S/P NG tube in order to give oral medications), soft Musculoskeletal: nl extremities to inspection, nl gait and stance Extremities: normal pulses Neurological: MELT SUPERVISOR II-XII intact, nl mental status (Seems to be at baseline), nl speech, other (Still with involuntary movement of upper extremities L>R) Results Result Diagram: 11/19/16 0730 11/19/16 0730 Results 24 hrs Laboratory Tests Test 11/18/16 13:14 11/18/16 13:50 11/18/16 18:29 11/18/16 18:56 Bedside Glucose 59 L 110 60 L 175 Test 11/19/16 00:08 11/19/16 06:01 11/19/16 07:30 Bedside Glucose 93 114 White Blood Count 10.9 #H Red Blood Count 3.92 L Hemoglobin 11.6 L Hematocrit 34.7 L Mean Corpuscular Volume 88.5 Mean Corpuscular Hemoglobin 29.6 Mean Corpuscular Hemoglobin Concent 33.4 Red Cell Distribution Width 12.7 Platelet Count 359 # Mean Platelet Volume 10.1 Neutrophils % 69.9 Lymphocytes % 16.9 Monocytes % 12.3 H Eosinophils % 0.3 Basophils % 0.4 Nucleated Red Blood Cells % 0.0 Neutrophils # (Manual) 8 H Lymphocytes # 1.8 Monocytes # 1.3 H Eosinophils # 0.0 Basophils # 0.0 Nucleated Red Blood Cells # 0.0 Sodium Level 133 L Potassium Level 4.0 Chloride Level 100 Carbon Dioxide Level 24 Anion Gap 13 Blood Urea Nitrogen 4 L Creatinine 0.55 Glucose Level 107 # Calcium Level 10.2 Phosphorus Level 2.4 L Magnesium Level 1.9 Total Bilirubin 0.7 Direct Bilirubin 0.00 Indirect Bilirubin 0.7 Aspartate Amino Transf (AST/SGOT) 38 Alanine Aminotransferase (ALT/SGPT) 33 Alkaline Phosphatase 70 Total Protein 7.1 Albumin 3.7 Globulin 3.40 H Albumin/Globulin Ratio 1.08 Medications Medications Current Medications Ondansetron HCl 4 mg 4 mg Q8H PRN PO NAUSEA AND/OR VOMITING; Start 11/16/16 at 14:00 Sodium Chloride (NS) 1,000 ml @ 100 mls/hr Q10H IV Last administered on 11:35; Admin Dose 100 MLS/HR; Start 11/16/16 at 13:33 Ondansetron HCl (Zofran Inj) 4 mg Q6H PRN IV NAUSEA AND/OR VOMITING; Start at 14:00 Acetaminophen (Tylenol Tab) 650 mg Q6H PRN PO PAIN LEVEL 1-3 OR FEVER; Start at 14:00 Docusate Sodium (Colace) 100 mg Q12H PRN PO CONSTIPATION; Start 11/16/16 at 14: 00 Bisacodyl (Dulcolax Supp) 10 mg DAILY PRN [place] CONSTIPATION; Start 11/16/16 at 14 :00 Pantoprazole (Protonix Tab) 40 mg DAILY@06 PO ; Start 11/17/16 at 06:00 Lorazepam 1 mg 1 mg Q6H PRN IV SEIZURES Last administered on 11/18/16 21:14; Admin Dose 1 MG; Start 11/16/16 at 14:00 Ceftriaxone Sodium (Rocephin) 50 ml @ 100 mls/hr Q24H IVPB Last administered on 11/18/16 14:32; Admin Dose 100 MLS/HR; Start 11/16/16 at 14:00 Hydralazine HCl (Apresoline) 10 mg Q8H PRN IV ELEVATED BLOOD PRESSURE Last administered on 11/19/16 00:11; Admin Dose 10 MG; Start 11/16/16 at 17:00 Miscellaneous Information 1 ea NOTE XX ; Start 11/18/16 at 13:00 Glucose (Glutose) 15 gm Q15M PRN PO DECREASED GLUCOSE; Start 11/18/16 at 13:00 Glucose (Glutose) 22.5 gm Q15M PRN PO DECREASED GLUCOSE; Start 11/18/16 at 13: 00 Dextrose (D50w Syringe) 25 ml Q15M PRN IV DECREASED GLUCOSE Last administered on 11/18/16 18:34; Admin Dose 25 ML; Start 11/18/16 at 13:00 Dextrose (D50w Syringe) 50 ml Q15M PRN IV DECREASED GLUCOSE; Start 11/18/16 at 13:00 Glucagon (Glucagen) 1 mg Q15M PRN IM DECREASED GLUCOSE; Start 11/18/16 at 13:00 Glucose (Glutose) 15 gm Q15M PRN BUCCAL DECREASED GLUCOSE; Start 11/18/16 at 13 :00 Insulin Aspart (Novolog Insulin Pen) (Adult SC Insulin - Mild Algorithm)... Q6 SC ; Start 11/19/16 at 06:00 Amlodipine Besylate (Norvasc) 5 mg DAILY NGT Last administered on 11/19/16 11: 21; Admin Dose 5 MG; Start 11/19/16 at 09:00 Atorvastatin Calcium (Lipitor) 10 mg QHS NGT ; Start 11/19/16 at 21:00 Clonazepam (Klonopin) 1 mg BID NGT Last administered on 11/19/16 11:21; Admin Dose 1 MG; Start 11/19/16 at 09:00 Clopidogrel Bisulfate (plaVIX) 75 mg DAILY NGT Last administered on 11/19/16 11:21; Admin Dose 75 MG; Start 11/19/16 at 09:00 Donepezil HCl (Aricept) 5 mg DAILY NGT Last administered on 11/19/16 11:22; Admin Dose 5 MG; Start 11/19/16 at 09:00 Lisinopril (Zestril) 20 mg DAILY NGT Last administered on 11/19/16 11:20; Admin Dose 20 MG; Start 11/19/16 at 09:00 Magnesium Hydroxide (Milk Of Mag) 30 ml DAILY PRN NGT CONSTIPATION; Start 11/19 at 06:30 RODRI NGUYEN Nov 19, 2016 11:59
[2016-11-19] MEDS: CEFTRIAXONE 1 GM/50 ML (PMX) 50 ML IVPB SCH (13:33)
[2016-11-19] MEDS: ATORVASTATIN 10 MG TAB NGT SCH (20:48)
[2016-11-19] MEDS: metroNIDAZOLE 500 MG TAB NGT SCH (20:49)
[2016-11-20] VITALS (20 sets, daily range): BP systolic 121–143; BP diastolic 54–90; PULSE 72–113; RESP 17–20
[2016-11-20] MEDS: Insulin NOVOLOG SS MILD Algorithm (NPO/TPN/ENTERAL FEEDS) SC SCH ×5 (06:00→21:51)
[2016-11-20] MEDS: PANTOPRAZOLE (EC) 40 MG TAB PO SCH (06:17)
[2016-11-20] MEDS: CLOPIDOGREL 75 MG TAB NGT SCH (09:46)
[2016-11-20] MEDS: metroNIDAZOLE 500 MG TAB NGT SCH ×2 (09:46→21:51)
[2016-11-20] MEDS: clonAZEPAM 0.5 MG TAB NGT SCH ×2 (09:46→21:51)
[2016-11-20] MEDS: DONEPEZIL 5 MG TAB NGT SCH (09:46)
[2016-11-20] MEDS: LISINOPRIL 20 MG TAB NGT SCH (09:47)
[2016-11-20] MEDS: AMLODIPINE 5 MG TAB NGT SCH (09:59)
[2016-11-20] MEDS: SOD CHLORIDE 0.9% 1,000 ML IV SCH ×2 (12:29→17:36)
[2016-11-20] MEDS: CEFTRIAXONE 1 GM/50 ML (PMX) 50 ML IVPB SCH (14:00)
--- NOTE | 2016-11-20 14:34 | PN ---
Date/Time of Note Date/Time of Note DATE: 11/20/16 TIME: 14:25 Assessment/Plan VTE Prophylaxis VTE Prophylaxis Intervention: SCD's Lines/Catheters [facility]from [facility]): Peripheral IV Urinary Cath still in place: No Assessment/Plan Assessment/Plan 66-year-old female with: 1. Left > Right upper extremity tremors, involuntary movements, patient with also seizure disorder. Improved involuntary movements, she did receive a couple dose of Klonopin and Vimpat through NG tube over the past 24-48 hours. Restraints had to be put on per patient and family request. Much improved today , discontinue restraints. Per Neuro likely to be movement disorder but cannot exclude partial seizures ..CT head noncontrast only shows old CVAs, EEG no seizure activity, MRI brain still pending. Continue current Keppra dosing, Vimpat added and trial of Klonopin. She did pass speech evaluation today. On pure diet, therefore NG tube can be discontinued. The patient already pulled it out. Appreciate Neurology follow-ups and recommendations. 2. Multiple old CVAs: Continue antiplatelet and statin once patient able to take p.o. Blood pressure control. Repeat MRI brain still pending 3. Dementia, likely vascular dementia, alert and oriented 1-2 at baseline. Continue Aricept once patient able to take p.o. 4. Hypertension: Controlled, continue home medications. 5. Hyperlipidemia and previous CVA, continue statin therapy once able to take p.o. 6. Positive UA and Urine culture with staph aureus and Gardnerella vaginalis. Continue Flagyl for total of 7 days, also on Rocephin. Prophylaxis: Seizure precautions, SCDs for DVT prophylaxis, Protonix for GI prophylaxis Disposition: MRI brain pending, NG tube for access for oral medication for now and restraints in place. Subjective 24 Hr Interval Summary Free Text/Dictation Patient much more awake today, evaluated by speech therapy, okay to give puree diet with thin liquids Afebrile, were about to DC the NG tube but patient already pulled it out. Continue medications, improved movement disorder, with current meds. Exam/Review of Systems Vital Signs Vitals Vital Signs Date Time Temp Pulse Resp B/P Pulse Ox O2 Delivery O2 Flow Rate FiO2 11/20/16 12:34 76 11/20/16 07:41 98.6 18 121/70 100 11/20/16 06:00 Nasal Cannula 3.0 Intake and Output 11/19/16 11/19/16 11/20/16 15:00 23:00 07:00 Intake Total 0 ml 1200 ml Balance 0 ml 1200 ml Exam Constitutional: alert, frail, oriented, other (thin) Respiratory: clear to auscultation, normal air movement Cardiovascular: nl pulses, regular rate and rhythm Gastrointestinal: non-tender, soft Musculoskeletal: other (Some abnormal movement disorder, improved from before. Left upper extremity worse than right) Extremities: normal pulses, other (No edema, clubbing or cyanosis) Neurological: DIAL MOUNTER II-XII intact, lethargic (But much improved currently.) Results Result Diagram: 11/19/16 0730 11/19/16 0730 Results 24 hrs Laboratory Tests Test 11/19/16 17:35 11/19/16 20:53 11/20/16 06:53 11/20/16 12:26 Bedside Glucose 89 83 81 77 Medications Medications Current Medications Ondansetron HCl 4 mg 4 mg Q8H PRN PO NAUSEA AND/OR VOMITING; Start 11/16/16 at 14:00 Sodium Chloride (NS) 1,000 ml @ 100 mls/hr Q10H IV Last administered on 12:29; Admin Dose 100 MLS/HR; Start 11/16/16 at 13:33 Ondansetron HCl (Zofran Inj) 4 mg Q6H PRN IV NAUSEA AND/OR VOMITING; Start at 14:00 Acetaminophen (Tylenol Tab) 650 mg Q6H PRN PO PAIN LEVEL 1-3 OR FEVER; Start at 14:00 Docusate Sodium (Colace) 100 mg Q12H PRN PO CONSTIPATION; Start 11/16/16 at 14: 00 Bisacodyl (Dulcolax Supp) 10 mg DAILY PRN [place] CONSTIPATION; Start 11/16/16 at 14 :00 Pantoprazole (Protonix Tab) 40 mg DAILY@06 PO Last administered on 11/20/16 06 :17; Admin Dose 40 MG; Start 11/17/16 at 06:00 Lorazepam 1 mg 1 mg Q6H PRN IV SEIZURES Last administered on 11/18/16 21:14; Admin Dose 1 MG; Start 11/16/16 at 14:00 Ceftriaxone Sodium (Rocephin) 50 ml @ 100 mls/hr Q24H IVPB Last administered on 11/19/16 13:33; Admin Dose 100 MLS/HR; Start 11/16/16 at 14:00 Hydralazine HCl (Apresoline) 10 mg Q8H PRN IV ELEVATED BLOOD PRESSURE Last administered on 11/19/16 00:11; Admin Dose 10 MG; Start 11/16/16 at 17:00 Miscellaneous Information 1 ea NOTE XX ; Start 11/18/16 at 13:00 Glucose (Glutose) 15 gm Q15M PRN PO DECREASED GLUCOSE; Start 11/18/16 at 13:00 Glucose (Glutose) 22.5 gm Q15M PRN PO DECREASED GLUCOSE; Start 11/18/16 at 13: 00 Dextrose (D50w Syringe) 25 ml Q15M PRN IV DECREASED GLUCOSE Last administered on 11/18/16 18:34; Admin Dose 25 ML; Start 11/18/16 at 13:00 Dextrose (D50w Syringe) 50 ml Q15M PRN IV DECREASED GLUCOSE; Start 11/18/16 at 13:00 Glucagon (Glucagen) 1 mg Q15M PRN IM DECREASED GLUCOSE; Start 11/18/16 at 13:00 Glucose (Glutose) 15 gm Q15M PRN BUCCAL DECREASED GLUCOSE; Start 11/18/16 at 13 :00 Insulin Aspart (Novolog Insulin Pen) (Adult SC Insulin - Mild Algorithm)... Q6 SC ; Start 11/19/16 at 06:00 Amlodipine Besylate (Norvasc) 5 mg DAILY NGT Last administered on 11/20/16 09: 59; Admin Dose 5 MG; Start 11/19/16 at 09:00 Atorvastatin Calcium (Lipitor) 10 mg QHS NGT Last administered on 11/19/16 20: 48; Admin Dose 10 MG; Start 11/19/16 at 21:00 Clonazepam (Klonopin) 1 mg BID NGT Last administered on 11/20/16 09:46; Admin Dose 1 MG; Start 11/19/16 at 09:00 Clopidogrel Bisulfate (plaVIX) 75 mg DAILY NGT Last administered on 11/20/16 09:46; Admin Dose 75 MG; Start 11/19/16 at 09:00 Donepezil HCl (Aricept) 5 mg DAILY NGT Last administered on 11/20/16 09:46; Admin Dose 5 MG; Start 11/19/16 at 09:00 Lisinopril (Zestril) 20 mg DAILY NGT Last administered on 11/20/16 09:47; Admin Dose 20 MG; Start 11/19/16 at 09:00 Magnesium Hydroxide (Milk Of Mag) 30 ml DAILY PRN NGT CONSTIPATION; Start 11/19 at 06:30 Metronidazole (Flagyl) 500 mg Q12 NGT Last administered on 11/20/16 09:46; Admin Dose 500 MG; Start 11/19/16 at 21:00; Stop 11/26/16 at 09:01 RODRI NGUYEN Nov 20, 2016 14:34
[2016-11-20] MEDS: ATORVASTATIN 10 MG TAB NGT SCH (21:51)
[2016-11-20] MEDS: LORAZEPAM 2 MG INJ IV PRN (21:51)
[2016-11-21] VITALS (12 sets, daily range): BP systolic 124–167; BP diastolic 55–96; PULSE 64–98; RESP 17–18
[2016-11-21] MEDS: SOD CHLORIDE 0.9% 1,000 ML IV SCH ×3 (03:33→23:33)
[2016-11-21] MEDS: Insulin NOVOLOG SS MILD Algorithm (NPO/TPN/ENTERAL FEEDS) SC SCH ×2 (06:00→12:00)
[2016-11-21] MEDS: PANTOPRAZOLE (EC) 40 MG TAB PO SCH (06:00)
[2016-11-21 07:59] LABS: BASOPHILS % 0.8 % (0.0-2.0); EOSINOPHILS # 0.1 10^3/ul (0.0-0.5); EOSINOPHILS % 3.1 % (0.0-7.0); HEMATOCRIT 27.8 % (37.0-47.0); HEMOGLOBIN 8.8 g/dl (12.0-16.0); LYMPHOCYTES # 1.5 10^3/ul (0.8-2.9); LYMPHOCYTES % 37.6 % (15.0-51.0); MEAN CORPUSCULAR HEMOGLOBIN 28.6 pg (29.0-33.0); MEAN CORPUSCULAR HGB CONC 31.7 g/dl (32.0-37.0); MEAN CORPUSCULAR VOLUME 90.3 fl (82.0-101.0); MEAN PLATELET VOLUME 10.1 fl (7.4-10.4); MONOCYTE # 0.5 10^3/ul (0.3-0.9); MONOCYTES % 11.5 % (0.0-11.0); NEUTROPHILS % 46.7 % (39.0-77.0); PLATELET COUNT 298 10^3/UL (140-415); RED BLOOD COUNT 3.08 10^6/ul (4.20-5.40); RED CELL DISTRIBUTION WIDTH 12.9 % (11.5-14.5); WHITE BLOOD COUNT 3.9 10^3/ul (4.8-10.8)
[2016-11-21 08:22] LABS: ALBUMIN/GLOBULIN RATIO 1.11; BILIRUBIN,INDIRECT 0.2 mg/dl (0-1.1); BILIRUBIN,TOTAL 0.2 mg/dl (0.2-1.3); CALCIUM 9.7 mg/dl (8.4-10.2); CREATININE 0.64 mg/dl (0.44-1.00); TOTAL PROTEIN 5.7 g/dl (6.1-8.1)
[2016-11-21 08:27] LABS: POTASSIUM 2.9 mmol/L (3.5-5.1)
[2016-11-21 08:28] LABS: MAGNESIUM 1.9 mg/dl (1.7-2.5); PHOSPHORUS 2.9 mg/dl (2.5-4.9)
[2016-11-21] MEDS: AMLODIPINE 5 MG TAB NGT SCH (09:00)
[2016-11-21] MEDS: metroNIDAZOLE 500 MG TAB NGT SCH ×2 (09:00→21:49)
[2016-11-21] MEDS: LISINOPRIL 20 MG TAB NGT SCH (09:00)
[2016-11-21] MEDS: CLOPIDOGREL 75 MG TAB NGT SCH (09:00)
[2016-11-21] MEDS: clonAZEPAM 0.5 MG TAB NGT SCH ×2 (09:00→21:49)
[2016-11-21] MEDS: DONEPEZIL 5 MG TAB NGT SCH (09:00)
[2016-11-21] MEDS ORDERED: POTASSIUM CHLORIDE (SR) 20 MEQ TAB PO STA (09:40)
--- NOTE | 2016-11-21 09:40 | RADRPT ---
PROCEDURE: MR Brain noncontrast. CLINICAL INDICATION: Altered level of consciousness. TECHNIQUE: Multiplanar multisequence noncontrast MRI of the brain was performed. COMPARISON: Noncontrast CT of the head from November 16, 2016. Noncontrast MRI of the brain from 2016. FINDINGS: Evaluation is moderately limited due to motion degradation. There is minimal generalized cerebral volume loss. There is a chronic right frontal parietal infarction with encephalomalacia and subcortical gliosis. There is a chronic right gracia radiata/putamen infarction. There is a chronic left frontal gracia radiata lacunar infarction. There are chronic bilateral thalamic and basal ganglia lacunar infarctions. There are moderate periventricular and subcortical T2 hyperintensities suggesting chronic microvascu lar ischemic changes. There are foci of susceptibility within the right occipital lobe as well as areas of chronic infarct ion suggestive of hemosiderin deposition from chronic microhemorrhage. There is a cavum septum pellucidum et vergae which is a normal variant. There is no acute infarction. There is no intracranial hemorrhage or extra-axial fluid collection. There is no mass effect. There is no midline shift. The brainstem is within normal limits. The posterior fossa is unremarkable. The normal intracranial, intravascular flow voids are preserved. The visualized paranasal sinuses are well aerated. The orbits are grossly unremarkable. There is no destructive osseous lesion. IMPRESSION: Evaluation is moderately limited due to motion degradation. No significant change. 1. No acute infarction or intracranial hemorrhage. 2. Minimal generalized cerebral volume loss. 3. Moderate chronic microvascular ischemic changes. 4. Chronic right gracia radiata/putamen infarction. 5. Chronic left frontal gracia radiata infarction. 6. Chronic right frontal parietal infarction with encephalomalacia/gliosis. 7. Chronic bilateral basal ganglia and thalamic lacunar infarctions. Further findings as detailed above. RPTAT: HVF .Kennedy Kelly MD, Date Time Electronically viewed and signed by .Kennedy Kelly MD, MD on 11/21/2016 09:39 .F/
[2016-11-21] MEDS ORDERED: POTASSIUM CHLORIDE 250 ML IVPB ONE (11:00)
[2016-11-21] MEDS: ACETAMINOPHEN 325 MG TAB PO PRN (11:01)
[2016-11-21] MEDS: LORAZEPAM 2 MG INJ IV PRN (11:25)
[2016-11-21] MEDS: CEFTRIAXONE 1 GM/50 ML (PMX) 50 ML IVPB SCH (14:00)
--- NOTE | 2016-11-21 15:37 | CONS ---
Date/Time of Note Date/Time of Note DATE: 11/21/16 TIME: 15:29 Consult Date/Type/Reason Admit Date/Time Nov 16, 2016 at 13:31 Initial Consult Date 11/16/16 Type of Consultation: Neurology Ordering Provider: RODRI NGUYEN Subjective no events, no excessive movements today Objective Vital Signs Date Time Temp Pulse Resp B/P Pulse Ox O2 Delivery O2 Flow Rate FiO2 11/21/16 12:00 98.7 78 17 124/84 100 11/21/16 07:24 3.0 11/20/16 16:12 Nasal Cannula Intake and Output 11/20/16 11/20/16 11/21/16 15:00 23:00 07:00 Intake Total 50 ml 150 ml Balance 50 ml 150 ml Results/Medications Result Diagram: 11/21/16 0610 11/21/16 0610 Results 24 hrs Laboratory Tests Test 11/20/16 17:57 11/20/16 21:50 11/21/16 06:10 11/21/16 06:54 Bedside Glucose 103 83 82 White Blood Count 3.9 #L Red Blood Count 3.08 #L Hemoglobin 8.8 #L Hematocrit 27.8 L Mean Corpuscular Volume 90.3 Mean Corpuscular Hemoglobin 28.6 L Mean Corpuscular Hemoglobin Concent 31.7 L Red Cell Distribution Width 12.9 Platelet Count 298 Mean Platelet Volume 10.1 Neutrophils % 46.7 Lymphocytes % 37.6 Monocytes % 11.5 H Eosinophils % 3.1 Basophils % 0.8 Nucleated Red Blood Cells % 0.0 Neutrophils # (Manual) 1.8 Lymphocytes # 1.5 Monocytes # 0.5 Eosinophils # 0.1 Basophils # 0.0 Nucleated Red Blood Cells # 0.0 Sodium Level 144 Potassium Level 2.9 *L Chloride Level 105 Carbon Dioxide Level 28 Anion Gap 14 Blood Urea Nitrogen 4 L Creatinine 0.64 Glucose Level 81 Calcium Level 9.7 Phosphorus Level 2.9 Magnesium Level 1.9 Total Bilirubin 0.2 Direct Bilirubin 0.00 Indirect Bilirubin 0.2 Aspartate Amino Transf (AST/SGOT) 21 Alanine Aminotransferase (ALT/SGPT) 34 Alkaline Phosphatase 54 Total Protein 5.7 #L Albumin 3.0 L Globulin 2.70 Albumin/Globulin Ratio 1.11 Medications Current Medications Ondansetron HCl 4 mg 4 mg Q8H PRN PO NAUSEA AND/OR VOMITING; Start 11/16/16 at 14:00 Sodium Chloride (NS) 1,000 ml @ 100 mls/hr Q10H IV Last administered on 03:33; Admin Dose 100 MLS/HR; Start 11/16/16 at 13:33 Ondansetron HCl (Zofran Inj) 4 mg Q6H PRN IV NAUSEA AND/OR VOMITING; Start at 14:00 Acetaminophen (Tylenol Tab) 650 mg Q6H PRN PO PAIN LEVEL 1-3 OR FEVER Last administered on 11/21/16 11:01; Admin Dose 650 MG; Start 11/16/16 at 14:00 Docusate Sodium (Colace) 100 mg Q12H PRN PO CONSTIPATION; Start 11/16/16 at 14: 00 Bisacodyl (Dulcolax Supp) 10 mg DAILY PRN [place] CONSTIPATION; Start 11/16/16 at 14 :00 Pantoprazole (Protonix Tab) 40 mg DAILY@06 PO Last administered on 11/21/16 06 :00; Admin Dose 40 MG; Start 11/17/16 at 06:00 Lorazepam 1 mg 1 mg Q6H PRN IV SEIZURES Last administered on 11/21/16 11:25; Admin Dose 1 MG; Start 11/16/16 at 14:00 Ceftriaxone Sodium (Rocephin) 50 ml @ 100 mls/hr Q24H IVPB Last administered on 11/20/16 14:00; Admin Dose 100 MLS/HR; Start 11/16/16 at 14:00 Hydralazine HCl (Apresoline) 10 mg Q8H PRN IV ELEVATED BLOOD PRESSURE Last administered on 11/19/16 00:11; Admin Dose 10 MG; Start 11/16/16 at 17:00 Miscellaneous Information 1 ea NOTE XX ; Start 11/18/16 at 13:00 Glucose (Glutose) 15 gm Q15M PRN PO DECREASED GLUCOSE; Start 11/18/16 at 13:00 Glucose (Glutose) 22.5 gm Q15M PRN PO DECREASED GLUCOSE; Start 11/18/16 at 13: 00 Dextrose (D50w Syringe) 25 ml Q15M PRN IV DECREASED GLUCOSE Last administered on 11/18/16 18:34; Admin Dose 25 ML; Start 11/18/16 at 13:00 Dextrose (D50w Syringe) 50 ml Q15M PRN IV DECREASED GLUCOSE; Start 11/18/16 at 13:00 Glucagon (Glucagen) 1 mg Q15M PRN IM DECREASED GLUCOSE; Start 11/18/16 at 13:00 Glucose (Glutose) 15 gm Q15M PRN BUCCAL DECREASED GLUCOSE; Start 11/18/16 at 13 :00 Insulin Aspart (Novolog Insulin Pen) (Adult SC Insulin - Mild Algorithm)... Q6 SC ; Start 11/19/16 at 06:00 Amlodipine Besylate (Norvasc) 5 mg DAILY NGT Last administered on 11/21/16 09: 00; Admin Dose 5 MG; Start 11/19/16 at 09:00 Atorvastatin Calcium (Lipitor) 10 mg QHS NGT Last administered on 11/20/16 21: 51; Admin Dose 10 MG; Start 11/19/16 at 21:00 Clonazepam (Klonopin) 1 mg BID NGT Last administered on 11/21/16 09:00; Admin Dose 1 MG; Start 11/19/16 at 09:00 Clopidogrel Bisulfate (plaVIX) 75 mg DAILY NGT Last administered on 11/21/16 09:00; Admin Dose 75 MG; Start 11/19/16 at 09:00 Donepezil HCl (Aricept) 5 mg DAILY NGT Last administered on 11/21/16 09:00; Admin Dose 5 MG; Start 11/19/16 at 09:00 Lisinopril (Zestril) 20 mg DAILY NGT Last administered on 11/21/16 09:00; Admin Dose 20 MG; Start 11/19/16 at 09:00 Magnesium Hydroxide (Milk Of Mag) 30 ml DAILY PRN NGT CONSTIPATION; Start 11/19 at 06:30 Metronidazole (Flagyl) 500 mg Q12 NGT Last administered on 11/21/16 09:00; Admin Dose 500 MG; Start 11/19/16 at 21:00; Stop 11/26/16 at 09:01 Assessment/Plan Chief Complaint/Hosp Course Neuroexam: awake and alert, fluent speech, Ox3, follows commands No involuntary movements observed CN: blinks to threat, GUCCI 3-2mm, left facial droop, normal sensations, tongue on midline Motor: left sided weakness, 2+3-/5 LUE, slightly better 3/5 LLE, increased tone mildly Preserved LT, normal RUE coordination A/P: 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 Continue current tx Problems: KELLEY ESPANA MD Nov 21, 2016 15:37
--- NOTE | 2016-11-21 17:32 | PN ---
Date/Time of Note Date/Time of Note DATE: 11/21/16 TIME: 17:31 Assessment/Plan VTE Prophylaxis VTE Prophylaxis Intervention: SCD's Lines/Catheters IV Catheter Type (from Nrs): Peripheral IV Urinary Cath still in place: No Assessment/Plan Assessment/Plan [facility] 1. 66-year-old woman with upper extremity tremors and other involuntary movements. She has a history of seizure disorder. Appears improved overall, with minimal use of Klonopin and lacosamide (Vimpat) through the nasogastric tube, now removed. MRI yesterday showed no significant change from study in April this year. Specific findings were: No acute infarction or intracranial hemorrhage; minimal generalized cerebral volume loss; moderate chronic microvascular ischemic changes, with chronic right gracia radiata/ putamen infarction and chronic left frontal gracia radiata infarction. Also chronic right frontal parietal infarction with encephalomalacia/gliosis, and chronic bilateral basal ganglia and thalamic lacunar infarctions. * Discontinue restraints. * Continue current Keppra * Vimpat and Klonopin added. * Continue on pure diet * Replace potassium today * Discussed with Dr. Dutch Lira (neurology) 2. Multiple old strokes, as noted above. * Continue Plavix * Restart atorvastatin * Monitoring hypertension 3. Cortical dementia. * Restart Aricept 4. Hypertension * Continue amlodipine 5. Hyperlipidemia, on atorvastatin 6. Positive UA and Urine culture with staph aureus and Gardnerella vaginalis. * Continue Flagyl for total of 7 days * Continue Rocephin. 7. Prophylaxis * Seizure precautions * SCDs for DVT prophylaxis * Protonix for GI prophylaxis\ 8. Disposition: waiting for Neurology recommendations. Review placement situation. Sumaya Atwood MD PhD [phone] Subjective 24 Hr Interval Summary Free Text/Dictation Complaining of pain at her right IV site. Very little appetite, with lunch sitting untouched by her bedside. But no headache, chest pain, dyspnea, or nausea. Exam/Review of Systems Vital Signs Vitals Vital Signs Date Time Temp Pulse Resp B/P Pulse Ox O2 Delivery O2 Flow Rate FiO2 11/21/16 16:00 96 11/21/16 15:33 98.3 18 128/83 100 11/21/16 07:24 3.0 11/20/16 16:12 Nasal Cannula Intake and Output 11/20/16 11/20/16 11/21/16 14:59 22:59 06:59 Intake Total 200 ml Balance 200 ml Exam Constitutional: Alert, frail, uncomfortable-appearing. Respiratory: Clear to auscultation, normal air movement Cardiovascular: Symmetric pulses, regular rhythm, normal rate, no murmur. Gastrointestinal: Non-tender, soft, normal bowel sounds, no HSM. Musculoskeletal: No movement of the left upper extremity. No katelyn arthritis or peripheral edema. Extremities: normal pulses, other (No edema, clubbing or cyanosis) Neurological: Left facial droop, EOMI, cranial nerves otherwise intact. Neutral affect. Limited conversational ability, with unclear ability to answer questions. Moving both legs. Toes downgoing. Results Result Diagram: 11/21/16 0610 11/21/1610 Results 24 hrs Laboratory Tests Test 11/20/16 17:57 11/20/16 21:50 11/21/16 06:10 11/21/16 06:54 Bedside Glucose 103 83 82 White Blood Count 3.9 #L Red Blood Count 3.08 #L Hemoglobin 8.8 #L Hematocrit 27.8 L Mean Corpuscular Volume 90.3 Mean Corpuscular Hemoglobin 28.6 L Mean Corpuscular Hemoglobin Concent 31.7 L Red Cell Distribution Width 12.9 Platelet Count 298 Mean Platelet Volume 10.1 Neutrophils % 46.7 Lymphocytes % 37.6 Monocytes % 11.5 H Eosinophils % 3.1 Basophils % 0.8 Nucleated Red Blood Cells % 0.0 Neutrophils # (Manual) 1.8 Lymphocytes # 1.5 Monocytes # 0.5 Eosinophils # 0.1 Basophils # 0.0 Nucleated Red Blood Cells # 0.0 Sodium Level 144 Potassium Level 2.9 *L Chloride Level 105 Carbon Dioxide Level 28 Anion Gap 14 Blood Urea Nitrogen 4 L Creatinine 0.64 Glucose Level 81 Calcium Level 9.7 Phosphorus Level 2.9 Magnesium Level 1.9 Total Bilirubin 0.2 Direct Bilirubin 0.00 Indirect Bilirubin 0.2 Aspartate Amino Transf (AST/SGOT) 21 Alanine Aminotransferase (ALT/SGPT) 34 Alkaline Phosphatase 54 Total Protein 5.7 #L Albumin 3.0 L Globulin 2.70 Albumin/Globulin Ratio 1.11 Medications Medications Current Medications Ondansetron HCl 4 mg 4 mg Q8H PRN PO NAUSEA AND/OR VOMITING; Start 11/16/16 at 14:00 Sodium Chloride (NS) 1,000 ml @ 100 mls/hr Q10H IV Last administered on 03:33; Admin Dose 100 MLS/HR; Start 11/16/16 at 13:33 Ondansetron HCl (Zofran Inj) 4 mg Q6H PRN IV NAUSEA AND/OR VOMITING; Start at 14:00 Acetaminophen (Tylenol Tab) 650 mg Q6H PRN PO PAIN LEVEL 1-3 OR FEVER Last administered on 11/21/16 11:01; Admin Dose 650 MG; Start 11/16/16 at 14:00 Docusate Sodium (Colace) 100 mg Q12H PRN PO CONSTIPATION; Start 11/16/16 at 14: 00 Bisacodyl (Dulcolax Supp) 10 mg DAILY PRN [place] CONSTIPATION; Start 11/16/16 at 14 :00 Pantoprazole (Protonix Tab) 40 mg DAILY@06 PO Last administered on 11/21/16 06 :00; Admin Dose 40 MG; Start 11/17/16 at 06:00 Lorazepam 1 mg 1 mg Q6H PRN IV SEIZURES Last administered on 11/21/16 11:25; Admin Dose 1 MG; Start 11/16/16 at 14:00 Ceftriaxone Sodium (Rocephin) 50 ml @ 100 mls/hr Q24H IVPB Last administered on 11/21/16 14:00; Admin Dose 100 MLS/HR; Start 11/16/16 at 14:00 Hydralazine HCl (Apresoline) 10 mg Q8H PRN IV ELEVATED BLOOD PRESSURE Last administered on 11/19/16 00:11; Admin Dose 10 MG; Start 11/16/16 at 17:00 Miscellaneous Information 1 ea NOTE XX ; Start 11/18/16 at 13:00 Glucose (Glutose) 15 gm Q15M PRN PO DECREASED GLUCOSE; Start 11/18/16 at 13:00 Glucose (Glutose) 22.5 gm Q15M PRN PO DECREASED GLUCOSE; Start 11/18/16 at 13: 00 Dextrose (D50w Syringe) 25 ml Q15M PRN IV DECREASED GLUCOSE Last administered on 11/18/16 18:34; Admin Dose 25 ML; Start 11/18/16 at 13:00 Dextrose (D50w Syringe) 50 ml Q15M PRN IV DECREASED GLUCOSE; Start 11/18/16 at 13:00 Glucagon (Glucagen) 1 mg Q15M PRN IM DECREASED GLUCOSE; Start 11/18/16 at 13:00 Glucose (Glutose) 15 gm Q15M PRN BUCCAL DECREASED GLUCOSE; Start 11/18/16 at 13 :00 Insulin Aspart (Novolog Insulin Pen) (Adult SC Insulin - Mild Algorithm)... Q6 SC ; Start 11/19/16 at 06:00 Amlodipine Besylate (Norvasc) 5 mg DAILY NGT Last administered on 11/21/16 09: 00; Admin Dose 5 MG; Start 11/19/16 at 09:00 Atorvastatin Calcium (Lipitor) 10 mg QHS NGT Last administered on 11/20/16 21: 51; Admin Dose 10 MG; Start 11/19/16 at 21:00 Clonazepam (Klonopin) 1 mg BID NGT Last administered on 11/21/16 09:00; Admin Dose 1 MG; Start 11/19/16 at 09:00 Clopidogrel Bisulfate (plaVIX) 75 mg DAILY NGT Last administered on 11/21/16 09:00; Admin Dose 75 MG; Start 11/19/16 at 09:00 Donepezil HCl (Aricept) 5 mg DAILY NGT Last administered on 11/21/16 09:00; Admin Dose 5 MG; Start 11/19/16 at 09:00 Lisinopril (Zestril) 20 mg DAILY NGT Last administered on 11/21/16 09:00; Admin Dose 20 MG; Start 11/19/16 at 09:00 Magnesium Hydroxide (Milk Of Mag) 30 ml DAILY PRN NGT CONSTIPATION; Start 11/19 at 06:30 Metronidazole (Flagyl) 500 mg Q12 NGT Last administered on 11/21/16 09:00; Admin Dose 500 MG; Start 11/19/16 at 21:00; Stop 11/26/16 at 09:01 MELY ATWOOD M.D. Nov 21, 2016 17:32 Admin Dose 1 MG; Start 11/16/16 at 14:00 Ceftriaxone Sodium (Rocephin) 50 ml @ 100 mls/hr Q24H IVPB Last administered on 11/21/16 14:00; Admin Dose 100 MLS/HR; Start 11/16/16 at 14:00 Hydralazine HCl (Apresoline) 10 mg Q8H PRN IV ELEVATED BLOOD PRESSURE Last administered on 11/19/16 00:11; Admin Dose 10 MG; Start 11/16/16 at 17:00 Miscellaneous Information 1 ea NOTE XX ; Start 11/18/16 at 13:00 Glucose (Glutose) 15 gm Q15M PRN PO DECREASED GLUCOSE; Start 11/18/16 at 13:00 Glucose (Glutose) 22.5 gm Q15M PRN PO DECREASED GLUCOSE; Start 11/18/16 at 13: 00 Dextrose (D50w Syringe) 25 ml Q15M PRN IV DECREASED GLUCOSE Last administered on 11/18/16 18:34; Admin Dose 25 ML; Start 11/18/16 at 13:00 Dextrose (D50w Syringe) 50 ml Q15M PRN IV DECREASED GLUCOSE; Start 11/18/16 at 13:00 Glucagon (Glucagen) 1 mg Q15M PRN IM DECREASED GLUCOSE; Start 11/18/16 at 13:00 Glucose (Glutose) 15 gm Q15M PRN BUCCAL DECREASED GLUCOSE; Start 11/18/16 at 13 :00 Insulin Aspart (Novolog Insulin Pen) (Adult SC Insulin - Mild Algorithm)... Q6 SC ; Start 11/19/16 at 06:00 Amlodipine Besylate (Norvasc) 5 mg DAILY NGT Last administered on 11/21/16 09: 00; Admin Dose 5 MG; Start 11/19/16 at 09:00 Atorvastatin Calcium (Lipitor) 10 mg QHS NGT Last administered on 11/20/16 21: 51; Admin Dose 10 MG; Start 11/19/16 at 21:00 Clonazepam (Klonopin) 1 mg BID NGT Last administered on 11/21/16 09:00; Admin Dose 1 MG; Start 11/19/16 at 09:00 Clopidogrel Bisulfate (plaVIX) 75 mg DAILY NGT Last administered on 11/21/16 09:00; Admin Dose 75 MG; Start 11/19/16 at 09:00 Donepezil HCl (Aricept) 5 mg DAILY NGT Last administered on 11/21/16 09:00; Admin Dose 5 MG; Start 11/19/16 at 09:00 Lisinopril (Zestril) 20 mg DAILY NGT Last administered on 11/21/16 09:00; Admin Dose 20 MG; Start 11/19/16 at 09:00 Magnesium Hydroxide (Milk Of Mag) 30 ml DAILY PRN NGT CONSTIPATION; Start 11/19 at 06:30 Metronidazole (Flagyl) 500 mg Q12 NGT Last administered on 11/21/16 09:00; Admin Dose 500 MG; Start 11/19/16 at 21:00; Stop 11/26/16 at 09:01 MELY ATWOOD M.D. Nov 21, 2016 17:32
[2016-11-21] MEDS: ATORVASTATIN 10 MG TAB NGT SCH (21:49)
[2016-11-22] VITALS (12 sets, daily range): BP systolic 117–152; BP diastolic 73–98; PULSE 63–89; RESP 17–18
[2016-11-22] MEDS ORDERED: LORAZEPAM 1 MG TAB PO PRN
[2016-11-22] MEDS: PANTOPRAZOLE (EC) 40 MG TAB PO SCH (06:36)
[2016-11-22] MEDS: DONEPEZIL 5 MG TAB NGT SCH (08:08)
[2016-11-22] MEDS: metroNIDAZOLE 500 MG TAB NGT SCH ×2 (08:08→20:52)
[2016-11-22] MEDS: LISINOPRIL 20 MG TAB NGT SCH (08:10)
[2016-11-22] MEDS: CLOPIDOGREL 75 MG TAB NGT SCH (08:10)
[2016-11-22] MEDS: AMLODIPINE 5 MG TAB NGT SCH (08:10)
[2016-11-22] MEDS: clonAZEPAM 0.5 MG TAB NGT SCH ×2 (08:16→20:52)
[2016-11-22] MEDS: SOD CHLORIDE 0.9% 1,000 ML IV SCH ×3 (09:43→20:50)
[2016-11-22 12:43] LABS: BASOPHILS % 0.5 % (0.0-2.0); EOSINOPHILS # 0.1 10^3/ul (0.0-0.5); EOSINOPHILS % 2.4 % (0.0-7.0); HEMATOCRIT 32.1 % (37.0-47.0); HEMOGLOBIN 10.5 g/dl (12.0-16.0); LYMPHOCYTES # 1.1 10^3/ul (0.8-2.9); LYMPHOCYTES % 26.4 % (15.0-51.0); MEAN CORPUSCULAR HEMOGLOBIN 29.8 pg (29.0-33.0); MEAN CORPUSCULAR HGB CONC 32.7 g/dl (32.0-37.0); MEAN CORPUSCULAR VOLUME 91.2 fl (82.0-101.0); MEAN PLATELET VOLUME 9.5 fl (7.4-10.4); MONOCYTE # 0.5 10^3/ul (0.3-0.9); MONOCYTES % 10.8 % (0.0-11.0); NEUTROPHILS % 59.7 % (39.0-77.0); PLATELET COUNT 287 10^3/UL (140-415); RED BLOOD COUNT 3.52 10^6/ul (4.20-5.40); RED CELL DISTRIBUTION WIDTH 12.9 % (11.5-14.5); WHITE BLOOD COUNT 4.2 10^3/ul (4.8-10.8)
[2016-11-22 13:01] LABS: CREATININE 0.62 mg/dl (0.44-1.00); MAGNESIUM 1.9 mg/dl (1.7-2.5); POTASSIUM 3.6 mmol/L (3.5-5.1)
--- NOTE | 2016-11-22 13:05 | CONS ---
Date/Time of Note Date/Time of Note DATE: 11/22/16 TIME: 13:04 Consult Date/Type/Reason Admit Date/Time Nov 16, 2016 at 13:31 Initial Consult Date 11/16/16 Type of Consultation: Neurology Ordering Provider: RODRI NGUYEN Subjective no acute events Objective Vital Signs Date Time Temp Pulse Resp B/P Pulse Ox O2 Delivery O2 Flow Rate FiO2 11/22/16 12:00 63 11/22/16 11:23 98.1 18 147/98 100 11/22/16 08:00 Nasal Cannula 2.0 Intake and Output 11/21/16 11/21/16 11/22/16 15:00 23:00 07:00 Intake Total 1380 ml 390 ml Balance 1380 ml 390 ml Results/Medications Result Diagram: 11/22/16 1213 11/22/16 1213 Results 24 hrs Laboratory Tests Test 11/22/16 12:13 White Blood Count 4.2 L Red Blood Count 3.52 L Hemoglobin 10.5 L Hematocrit 32.1 L Mean Corpuscular Volume 91.2 Mean Corpuscular Hemoglobin 29.8 Mean Corpuscular Hemoglobin Concent 32.7 Red Cell Distribution Width 12.9 Platelet Count 287 Mean Platelet Volume 9.5 Neutrophils % 59.7 Lymphocytes % 26.4 Monocytes % 10.8 Eosinophils % 2.4 Basophils % 0.5 Nucleated Red Blood Cells % 0.0 Neutrophils # (Manual) 2.5 Lymphocytes # 1.1 Monocytes # 0.5 Eosinophils # 0.1 Basophils # 0.0 Nucleated Red Blood Cells # 0.0 Sodium Level 144 Potassium Level 3.6 Chloride Level 105 Carbon Dioxide Level 26 Anion Gap 17 H Blood Urea Nitrogen 4 L Creatinine 0.62 Glucose Level 91 Calcium Level 10.0 Magnesium Level 1.9 Medications Current Medications Ondansetron HCl 4 mg 4 mg Q8H PRN PO NAUSEA AND/OR VOMITING; Start 11/16/16 at 14:00 Sodium Chloride (NS) 1,000 ml @ 100 mls/hr Q10H IV Last administered on t 09:43; Admin Dose 100 MLS/HR; Start 11/16/16 at 13:33 Ondansetron HCl (Zofran Inj) 4 mg Q6H PRN IV NAUSEA AND/OR VOMITING; Start at 14:00 Acetaminophen (Tylenol Tab) 650 mg Q6H PRN PO PAIN LEVEL 1-3 OR FEVER Last administered on 11/21/16 11:01; Admin Dose 650 MG; Start 11/16/16 at 14:00 Docusate Sodium (Colace) 100 mg Q12H PRN PO CONSTIPATION; Start 11/16/16 at 14: 00 Bisacodyl (Dulcolax Supp) 10 mg DAILY PRN [place] CONSTIPATION; Start 11/16/16 at 14 :00 Pantoprazole (Protonix Tab) 40 mg DAILY@06 PO Last administered on 11/22/16 06 :36; Admin Dose 40 MG; Start 11/17/16 at 06:00 Lorazepam 1 mg 1 mg Q6H PRN IV SEIZURES Last administered on 11/21/16 11:25; Admin Dose 1 MG; Start 11/16/16 at 14:00 Ceftriaxone Sodium (Rocephin) 50 ml @ 100 mls/hr Q24H IVPB Last administered on 11/21/16 14:00; Admin Dose 100 MLS/HR; Start 11/16/16 at 14:00 Hydralazine HCl (Apresoline) 10 mg Q8H PRN IV ELEVATED BLOOD PRESSURE Last administered on 11/19/16 00:11; Admin Dose 10 MG; Start 11/16/16 at 17:00 Miscellaneous Information 1 ea NOTE XX ; Start 11/18/16 at 13:00 Glucose (Glutose) 15 gm Q15M PRN PO DECREASED GLUCOSE; Start 11/18/16 at 13:00 Glucose (Glutose) 22.5 gm Q15M PRN PO DECREASED GLUCOSE; Start 11/18/16 at 13: 00 Dextrose (D50w Syringe) 25 ml Q15M PRN IV DECREASED GLUCOSE Last administered on 11/18/16 18:34; Admin Dose 25 ML; Start 11/18/16 at 13:00 Dextrose (D50w Syringe) 50 ml Q15M PRN IV DECREASED GLUCOSE; Start 11/18/16 at 13:00 Glucagon (Glucagen) 1 mg Q15M PRN IM DECREASED GLUCOSE; Start 11/18/16 at 13:00 Glucose (Glutose) 15 gm Q15M PRN BUCCAL DECREASED GLUCOSE; Start 11/18/16 at 13 :00 Amlodipine Besylate (Norvasc) 5 mg DAILY NGT Last administered on 11/22/16 08: 10; Admin Dose 5 MG; Start 11/19/16 at 09:00 Atorvastatin Calcium (Lipitor) 10 mg QHS NGT Last administered on 11/21/16 21: 49; Admin Dose 10 MG; Start 11/19/16 at 21:00 Clonazepam (Klonopin) 1 mg BID NGT Last administered on 11/22/16 08:16; Admin Dose 1 MG; Start 11/19/16 at 09:00 Clopidogrel Bisulfate (plaVIX) 75 mg DAILY NGT Last administered on 11/22/16 08:10; Admin Dose 75 MG; Start 11/19/16 at 09:00 Donepezil HCl (Aricept) 5 mg DAILY NGT Last administered on 11/22/16 08:08; Admin Dose 5 MG; Start 11/19/16 at 09:00 Lisinopril (Zestril) 20 mg DAILY NGT Last administered on 11/22/16 08:10; Admin Dose 20 MG; Start 11/19/16 at 09:00 Magnesium Hydroxide (Milk Of Mag) 30 ml DAILY PRN NGT CONSTIPATION; Start 11/19 at 06:30 Metronidazole (Flagyl) 500 mg Q12 NGT Last administered on 11/22/16 08:08; Admin Dose 500 MG; Start 11/19/16 at 21:00; Stop 11/26/16 at 09:01 Lorazepam (Ativan) 1 mg HS PRN PO INSOMNIA; Start 11/22/16 at 00:00 Assessment/Plan Chief Complaint/Hosp Course Neuroexam: awake and alert, fluent speech, Ox3, follows commands No involuntary movements observed CN: blinks to threat, GUCCI 3-2mm, left facial droop, normal sensations, tongue on midline Motor: left sided weakness, 2+3-/5 LUE, slightly better 3/5 LLE, increased tone mildly Preserved LT, normal RUE coordination A/P: 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 Continue current tx Problems: KELLEY ESPANA MD Nov 22, 2016 13:05
[2016-11-22] MEDS: CEFTRIAXONE 1 GM/50 ML (PMX) 50 ML IVPB SCH (15:02)
[2016-11-22] MEDS: ACETAMINOPHEN 325 MG TAB PO PRN (20:51)
[2016-11-22] MEDS: ATORVASTATIN 10 MG TAB NGT SCH (20:52)
--- NOTE | 2016-11-22 23:31 | DS ---
Date/Time of Note Date/Time of Note DATE: 11/22/16 TIME: 23:30 Discharge Summary Admission/Discharge Info Admit Date/Time Nov 16, 2016 at 13:31 Discharge Date/Time Nov 23, 2016 Discharge Diagnosis Movement disorder, h/o multiple CVA Patient Condition: Good Consults Dutch Lira MD (Neurology) Procedures Brain CT Brain MRI Blood and urine cultures Hx of Present Illness Ms. Li is a 66-year-old woman with a previous history of middle cerebral artery cerebrovascular accident, vascular dementia, hypertension, and seizure disorder described as tremors or involuntary movement of the left upper extremity. She is treated with Keppra twice daily, and was transferred from her board and care facility ([facility]) with reported tremors of the left upper extremity. Her son indicated that she had been very rebellious against placement at other facilities, frequently leaving or complaining. She has been at [facility] for six weeks, having left placements at four previous facilities. She has three sons with 12 grandchildren, and the family has not been able to care for her at home. Hospital Course On presentation in the ER, she was not responsive, staring without speaking. She received Ativan in the ER, and was loaded with Keppra 1 g IV. She initially demonstrated left upper extremity involuntary movements, with eyes deviated to the left slightly, unable to answer questions and aphasic. She was admitted to telemetry, on seizure precautions. Dr. Marielena Negrete was consulted for Neurology, and noted left facial droop with left upper and lower extremity weakness. Brain CT and subsequent MRI showed only her old right MCA territory CVA. EEG showed slowing, but no seizure activity. Speech and swallowing evaluation did not demonstrate risk for aspiration. She was initially treated with Vimpat for suspected partial seizures starting dose 50 mg q12h, but this was discontinued in favor of clonazepam. Dr. Dutch Lira followed her over the weekend for Neurology, and urged continuation of the same treatment. Urine culture showed Gardnerella and Staph aureus, and she was treated with Rocephin. Blood cultures were all negative. When I evaluated her yesterday for the first time, she was very lethargic and non-cooperative. This morning was completely different, with normal conversation, good eye contact, and preserved strength and movement in the right arm and leg. In contrast to the previous neuro exams, she indicated she could not move her left arm and leg. But her son told me that she does have use of the left-sided extremities. Home Meds Active Scripts Cephalexin* (Cephalexin*) 500 Mg Capsule, 500 MG PO Q12 for 7 Days, CAP Prov:RODRI NGUYEN Tom 11/12/16 Levetiracetam* (Keppra*) 500 Mg Tablet, 500 MG PO BID, #120 TAB Prov:MEY DEL RIO MD 05/08/16 Ondansetron Hcl* (Zofran*) 4 Mg Tablet, 4 MG PO Q8H Y for NAUSEA AND/OR VOMITING , #12 TAB Prov:ASHLEE YUEN DO 04/05/16 Reported Medications Donepezil* (Aricept*) 5 Mg Tablet, 5 MG PO DAILY, TAB 05/04/16 Clopidogrel Bisulfate (Clopidogrel) 75 Mg Tablet, 75 MG PO DAILY, #30 TAB 02/24/16 Amlodipine Besylate* (Amlodipine Besylate*) 5 Mg Tablet, 5 MG PO DAILY, #30 02/24/16 Simvastatin (Simvastatin) 20 Mg Tablet, 20 MG PO QHS, #30 02/24/16 Lisinopril* (Lisinopril*) 20 Mg Tablet, 20 MG PO DAILY, #30 TAB 02/24/16 Follow-up Plan Follow up with neurology and primary care in the next two weeks. Primary Care Provider Ned Redmond MD Time spent on discharge: > 30 minutes Pending Labs Laboratory Tests Test 11/22/16 12:13 White Blood Count 4.210^3/ul (4.8-10.8) Red Blood Count 3.5210^6/ul (4.20-5.40) Hemoglobin 10.5g/dl (12.0-16.0) Hematocrit 32.1% (37.0-47.0) Mean Corpuscular Volume 91.2fl (82.0-101.0) Mean Corpuscular Hemoglobin 29.8pg (29.0-33.0) Mean Corpuscular Hemoglobin Concent 32.7g/dl (32.0-37.0) Red Cell Distribution Width 12.9% (11.5-14.5) Platelet Count 51522^3/UL (140-415) Mean Platelet Volume 9.5fl (7.4-10.4) Neutrophils % 59.7% (39.0-77.0) Lymphocytes % 26.4% (15.0-51.0) Monocytes % 10.8% (0.0-11.0) Eosinophils % 2.4% (0.0-7.0) Basophils % 0.5% (0.0-2.0) Nucleated Red Blood Cells % 0.0/100WBC (0.0-0.0) Neutrophils # (Manual) 2.510^3/ul (1.7-7.5) Lymphocytes # 1.110^3/ul (0.8-2.9) Monocytes # 0.510^3/ul (0.3-0.9) Eosinophils # 0.110^3/ul (0.0-0.5) Basophils # 0.010^3/ul (0.0-0.1) Nucleated Red Blood Cells # 0.010^3/ul (0.0-0.0) Erythrocyte Sedimentation Rate 9mm/Hr (0-30) Sodium Level 144mmol/L (135-144) Potassium Level 3.6mmol/L (3.5-5.1) Chloride Level 105mmol/L (97-110) Carbon Dioxide Level 26mmol/L (21-31) Anion Gap 17 (8-16) Blood Urea Nitrogen 4mg/dl (7-20) Creatinine 0.62mg/dl (0.44-1.00) Glucose Level 91mg/dl (70-220) Calcium Level 10.0mg/dl (8.4-10.2) Magnesium Level 1.9mg/dl (1.7-2.5) MELY HALL M.D. Nov 22, 2016 23:31
--- NOTE | 2016-11-22 23:32 | PDOCDIS ---
Discharge Instructions DIAGNOSIS Discharge Diagnosis Movement disorder, h/o multiple CVA CONDITION Patient Condition: Good HOME CARE INSTRUCTIONS: Diet Instructions: 2gm NaSpecial Diet: PUREED ACTIVITY: Activity Restrictions: Slowly Increase Activity FOLLOW UP/APPOINTMENTS Follow-up Plan Dr. Lira (Neurology) and primary care in the next two weeks. MELY HALL M.D. Nov 22, 2016 23:32
[2016-11-23] VITALS (11 sets, daily range): BP systolic 124–140; BP diastolic 71–88; PULSE 78–95; RESP 17–20
[2016-11-23] MEDS: SOD CHLORIDE 0.9% 1,000 ML IV SCH ×2 (05:33→16:00)
[2016-11-23] MEDS: PANTOPRAZOLE (EC) 40 MG TAB PO SCH (06:13)
[2016-11-23] MEDS: CLOPIDOGREL 75 MG TAB NGT SCH (09:10)
[2016-11-23] MEDS: metroNIDAZOLE 500 MG TAB NGT SCH ×2 (09:10→20:35)
[2016-11-23] MEDS: DONEPEZIL 5 MG TAB NGT SCH (09:10)
[2016-11-23] MEDS: clonAZEPAM 0.5 MG TAB NGT SCH ×2 (09:10→20:35)
[2016-11-23] MEDS: LISINOPRIL 20 MG TAB NGT SCH (09:11)
[2016-11-23] MEDS: AMLODIPINE 5 MG TAB NGT SCH (09:11)
[2016-11-23] MEDS: CEFTRIAXONE 1 GM/50 ML (PMX) 50 ML IVPB SCH (14:56)
--- NOTE | 2016-11-23 17:00 | PN ---
Date/Time of Note Date/Time of Note DATE: 11/23/16 TIME: 16:39 Assessment/Plan VTE Prophylaxis VTE Prophylaxis Intervention: SCD's Lines/Catheters IV [facility] Urinary Cath still in place: No Assessment/Plan Assessment/Plan 66-year-old female with: 1. Left > Right upper extremity tremors, involuntary movements, patient with also seizure disorder. Per Neuro likely to be movement disorder but cannot exclude partial seizures Much improved involuntary movements on Klonopin, appreciate neurology follow-up and care Patient did start physical therapy today, she is tolerating p.o. She has been off restraints for days now, sitter has been at bedside as patient can be impulsive and she is currently unsteady. CT head noncontrast only shows old CVAs, EEG no seizure activity, MRI brain no acute finding, chronic multiple CVAs noted. Continue current Keppra dosing, Vimpat added and trial of Klonopin. Continue current diet on pure diet. 2. Multiple old CVAs: Continue antiplatelet and statin once patient able to take p.o. Blood pressure control. Repeat MRI brain still pending 3. Dementia, likely vascular dementia, alert and oriented 1-2 at baseline. Continue Aricept once patient able to take p.o. 4. Hypertension: Controlled, continue home medications. 5. Hyperlipidemia and previous CVA, continue statin therapy once able to take p.o. 6. Positive UA and Urine culture with staph aureus and Gardnerella vaginalis. Continue Flagyl for total of 7 days, also on Rocephin. Prophylaxis: Seizure precautions, SCDs for DVT prophylaxis, Protonix for GI prophylaxis Disposition: [facility] with [facility], patient will need neurology outpatient follow-up. Subjective 24 Hr Interval Summary Free Text/Dictation Patient has improved, on Klonopin with much less hemiballismus and involuntary movements. She is tolerating p.o. She is tolerating medications. Daughter physical therapy this morning, she will be discharged to prison facility today if bed available. Because of her underlying dementia and hemiballismus the patient is fairly unsteady when getting out of bed and if she is not reliable to stay in bed. Therefore a sitter has been at the bedside and recommendation is for the patient to have a sitter at [facility] a couple of days while she is getting more physical therapy. Exam/Review of Systems Vital Signs Vitals Vital Signs Date Time Temp Pulse Resp B/P Pulse Ox O2 Delivery O2 Flow Rate FiO2 11/23/16 15:45 97.9 88 20 132/80 100 11/22/16 17:58 21 11/22/16 08:00 Nasal Cannula 2.0 Intake and Output 11/22/16 11/22/16 11/23/16 15:00 23:00 07:00 Intake Total 550 ml 700 ml Balance 550 ml 700 ml Exam Constitutional: alert, frail, oriented Respiratory: clear to auscultation, normal air movement Cardiovascular: nl pulses, regular rate and rhythm Gastrointestinal: non-tender, soft Musculoskeletal: nl extremities to inspection Extremities: normal pulses, other (No edema, clubbing or cyanosis) Neurological: [employer] II-XII intact, nl mental status, nl speech, nl strength Results Result Diagram: 11/22/16 1213 11/22/16 1213 Medications Medications Current Medications Ondansetron HCl 4 mg 4 mg Q8H PRN PO NAUSEA AND/OR VOMITING; Start 11/16/16 at 14:00 Sodium Chloride (NS) 1,000 ml @ 100 mls/hr Q10H IV Last administered on 15:11; Admin Dose 100 MLS/HR; Start 11/16/16 at 13:33 Ondansetron HCl (Zofran Inj) 4 mg Q6H PRN IV NAUSEA AND/OR VOMITING; Start at 14:00 Acetaminophen (Tylenol Tab) 650 mg Q6H PRN PO PAIN LEVEL 1-3 OR FEVER Last administered on 11/22/16 20:51; Admin Dose 650 MG; Start 11/16/16 at 14:00 Docusate Sodium (Colace) 100 mg Q12H PRN PO CONSTIPATION; Start 11/16/16 at 14: 00 Bisacodyl (Dulcolax Supp) 10 mg DAILY PRN [place] CONSTIPATION; Start 11/16/16 at 14 :00 Pantoprazole (Protonix Tab) 40 mg DAILY@06 PO Last administered on 11/23/16 06 :13; Admin Dose 40 MG; Start 11/17/16 at 06:00 Lorazepam 1 mg 1 mg Q6H PRN IV SEIZURES Last administered on 11/21/16 11:25; Admin Dose 1 MG; Start 11/16/16 at 14:00 Ceftriaxone Sodium (Rocephin) 50 ml @ 100 mls/hr Q24H IVPB Last administered on 11/23/16 14:56; Admin Dose 100 MLS/HR; Start 11/16/16 at 14:00 Hydralazine HCl (Apresoline) 10 mg Q8H PRN IV ELEVATED BLOOD PRESSURE Last administered on 11/19/16 00:11; Admin Dose 10 MG; Start 11/16/16 at 17:00 Miscellaneous Information 1 ea NOTE XX ; Start 11/18/16 at 13:00 Glucose (Glutose) 15 gm Q15M PRN PO DECREASED GLUCOSE; Start 11/18/16 at 13:00 Glucose (Glutose) 22.5 gm Q15M PRN PO DECREASED GLUCOSE; Start 11/18/16 at 13: 00 Dextrose (D50w Syringe) 25 ml Q15M PRN IV DECREASED GLUCOSE Last administered on 11/18/16 18:34; Admin Dose 25 ML; Start 11/18/16 at 13:00 Dextrose (D50w Syringe) 50 ml Q15M PRN IV DECREASED GLUCOSE; Start 11/18/16 at 13:00 Glucagon (Glucagen) 1 mg Q15M PRN IM DECREASED GLUCOSE; Start 11/18/16 at 13:00 Glucose (Glutose) 15 gm Q15M PRN BUCCAL DECREASED GLUCOSE; Start 11/18/16 at 13 :00 Amlodipine Besylate (Norvasc) 5 mg DAILY NGT Last administered on 11/23/16 09: 11; Admin Dose 5 MG; Start 11/19/16 at 09:00 Atorvastatin Calcium (Lipitor) 10 mg QHS NGT Last administered on 11/22/16 20: 52; Admin Dose 10 MG; Start 11/19/16 at 21:00 Clonazepam (Klonopin) 1 mg BID NGT Last administered on 11/23/16 09:10; Admin Dose 1 MG; Start 11/19/16 at 09:00 Clopidogrel Bisulfate (plaVIX) 75 mg DAILY NGT Last administered on 11/23/16 09:10; Admin Dose 75 MG; Start 11/19/16 at 09:00 Donepezil HCl (Aricept) 5 mg DAILY NGT Last administered on 11/23/16 09:10; Admin Dose 5 MG; Start 11/19/16 at 09:00 Lisinopril (Zestril) 20 mg DAILY NGT Last administered on 11/23/16 09:11; Admin Dose 20 MG; Start 11/19/16 at 09:00 Magnesium Hydroxide (Milk Of Mag) 30 ml DAILY PRN NGT CONSTIPATION; Start 11/19 at 06:30 Metronidazole (Flagyl) 500 mg Q12 NGT Last administered on 11/23/16 09:10; Admin Dose 500 MG; Start 11/19/16 at 21:00; Stop 11/26/16 at 09:01 Lorazepam (Ativan) 1 mg HS PRN PO INSOMNIA; Start 11/22/16 at 00:00 RODRI NGUYEN Nov 23, 2016 16:49
[2016-11-23] MEDS: ATORVASTATIN 10 MG TAB NGT SCH (20:35)
[2016-11-23] MEDS: ACETAMINOPHEN 325 MG TAB PO PRN (20:35)
== END 2016-11-23 21:25 | DRG 57 ==
LOC: E/R 07:32 → MS4 13:31
PROVIDERS: ADMIT Internal Medicine; ATTEND Internal Medicine
DX: I69.398 Other sequelae of cerebral infarction (principal); G26 Extrapyramidal and movement disorders in diseases classified elsewhere; G25.5 Other chorea; F01.50 Vascular dementia, unspecified severity, without behavioral disturbance, psychotic disturbance, mood disturbance, and anxiety; G40.909 Epilepsy, unspecified, not intractable, without status epilepticus; I69.354 Hemiplegia and hemiparesis following cerebral infarction affecting left non-dominant side; I69.392 Facial weakness following cerebral infarction; I10 Essential (primary) hypertension; E78.5 Hyperlipidemia, unspecified; N39.0 Urinary tract infection, site not specified; B95.61 Methicillin susceptible Staphylococcus aureus infection as the cause of diseases classified elsewhere
CPT/HCPCS: 36415; 70450; 70551; 71010; 80048; 80053; 80061; 81001; 82962; 83735; 84100; 84484; 85025; 85651; 87040; 87081; 87086; 92526; 92610; 93005; 95819; 96361; 96374; 96375; 96376; 97116; 97162; 97530; A4310; J0360; J0696; J1815; J1953; J2060; J3475; J3480; J7030

== ENCOUNTER 2016-12-02 14:03 | Emergency (ER) | payer OTHER ==
[~2016-12-02] VITALS: Ht 165.1 cm; Wt 54.5 kg
[2016-12-02] MEDS ORDERED: LORAZEPAM 2 MG INJ ONE (14:26)
[2016-12-02] MEDS ORDERED: LORAZEPAM 2 MG INJ IM ONE (14:30)
[2016-12-02 14:40] VITALS: Ht 165.1 cm; Wt 54.5 kg
[2016-12-02 16:17] LABS: CALCIUM 10.2 mg/dl (8.4-10.2); CREATININE 0.69 mg/dl (0.44-1.00); POTASSIUM 3.6 mmol/L (3.5-5.1)
--- NOTE | 2016-12-02 17:04 | RADRPT ---
PROCEDURE: CT head without intravenous contrast CLINICAL INDICATION: History of stroke. Shaking extremities. COMPARISON: MRI from 11/21/2016. CT from 11/16/2016 and 10/17/2008 and 05/04/2016. TECHNIQUE: Axial CT images from skull base to vertex with coronal and sagittal reformats. DOSE: The estimated administered radiation dose was CTDI vol = 45 mGy. DLP = 630 mGy-cm. One or mor e of the following dose reduction techniques were used: automated exposure control, adjustment of th e mA and/or kV according to patient size, or use of iterative reconstruction. FINDINGS: Parenchyma: Encephalomalacia and iliopsoas within the right middle cerebral artery territory related to remote infarction. Moderate amount of periventricular and subcortical white matter hypodensity, a nonspecific finding often associated with chronic microangiopathy. Ventricles: Proportion ex vacuo ventricular dilation. No ventricular effacement. Extra-axial spaces: No herniation or midline shift. 8 x 5 mm calcification arising from the inner ta ble of the right frontal calvarium which may represent a calcified meningioma. Paranasal sinuses: Clear. Mastoids and middle ears: Clear. Visualized orbits: Normal. Vessels: No calcified atherosclerotic arterial plaque identified. Bones: Normal. Extracranial soft tissues: Normal. Additional comment: None. IMPRESSION: 1. Chronic residua of old right middle cerebral artery territory infarction. 2. Moderate white matter changes, a nonspecific finding often associated with chronic microangiopath y. 3. No acute hemorrhage or new large territorial infarction. If there is high clinical suspicion for acute infarct, an MRI would provide additional information. RPTAT: PP Physician Alice Date Time Electronically viewed and signed by Physician Alice on 12/02/2016 17:04 LG/
[2016-12-02] MEDS ORDERED: CLON-412 PO (17:24)
--- NOTE | 2016-12-02 17:24 | ERD ---
ER Documentation Chief Complaint Date/Time DATE: 12/02/16 TIME: 17:20 Chief Complaint BROUGHT IN VIA EMS DUE TO UNCONTROLLED SHAKING HPI This is a 66-year-old female who is brought in via EMS from assisted living facility because of shaking. Patient is not able to provide significant history but states that she has had shaking before. The shaking is worse today. The patient has limited other information other than denying any headache fevers chills or abdominal pain. Based on EMR reviewed appears the patient had recent hospitalization for seizure workup which was negative. The patient has been diagnosed with hemiballismus and was supposed to be taking Klonopin. It is unclear if the patient is receiving this medication. ROS All systems reviewed and are negative except as per history of present illness. Medications Home Meds Active Scripts Cephalexin* (Cephalexin*) 500 Mg Capsule, 500 MG PO Q12 for 7 Days, CAP Prov:RODRI NGUYEN 11/12/16 Levetiracetam* (Keppra*) 500 Mg Tablet, 500 MG PO BID, #120 TAB Prov:MEY DEL RIO MD 05/08/16 Ondansetron Hcl* (Zofran*) 4 Mg Tablet, 4 MG PO Q8H Y for NAUSEA AND/OR VOMITING , #12 TAB Prov:ASHLEE YUEN DO 04/05/16 Reported Medications Donepezil* (Aricept*) 5 Mg Tablet, 5 MG PO DAILY, TAB 05/04/16 Clopidogrel Bisulfate (Clopidogrel) 75 Mg Tablet, 75 MG PO DAILY, #30 TAB 02/24/16 Amlodipine Besylate* (Amlodipine Besylate*) 5 Mg Tablet, 5 MG PO DAILY, #30 02/24/16 Simvastatin (Simvastatin) 20 Mg Tablet, 20 MG PO QHS, #30 02/24/16 Lisinopril* (Lisinopril*) 20 Mg Tablet, 20 MG PO DAILY, #30 TAB 02/24/16 Allergies Allergies: Coded Allergies: codeine (Verified Allergy, Severe, 12/02/16) PMhx/Soc Hx Miscellaneous Medical Probl: Yes (Dementia. Seizure disorder. ) Smoking Status: Unknown if ever smoked FmHx Family History: No diabetes Physical Exam Vitals Vital Signs Date Time Temp Pulse Resp B/P Pulse Ox O2 Delivery O2 Flow Rate FiO2 12/02/16 14:40 99.5 99 22 131/71 98 Physical Exam General: Thin, hemiballismus of extremities left side of the body greater than right head: Normocephalic, atraumatic Eyes: Pupils equally reactive, EOM intact ENT: Moist mucous membranes Neck: Supple, no lymphadenopathy Respiratory: Lungs clear bilaterally, no distress Cardiovascular: RRR, no murmurs, rubs, or gallops Abdominal: Soft, non-tender, non-distended, no peritoneal signs : Deferred MSK: No edema, no unilateral swelling, 5/5 strength Neurologic: Alert and answering simple commands, hemiballismus of the left upper extremity as described above skin: No rash Psych: Normal mood Result Diagram: 12/02/16 1530 Results 24 hrs Laboratory Tests Test 12/02/16 15:30 Sodium Level 143mmol/L Potassium Level 3.6mmol/L Chloride Level 109mmol/L Carbon Dioxide Level 26mmol/L Anion Gap 12 Blood Urea Nitrogen 11mg/dl Creatinine 0.69mg/dl Glucose Level 84mg/dl Calcium Level 10.2mg/dl Current Medications Medications (Trade) Dose Ordered Sig/Angie Route PRN Reason Start Time Stop Time Status Last Admin Dose Admin Lorazepam (Ativan) 1 mg ONCE ONCE IM 12/02/16 14:30 12/02/16 14:31 DC 12/02/16 14:27 Lorazepam (Ativan) 2 mg STK-MED ONCE .ROUTE 12/02/16 14:26 12/02/16 14:27 DC Procedures/MDM EKG, MONITORS, & DIAGNOSTIC IMAGING: CT brain: No evidence of acute intracranial process per radiology read LAB INTERPRETATION: No electrolyte abnormalities MEDICAL DECISION MAKING: The patient presents with shakiness worse than baseline. This is consistent with hemiballismus. I was able to speak to Dr. Guy LOWRY. She describes recent hospitalization with thorough workup including diagnostic imaging, EEG with a diagnosis of hemiballismus. She states that the patient is supposed to be taking Klonopin and it is unlikely that she is receiving this at the assisted living facility. We discussed plan of care including electrolytes and CT brain to rule out hemorrhagic process. If negative the patient should be discharged back to assisted living facility with a prescription for Klonopin 1 mg twice daily. ER COURSE: The patient was given Ativan 1 mg IM is resting comfortably with no further hemiballismus. Laboratory testing and diagnostic imaging is unrevealing and the patient can be safely discharged back to assisted living facility. I kept the patient and/or family informed of laboratory and diagnostic imaging results throughout the emergency room course. DISPOSITION PLAN: We discussed follow up with the patient's primary care doctor within 24 to 48 hours as needed. We also discussed return to the emergency room for worsening symptoms or worsening condition. Outpatient referral: [None required] Discharge Medications: Klonopin 1 mg twice daily Departure Diagnosis: Primary Impression: Hemiballismus Condition: Stable SILVANA ELLIOTT MD Dec 02, 2016 17:24
[2016-12-02 22:51] VITALS: BP 127/83; PULSE 72; RESP 18; TEMP 99
== END 2016-12-02 22:53 ==
LOC: E/R 14:03
DX: G25.5 Other chorea (principal); R40.2142 Coma scale, eyes open, spontaneous, at arrival to emergency department; R40.2362 Coma scale, best motor response, obeys commands, at arrival to emergency department
CPT/HCPCS: 70450; 80048; 96372; J2060; Z7502